=== PATIENT | female | born 1960 | race Caucasian/White ===

== ENCOUNTER → 2019-06-09 14:19 | Outpatient (BNVA) | payer MEDICAID, SELFPAY | PROVIDERS: Family Provider Nurse Practitioner Family; PCP Nurse Practitioner Family; Visit Provider Internal Medicine Cardiovascular Disease | DX: E87.6 Hypokalemia (principal) | CPT/HCPCS: 80048 ==

== ENCOUNTER 2019-06-13 07:15 | Outpatient (CLI) | payer MEDICAID, SELFPAY ==
[2019-06-13 07:20] VITALS: BMI 33.3
--- NOTE | 2019-06-13 07:20 | ECG_ITS ---
NAME OF STUDY: LEXISCAN SESTAMIBI STRESS TEST INDICATION: Chest Pain PROCEDURE: At the baseline, the EKG revealed normal sinus rhythm with diffuse nonspecific ST-T changes. Poor R wave progression. The baseline blood pressure was 134/79 mm Hg with a heart rate of70 beats/min. Lexiscan was infused over a period of 20 seconds. A total of 0.4 milligrams of Lexiscan was infused. The stress phase was continued for a total of 5 minutes. Heart rate at the end of the stress phase was 74 with a blood pressure 122/67. The EKG at the peak infusion revealed no significant changes; frequent PVCs were noted. Sestamibi was injected 20 seconds after the Lexiscan infusion. Blood pressure at the end of the recovery phase was 129/68 with a heart rate of 73 per minute. CONCLUSION: 1. No significant EKG changes with the LexiScan infusion 2. No LexiScan induced chest pain . Lexiscan induced ventricular arrhythmia was noted 3. Normal blood pressure and heart rate response 4. Sestamibi/sestamibi perfusion scan pending; see separate report. Electronically Signed On 06-17-2019 10:05:21 INSULATION BOARD CALENDER OPERATOR by Sofiya Duran M.D. [id number]
--- NOTE | 2019-06-13 07:21 | NMCV_ITS ---
Patrice Phillips Age: 59 Gender: F : 1960 Exam Date: 06/13/2019 08:04 Ordering Phys: Sofiya Duran MD ([email or web address]) Technologist: RERE Solis Exam Location: [facility] Indications: Chest pain STRESS TEST [facility] IMAGE PROTOCOL Rest/Stress 1 Lexiscan Day Radiopharmaceutical Dose (mCi) Administration Site Administered by Rest: Tc-99m 10.2 IV Pearl Fredy, [employer] Sestamibi Stress:Tc-99m 31.4 IV Pearl Carldeclan, AUTOMOTIVE GLASS MECH[employer]IC Sestamibi Rest: 13-Jun-2019 90 Discovery 630 Stress: 13-Jun-2019 60 Discovery 630 0.4mg Lexiscan. Images obtained in supine and prone position. SPECT RESULTS Technical Quality: Poor on rest study due to hot spot artifact Raw Data Analysis: Normal on stress images Image Corrections: No attenuation or motion correction applied Summed Stress Score: 4 Summed Rest Score: 35 Summed Difference Score: 0 PERFUSION FINDINGS Generalized attenuation of the tracer uptake in the resting images in view of the hotspot. Stress images showing some small areas of decreased tracer uptake in the anterior wall, inferior wall and apical segments. No significant reversibility was noted. FUNCTIONAL RESULTS (calculated via Gated SPECT) Stress Image LV EF (%): 47 Stress EDV (mL):163 TID: 1.26 Stress ESV (mL):87 FUNCTIONAL FINDINGS: Segmental wall motion analysis revealed diffuse hypokinesia of the left ventricle IMPRESSIONS 1. Technically difficult study because of the generalized attenuation artifact in the resting images. 2. Left ventricular ejection fraction 47% 3. LV wall motion analysis revealing mild diffuse hypokinesia of the left ventricle 4. Moderately dilated LV cavity 5. Elevated transient ischemic dilatation ratio may suggest endocardial ischemia The reliability of the of the findings are compromised. Consider repeating this test or other imaging modalities. Dr Sofiya Duran MD FACC (Electronically Signed) Final Date: 15 June 2019 18:35 S
--- NOTE | 2019-06-13 10:17 | PC.NURSE ---
STRESS TEST INFORMATION THIS NURSE WAS NOTIFIED BY NOELLE RESTREPO, [employer] [facility], THAT THE PATIENTS REST IMAGES WERE ABNORMAL ON THE ORIGINAL SCAN AND ON A REPEAT ONE 30 MINUTES LATER. NOELLE HAD NOTIFIED DR WILLINGHAM AND THE IMAGES WERE LOOKED AT. NEW ORDERS WERE RECEIVED FROM DR WILLINGHAM TO DO AN ECHO BEFORE PROCEEDING WITH THE STRESS TEST. GREGORIO FROM WAS NOTIFIED AND SHE NOTED THAT THE PATIENT HAD HAD A NORMAL ECHO LAST . DR WILLINGHAM WAS NOTIFIED OF THIS. ORDERS WERE GIVEN TO CANCEL THE ECHO AND RESUME THE STRESS TEST. GREGORIO FROM AND NOELLE FROM [employer] [facility] WERE NOTIFIED. THE PATIENT AND HER DAUGHTER IN LAW WERE UPDATED AND VERBALIZED THEIR UNDERSTANDING. THE STRESS TEST WAS THEN CARRIED OUT.
[2019-06-13] MEDS: regadenoson 0.4 Mg/5 ml Syringe IVP (10:56)
[2019-06-13 11:13] VITALS: BP 129/68; PULSE 78
== END 2019-06-13 07:16 | disposition home or self-care (01) ==
LOC: RAD 07:21 → CDL 08:23
PROVIDERS: Family Provider Nurse Practitioner Family; Visit Provider Internal Medicine Cardiovascular Disease
DX: R07.9 Chest pain, unspecified (principal)
CPT/HCPCS: 78452; 93017; A9500; J2785

== ENCOUNTER → 2019-06-16 14:48 | Outpatient (BNVA) | payer MEDICAID, SELFPAY | PROVIDERS: Family Provider Nurse Practitioner Family; Visit Provider Internal Medicine Cardiovascular Disease | DX: E87.6 Hypokalemia (principal) | CPT/HCPCS: 80048 ==

== ENCOUNTER → 2019-06-19 13:05 | Outpatient (BNVA) | payer MEDICAID, SELFPAY | PROVIDERS: Family Provider Nurse Practitioner Family; Visit Provider Internal Medicine Cardiovascular Disease | DX: E87.6 Hypokalemia (principal) | CPT/HCPCS: 36415; 80048 ==

== ENCOUNTER 2019-06-20 15:13 | Emergency (ER) | payer MEDICAID, SELFPAY | END 2019-06-20 22:04 | disposition admitted as inpatient to this hospital (09) | LOC: ER 07-16 10:16 | PROVIDERS: Emergency Provider Emergency Medicine; Family Provider Nurse Practitioner Family | DX: K72.00 Acute and subacute hepatic failure without coma (principal); F17.210 Nicotine dependence, cigarettes, uncomplicated | CPT/HCPCS: 36415; 36416; 70450; 80053; 80307; 81001; 82140; 82962; 84443; 85025; 85610; 85730; 93005; 96365; 99283; 99285; A9270 ==

== ENCOUNTER 2019-06-20 15:13 | Inpatient (IN) | payer MEDICAID, SELFPAY ==
[2019-06-20 15:20] VITALS: BP 166/103; PULSE 70; RESP 20; TEMP 36.6; O2SAT 95; BMI 31.3
--- NOTE | 2019-06-20 15:32 | CTR_ITS ---
PROCEDURE INFORMATION: Exam: CT Head Without Contrast Exam date and time: 06/20/2019 3:33 PM Age: 59 years old Clinical indication: Altered mental status/memory loss and dizziness; Patient HX: Found on floor at home. C/O dizziness and confusion. ; Additional info: Symptoms of acute stroke TECHNIQUE: Imaging protocol: Computed tomography of the head without contrast. Total DLP: 1037.15 mGy-cm Radiation optimization: All CT scans at this facility use at least one of these dose optimization techniques: automated exposure control; mA and/or kV adjustment per patient size (includes targeted exams where dose is matched to clinical indication); or iterative reconstruction. COMPARISON: CT head wo con* [id number] 11/06/2018 1:52 PM FINDINGS: Brain: Unchanged volume loss and small vessel disease changes. No hemorrhage. Unremarkable white matter. No mass effect. Ventricles: Normal. No ventriculomegaly. Bones/joints: Unremarkable. No acute fracture. Sinuses: Visualized sinuses are unremarkable. No fluid levels. Mastoid air cells: Visualized mastoid air cells are well aerated. Soft tissues: Unremarkable. CT/CT head wo con* [id number] IMPRESSION: No acute intracranial abnormality. Radiation Dose CTDIVOL = (mGy): DLP = 1037.15 (mGy-cm)
--- NOTE | 2019-06-20 15:32 | ECG_ITS ---
Measurements Intervals [place] Rate: 87 P: 46 [place]: 175 QRS: 66 QRSD: 101 T: 57 QT: 382 QTc: 460 SINUS RHYTHM POSSIBLE ANTERIOR MYOCARDIAL INFARCTION [30 ms Q WAVE IN V3/V4, OR R < 0.2 mV IN V4], OF INDETERMINATE AGE Compared to ECG 11/06/2018 18:26:09 Ventricular premature complex(es) no longer present Myocardial infarct finding still present Electronically Signed On 06-21-2019 18:01:39 HYDRAULIC OIL TOOL OPERATOR by Freddy Carrion M.D. [id number] f
[2019-06-20 16:23] LABS: Basophils % 0.3 %; Eosinophils # 0.2 10^3/uL (0.0-0.8); Eosinophils % 2.2 %; Hematocrit 48.6 % (37.0-47.0); Hemoglobin 16.8 g/dL (11.5-15.3); Lymphocytes # 2.4 10^3/uL (0.8-4.8); Lymphocytes % 33.2 %; Mean Corpuscular HGB Conc 34.6 g/dL (30.0-36.0); Mean Corpuscular Hemoglobin 33.9 pg (28.0-34.0); Mean Corpuscular Volume 98.2 fL (81-99); Mean Platelet Volume 10.7 fL (7.4-10.4); Monocytes # 0.8 10^3/uL (0.2-0.9); Neutrophils # 3.9 10^3/uL (1.8-7.7); Neutrophils % 53.2 %; Nucleated Red Blood Cells % 0 %; Platelet Count 112 10^3/cmm (130-400); Red Blood Count 4.95 10^6/uL (4.1-5.3); Red Cell Distribution Width 14.5 % (12.1-15.1); White Blood Count 7.4 10^3/uL (4.0-10.0)
[2019-06-20 16:33] LABS: INR 1.49 (0.8-1.2)
[2019-06-20 16:34] LABS: Partial Thromboplastin Time 35.8 SECONDS (23.9-36.7)
[2019-06-20 16:37] LABS: Alanine Aminotransferase 19 U/L (0-33); Albumin Level 3.1 g/dL (3.5-5.2); Alkaline Phosphatase 109 IU/L (35-105); Anion Gap 16.9 (5-19); Aspartate Amino Transferase 54 U/L (0-32); Blood Urea Nitrogen 10 mg/dL (8-23); Calcium 10.7 mg/dL (8.5-10.5); Carbon Dioxide 22 mmol/L (22-29); Chloride 98 mmol/L (98-107); Creatinine Clr Calc Pharmacy 98.7888; Globulin 4.7 g/dL (1.3-4.6); Glomerular Filtration Rate 101.6 mL/min (90-130); Glucose 77 mg/dL (74-106); Potassium 3.9 mmol/L (3.5-5.1); Sodium 133 mmol/L (136-145); Total Bilirubin 4.5 mg/dL (0.15-1.2); Total Protein 7.8 g/dL (6.6-8.7)
[2019-06-20 17:02] VITALS: BP 131/80; PULSE 88; RESP 20; TEMP 36.7; O2SAT 94
[2019-06-20 17:31] LABS: Glucose Point of Care 66 mg/dL (70-110)
[2019-06-20 18:51] LABS: Glucose Point of Care 91 mg/dL (70-110)
--- NOTE | 2019-06-20 18:53 | ED_ITS ---
Entered by Selena Hernandez, acting as scribe for Montez Liao MD Jun 20, 2019 15:13 HPI - Altered Mental Status General: Chief Complaint: Altered Mental Status Stated Complaint: Confused Time Seen by Provider: 06/20/19 18:54 Source: family and RN notes reviewed Mode of arrival: ambulatory Limitations: altered mental status History of Present Illness: HPI narrative: 59 yo female presents to ED with complaints of low potassium. The labs were drawn yesterday. The daughter states after she returned from taking her children to school this morning, she found t he patient was found on the floor this morning. The patient has a cataract on her R eye that she will be having surgery on soon with Dr Hernandez. The patient keeps saying she is fine. Her daughter gave the history. MD complaint: altered mental status Onset (ago): hour(s) Timing confirmed by: family member Severity: moderate Consistency of symptoms: Waxing and Waning Context: unknown Associated symptoms: Reports no associated symptoms; Deny depression Review of Systems Const: Denies: fever or chills ENMT: Denies: throat pain or mouth pain Card: Denies: chest pain Resp: Denies: shortness of breath GI: Denies: abdominal pain, nausea, vomiting or diarrhea : Denies: difficulty urinating Musc: Denies: back pain or joint pain Skin/Breast: Denies: rash Neuro: Reports: confusion; Denies: headache Psych: Denies: depression Endo: Denies: excessive urination Dudley/Lymph: Denies: easy bruising All/Imm: Denies: hives PFSH ED 2 PFSH: Statuses (acute, chronic, etc) shown below reflect problem list status as previously entered and may not be historically accurate Medical History (Updated 06/20/19 @ 21:16 by Montez Liao MD) Hypokalemia (Acute) Social History Smoking and tobacco status: current every day smoker Physical Exam Const: COMMON NORMALS: no apparent distress and healthy appearing HENMT: COMMON NORMALS: normocephalic and external nose normal HEAD & SCALP: normocephalic NOSE: external nose normal Eye: COMMON NORMALS: PERRL PUPIL: Yes PERRL Neck/C-Spine: COMMON NORMALS: full ROM and no lymphadenopathy Chest: COMMONS NORMALS: inspection of chest normal Resp: COMMON NORMALS: normal respiratory effort, no use of accessory muscles and clear to auscultation bilaterally AUSCULTATION: clear to auscultation bilaterally Cardio: COMMON NORMALS: regular rate and regular rhythm RATE: regular rate RHYTHM: regular rhythm GI: COMMON NORMALS: normal to inspection, nondistended, normoactive bowel s ounds, soft to palpation, non-tender and no masses PALPATION: Yes soft Back/Pelvis: THORACIC SPINE/UPPER BACK: Yes normal to inspection Extremity: COMMON NORMALS: normal to inspection, full ROM and normal capillary refill Neuro: OTHER: Patient is confused. She is orientated to self disorientated to time and place. Psych: COMMON NORMALS: mental status grossly normal and cooperative Skin: COMMON NORMALS: no rashes or lesions noted GENERAL SKIN EXAM: no rashes or lesions noted Course Vital Signs: Vital signs: Vital Signs Temperature 98.1 F 06/20/19 17:02 Pulse Rate 88 06/20/19 17:02 Respiratory Rate 20 H 06/20/19 17:02 Blood Pressure 131/80 06/20/19 17:02 Pulse Oximetry 94 06/20/19 17:02 MDM - Altered Mental Status MDM Narrative: Medical decision making narrative: Patient presents here with altered mental status and confusion likely from hepatic encephalopathy. Patient has not been taking her lactulose and her ammonia level is elevated. We will give her lactulose here and I spoke to hospitalist and will admit for further treatment. She has no signs of meningitis. Head CT here is normal. Patient also likely has slight dementia as well. Lab Data: Labs: Lab Results 06/20/19 06/20/19 06/20/19 Range/Units 16:15 16:15 16:15 WBC 7.4 (4.0-10.0) 10^3/ uL RBC 4.95 (4.1-5.3) 10^6/u L Hgb 16.8 H (11.5-15.3) g/dL Hct 48.6 H (37.0-47.0) % MCV 98.2 (81-99) fL MCH 33.9 (28.0-34.0) pg MCHC 34.6 (30.0-36.0) g/dL RDW 14.5 (12.1-15.1) % Plt Count 112 L (130-400) 10^3/c mm MPV 10.7 H (7.4-10.4) fL Neut % (Auto) 53.2 % Lymph % (Auto) 33.2 % Gates % (Auto) 11.0 % Eos % (Auto) 2.2 % Baso % (Auto) 0.3 % Neut # (Auto) 3.9 (1.8-7.7) 10^3/u L Lymph # (Auto) 2.4 (0.8-4.8) 10^3/u L Gates # (Auto) 0.8 (0.2-0.9) 10^3/u L Eos # (Auto) 0.2 (0.0-0.8) 10^3/u L Baso # (Auto) 0.0 (0.0-0.1) 10^3/u L Nucleated RBC % (a uto) 0 % Nucleated RBCs # 0.0 /100WBC PT 18.50 H (10.5-13.3) SECO NDS INR 1.49 H (0.8-1.2) APTT 35.8 (23.9-36.7) SECO NDS Sodium 133 L (136-145) mmol/L Potassium 3.9 (3.5-5.1) mmol/L Chloride 98 (98-107) mmol/L Carbon Dioxide 22 (22-29) mmol/L Anion Gap 16.9 (5-19) BUN 10 (8-23) mg/dL Creatinine 0.6 (0.5-0.9) mg/dL GFR Calculation 101.6 (90-130) mL/min Glucose 77 (74-106) mg/dL POC Glucose (70-110) mg/dL Calcium 10.7 H (8.5-10.5) mg/dL Total Bilirubin 4.5 H (0.15-1.2) mg/dL AST 54 H (0-32) U/L ALT 19 (0-33) U/L Alkaline Phosphata se 109 H (35-105) IU/L Ammonia (11-51) umol/L Total Protein 7.8 (6.6-8.7) g/dL Albumin 3.1 L (3.5-5.2) g/dL Globulin 4.7 H (1.3-4.6) g/dL Urine Color (Yellow) Urine Appearance (CLEAR) Urine pH (5-7) Ur Specific Gravit y (1.005-1.030) Urine Protein (Negative) Urine Glucose (UA) (Normal) Urine Ketones (Negative) Urine Occult Blood (Negative) Urine Nitrate (Negative) Urine Bilirubin (NEGATIVE) Urine Urobilinogen (Negative) mg/dL Ur Leukocyte Lori ase (Negative) Urine RBC (0-2) /hpf Urine WBC (0-5) /hpf Ur Squamous Epith Cells (0-5) Urine Bacteria (NONE) Urine Mucus Urine Opiates Scre en (Negative) ng/mL Ur Barbiturates Sc reen (Negative) ng/mL Ur Phencyclidine S crn (Negative) ng/mL Ur Amphetamines Sc reen (Negative) ng/mL U Benzodiazepines Scrn (Negative) ng/mL Urine Cocaine Scre en (Negative) ng/mL U Marijuana (THC) Screen (Negative) ng/mL 06/20/19 06/20/19 06/20/19 Range/Units 17:28 18:47 19:05 WBC (4.0-10.0) 10^3/ uL RBC (4.1-5.3) 10^6/u L Hgb (11.5-15.3) g/dL Hct (37.0-47.0) % MCV (81-99) fL MCH (28.0-34.0) pg MCHC (30.0-36.0) g/dL RDW (12.1-15.1) % Plt Count (130-400) 10^3/c mm MPV (7.4-10.4) fL Neut % (Auto) % Lymph % (Auto) % Gates % (Auto) % Eos % (Auto) % Baso % (Auto) % Neut # (Auto) (1.8-7.7) 10^3/u L Lymph # (Auto) (0.8-4.8) 10^3/u L Gates # (Auto) (0.2-0.9) 10^3/u L Eos # (Auto) (0.0-0.8) 10^3/u L Baso # (Auto) (0.0-0.1) 10^3/u L Nucleated RBC % (a uto) % Nucleated RBCs # /100WBC PT (10.5-13.3) SECO NDS INR (0.8-1.2) APTT (23.9-36.7) SECO NDS Sodium (136-145) mmol/L Potassium (3.5-5.1) mmol/L Chloride (98-107) mmol/L Carbon Dioxide (22-29) mmol/L Anion Gap (5-19) BUN (8-23) mg/dL Creatinine (0.5-0.9) mg/dL GFR Calculation (90-130) mL/min Glucose (74-106) mg/dL POC Glucose 66 91 (70-110) mg/dL Calcium (8.5-10.5) mg/dL Total Bilirubin (0.15-1.2) mg/dL AST (0-32) U/L ALT (0-33) U/L Alkaline Phosphata se (35-105) IU/L Ammonia (11-51) umol/L Total Protein (6.6-8.7) g/dL Albumin (3.5-5.2) g/dL Globulin (1.3-4.6) g/dL Urine Color Yellow (Yellow) Urine Appearance Cloudy (CLEAR) Urine pH 5 (5-7) Ur Specific Gravit y 1.020 (1.005-1.030) Urine Protein Trace (Negative) Urine Glucose (UA) Norm (Normal) Urine Ketones 1+ H (Negative) Urine Occult Blood 2+ H (Negative) Urine Nitrate Negative (Negative) Urine Bilirubin 1+ H (NEGATIVE) Urine Urobilinogen 12 H (Negative) mg/dL Ur Leukocyte Lori ase Negative (Negative) Urine RBC 5-10 H (0-2) /hpf Urine WBC 0-4 H (0-5) /hpf Ur Squamous Epith Cells 0-4 H (0-5) Urine Bacteria 1+ H (NONE) Urine Mucus 1+ Urine Opiates Scre en (Negative) ng/mL Ur Barbiturates Sc reen (Negative) ng/mL Ur Phencyclidine S crn (Negative) ng/mL Ur Amphetamines Sc reen (Negative) ng/mL U Benzodiazepines Scrn (Negative) ng/mL Urine Cocaine Scre en (Negative) ng/mL U Marijuana (THC) Screen (Negative) ng/mL 06/20/19 06/20/19 Range/Units 19:05 20:26 WBC (4.0-10.0) 10^3/ uL RBC (4.1-5.3) 10^6/u L Hgb (11.5-15.3) g/dL Hct (37.0-47.0) % MCV (81-99) fL MCH (28.0-34.0) pg MCHC (30.0-36.0) g/dL RDW (12.1-15.1) % Plt Count (130-400) 10^3/c mm MPV (7.4-10.4) fL Neut % (Auto) % Lymph % (Auto) % Gates % (Auto) % Eos % (Auto) % Baso % (Auto) % Neut # (Auto) (1.8-7.7) 10^3/u L Lymph # (Auto) (0.8-4.8) 10^3/u L Gates # (Auto) (0.2-0.9) 10^3/u L Eos # (Auto) (0.0-0.8) 10^3/u L Baso # (Auto) (0.0-0.1) 10^3/u L Nucleated RBC % (a uto) % Nucleated RBCs # /100WBC PT (10.5-13.3) SECO NDS INR (0.8-1.2) APTT (23.9-36.7) SECO NDS Sodium (136-145) mmol/L Potassium (3.5-5.1) mmol/L Chloride (98-107) mmol/L Carbon Dioxide (22-29) mmol/L Anion Gap (5-19) BUN (8-23) mg/dL Creatinine (0.5-0.9) mg/dL GFR Calculation (90-130) mL/min Glucose (74-106) mg/dL POC Glucose (70-110) mg/dL Calcium (8.5-10.5) mg/dL Total Bilirubin (0.15-1.2) mg/dL AST (0-32) U/L ALT (0-33) U/L Alkaline Phosphata se (35-105) IU/L Ammonia 91 H (11-51) umol/L Total Protein (6.6-8.7) g/dL Albumin (3.5-5.2) g/dL Globulin (1.3-4.6) g/dL Urine Color (Yellow) Urine Appearance (CLEAR) Urine pH (5-7) Ur Specific Gravit y (1.005-1.030) Urine Protein (Negative) Urine Glucose (UA) (Normal) Urine Ketones (Negative) Urine Occult Blood (Negative) Urine Nitrate (Negative) Urine Bilirubin (NEGATIVE) Urine Urobilinogen (Negative) mg/dL Ur Leukocyte Lori ase (Negative) Urine RBC (0-2) /hpf Urine WBC (0-5) /hpf Ur Squamous Epith Cells (0-5) Urine Bacteria (NONE) Urine Mucus Urine Opiates Scre en Negative (Negative) ng/mL Ur Barbiturates Sc reen Negative (Negative) ng/mL Ur Phencyclidine S crn Negative (Negative) ng/mL Ur Amphetamines Sc reen Negative (Negative) ng/mL U Benzodiazepines Scrn Negative (Negative) ng/mL Urine Cocaine Scre en Negative (Negative) ng/mL U Marijuana (THC) Screen Negative (Negative) ng/mL Imaging Data^: CT Head: Radiologist's impression: [place] [address] CT Scan Report Signed Patient: Patrice Phillips Unit #: [id number] : 1960 Acct#:O [id number] Age/Sex: 59 / F ADM Date: 06/20/19 Loc: ER Room/Bed: Attending Dr: Ordering Provider/Ordering MD: Alverto Powell DO Date of Service: 06/20/19 Procedure(s): CT head wo con* [id number] Accession Number(s): [id number] Report Number: [id number] PROCEDURE INFORMATION: Exam: CT Head Without Contrast Exam date and time: 06/20/2019 3:33 PM Age: 59 years old Clinical indication: Altered mental status/memory loss and dizziness; Patient HX: Found on floor at home. C/O dizziness and confusion. ; Additional info: Symptoms of acute stroke TECHNIQUE: Imaging protocol: Computed tomography of the head without contrast. Total DLP: 1037.15 mGy-cm Radiation optimization: All CT scans at this facility use at least one of these dose optimization techniques: automated exposure control; mA and/or kV adjustment per patient size (includes targeted exams where dose is matched to clinical indication); or iterative reconstruction. COMPARISON: CT head wo con* [id number] 11/06/2018 1:52 PM FINDINGS: Brain: Unchanged volume loss and small vessel disease changes. No hemorrhage. Unremarkable white matter. No mass effect. Ventricles: Normal. No ventriculomegaly. Bones/joints: Unremarkable. No acute fracture. Sinuses: Visualized sinuses are unremarkable. No fluid levels. Mastoid air cells: Visualized mastoid air cells are well aerated. Soft tissues: Unremarkable. CT/CT head wo con* [id number] IMPRESSION: No acute intracranial abnormality. Radiation Dose CTDIVOL = (mGy): DLP = 1037.15 (mGy-cm) Dictated By: Dawn Padron Signed By: Dawn Padron Signed Date/Time: 06/20/19 1615 DD/ Discharge Plan Discharge Patient Disposition: Admitted As Inpatient Admit Provider: Freddy Frost Clinical Impression: Acute hepatic encephalopathy Condition: Stable Referrals: Katherine Wolf FNP-C [Family Provider] - Coding Level of Care Code ED Registered Public Health Nurse for Chg Fwd Exam Problem Focused The documentation recorded by the Mary duff Valerie R, accurately reflects the service I personally performed and the decisions made by Yanni melvin Korby, MD Jun 20, 2019 15:13
[2019-06-20 19:50] LABS: Add Urine Microscopic? YES; Bacteria Urine 1+; Bilirubin Urine 1+ (NEGATIVE); Blood Urine 2+ (Negative); Glucose Urine UA Norm (Normal); Ketones Urine 1+ (Negative); Leukocyte Esterase Urine Negative (Negative); Mucus Urine 1+; Nitrate Urine Negative (Negative); Protein Urine Trace (Negative); Squamous Epithelial Cell Urine 0-4 (0-5); Urine Appearance Cloudy (CLEAR); Urine Color Yellow (Yellow); Urobilinogen Urine 12 mg/dL (Negative); WBC Urine 0-4 /hpf (0-5); pH Urine 5 (5-7)
[2019-06-20 19:51] LABS: Add Urine Culture? No
[2019-06-20 20:32] LABS: Amphetamines Screen Urine Negative (Negative); Barbiturates Screen Urine Negative (Negative); Benzodiazepines Screen Urine Negative (Negative); Cocaine Screen Urine Negative (Negative); Opiate Screen Urine Negative (Negative); PCP Screen Urine Negative (Negative); THC Screen Urine Negative (Negative)
[2019-06-20 20:47] LABS: Ammonia 91 umol/L (11-51)
--- NOTE | 2019-06-20 21:30 | PM.HP ---
Providers/Chief Complaint Admitting Physician: Freddy Frost MD Chief Complaint: Confused History of Present Illness Patrice Phillips is a 59 year old female who carries diagnosis of liver cirrhosis which seems secondary to portal vein thrombosis, gastroesophageal varices, splenomegaly, portal hypertension, multiple admissions secondary to hepatic encephalopathy was brought in by the family because of acute change in mental status. [id number] is in the room who is endorsing that at baseline she is able to converse and communicate well able to make her needs known, she smokes 1 pack/day, for last 2 to 3 days she has been more confused and this morning she was found in her bathtub playing with paper towels while she was awake and alert. She is a constipated she had 1 small bowel movement yesterday which was very hard as per the [id number]. Patient is not able to give me much details she is a poor historian. She is not taking lactulose or rifaximin, she was taking lactulose about [address] Duran has done a cardiac stress test which was negative, he also stopped Lasix because of hypokalemia. Diagnostics in ER showed normal hemodynamics, pleasantly confused, patient wanted to go outside and smoke, no asterixis, Systolic blood pressure 157, no signs of sepsis, electrolyte abnormality CT head negative for any acute changes Review of Systems Const: Reports: fatigue, malaise and daytime sleepiness Eyes: Reports: change in vision, photophobia, eye discomfort, eye discharge and eye redness; Denies: blurry vision ENMT: Denies: throat pain or uvular edema Card: Denies: chest pain Resp: Denies: shortness of breath GI: Denies: abdominal pain : Denies: flank pain Musc: Denies: neck pain Skin/Breast: Denies: rash Neuro: Reports: confusion; Denies: headache or lack of coordination Psych: Reports: anxiety Endo: Denies: excessive urination Dudley/Lymph: Denies: easy bruising All/Imm: Denies: hives Medications/Allergies Home Medications Medication Instructions Recorded Confirmed Last Taken Type Unable to Assess 06/20/19 06/20/19 Unknown History Allergies Allergy/AdvReac Type Severity Reaction Status Date / Time Sulfa (Sulfonamide Allergy Unknown unknown Verified 06/09/19 13:52 Antibiotics) PFSH Acute PFSH: Statuses (acute, chronic, etc) shown below reflect problem list status as previously entered and may not be historically accurate Medical History (Updated 06/20/19 @ 21:49 by Freddy Frost MD) Anxiety (Acute) Diastolic congestive heart failure (Acute) Esophageal varices (Acute) Glaucoma (Acute) Hepatic encephalopathy (Acute) Hypertension (Acute) Hypokalemia (Acute) Liver cirrhosis (Acute) Portal hypertension (Acute) PVT (portal vein thrombosis) (Acute) Splenomegaly (Acute) Surgical History (Updated 06/20/19 @ 21:49 by Freddy Frost MD) History of cataract surgery (Acute) History of removal of pigmented skin lesion (Acute) Family History (Updated 06/20/19 @ 21:32 by Freddy Frost MD) Other CAD (coronary artery disease) Hypertension Social History (Updated 06/20/19 @ 21:49 by Freddy Frost MD) Smoking and tobacco status: current every day smoker cigarettes Packs smoked per day: 1 Alcohol intake: never Substance/Drug Use: never Caregiver/support person: Yes Lives independently: No Household members: family Vitals/I&O/Wt Last Vital Signs Temp 98.1 F 06/20/19 17:02 Pulse 88 06/20/19 17:02 Resp 20 H 06/20/19 17:02 BP 131/80 06/20/19 17:02 Pulse Ox 94 06/20/19 17:02 Weight last 48 hrs Weight 80.286 kg Physical Exam Narrative: EXAM NARRATIVE: Patient was sitting in her chair without any active discomfort She was a bit agitated because she wanted to smoke and go outside No flapping tremors, she was awake alert oriented x3, GCS 15, positive bilateral pulmonary edema, Abdomen soft, distended, with obesity, bowel sounds present, splenomegaly, nontender, Lower extremity bilateral lower extremity 1+ pitting edema Her right eye is hyperemic with conjunctival injections and feels a bit hard she has blurry vision S1, S2, no JVD Lungs are clear to auscultation Digital clubbing positive Anxious mood No signs of ischemia gangrene or ulcer on extremities Data : 06/20/19 16:15 06/20/19 16:15 A&P Assessment and plan (1) Hepatic encephalopathy: Status: Acute Code(s): K72.90 - Hepatic failure, unspecified without coma Additional A&P Information Acute hepatic encephalopathy secondary to constipation Liver cirrhosis most likely secondary to portal vein thrombosis She is not using lactulose or rifaximin I would continue both with target bowel movements 2-3 and a day No electrolyte abnormality, no signs of infection, will get KUB to assess stool burden I would use ceftriaxone because she has history of gastroesophageal varices Ceftriaxone 1 g every day prophylactic to prevent gastroesophageal bleed Avoid use of anticoagulation and use SCDs for DVT prophylaxis Conjunctival injections with hyperemia: She has a history of glaucoma I would use eyedrops with ciprofloxacin She recently had cataract surgery as well History of hypothyroidism: We will check TSH level Diastolic congestive heart failure: She has bilateral lower extremity edema Recently Dr. Duran has discontinued Lasix I would hold off on Lasix for now Active smoker: Smokes 1 pack/day, will use high-dose nicotine patch Patient is full code No DVT prophylaxis because of risk of bleed from gastroesophageal varices Attestations Medical Necessity Statement*: Anticipating her stay to cross more than 2 midnights because of hepatic encephalopathy, constipation Time Spent in Patient Care: 45 Coding Level of Care Code Acute Retail Operations Specialist for Zaheer Foley Diagnoses Hepatic encephalopathy K72.90
[2019-06-20 21:32] VITALS: BP 159/97; PULSE 112; RESP 18; O2SAT 91
[2019-06-20 22:00] VITALS: BP 157/97; PULSE 110; RESP 16; O2SAT 92
[2019-06-20] MEDS: lactulose oral liq 20 gm/30 mL UDC 30 GM PO (22:05)
[2019-06-20 22:22] VITALS: BP 136/56; PULSE 102; RESP 19; TEMP 36.8; O2SAT 92
--- NOTE | 2019-06-20 22:24 | XRR_ITS ---
PROCEDURE INFORMATION: Exam: XR Abdomen, 1 View Exam date and time: 06/20/2019 10:25 PM Age: 59 years old Clinical indication: Constipation; Prior surgery; Surgery date: 6+ months; Surgery type: Hysterectomy TECHNIQUE: Imaging protocol: XR of the abdomen. Views: Frontal supine view of the abdomen. 1 View. COMPARISON: No relevant prior studies available. FINDINGS: Gastrointestinal tract: Normal. No bowel dilation. Cholecystectomy clips are noted. There is abundant colonic stool. No impaction. No nephrolithiasis. Probable phleboliths are noted in the pelvis. Bones/joints: Unremarkable. XR/XR KUB [id number] IMPRESSION: No acute findings.
[2019-06-20] MEDS: cefTRIAXone 1,000 MG in sodium chloride 0.9% (plus) 50 ML 100 MG IV (23:22)
[2019-06-20] MEDS: nicotine 21 mg Patch 1 PATCH TRANSDERMA (23:23)
[2019-06-20 23:56] LABS: Thyroid Stimulating Hormone 0.04 uIU/mL (0.27-4.20)
[2019-06-21] VITALS (7 sets, daily range): BP systolic 109–138; BP diastolic 66–78; PULSE 68–96; RESP 16–22; TEMP 36.3–37.1; O2SAT 91–99
[2019-06-21] MEDS: lactulose oral liq 20 gm/30 mL UDC 200 GM PR (02:12)
[2019-06-21 06:44] LABS: Basophils % 0.5 %; Eosinophils # 0.1 10^3/uL (0.0-0.8); Eosinophils % 2.6 %; Hematocrit 38.1 % (37.0-47.0); Hemoglobin 13.4 g/dL (11.5-15.3); Lymphocytes # 1.5 10^3/uL (0.8-4.8); Lymphocytes % 34.6 %; Mean Corpuscular HGB Conc 35.2 g/dL (30.0-36.0); Mean Corpuscular Hemoglobin 33.6 pg (28.0-34.0); Mean Corpuscular Volume 95.5 fL (81-99); Mean Platelet Volume 10.4 fL (7.4-10.4); Monocytes # 0.4 10^3/uL (0.2-0.9); Monocytes % 9.5 %; Neutrophils # 2.2 10^3/uL (1.8-7.7); Neutrophils % 52.6 %; Nucleated Red Blood Cells % 0 %; Platelet Count 82 10^3/cmm (130-400); Red Blood Count 3.99 10^6/uL (4.1-5.3); Red Cell Distribution Width 14.3 % (12.1-15.1); White Blood Count 4.2 10^3/uL (4.0-10.0)
[2019-06-21 06:46] LABS: Glucose Point of Care 108 mg/dL (70-110)
[2019-06-21 06:56] LABS: Alanine Aminotransferase 17 U/L (0-33); Albumin Level 2.8 g/dL (3.5-5.2); Alkaline Phosphatase 90 IU/L (35-105); Anion Gap 13.2 (5-19); Aspartate Amino Transferase 58 U/L (0-32); Blood Urea Nitrogen 10 mg/dL (8-23); Carbon Dioxide 26 mmol/L (22-29); Chloride 102 mmol/L (98-107); Globulin 3.3 g/dL (1.3-4.6); Glomerular Filtration Rate 85.1 mL/min (90-130); Glucose 118 mg/dL (74-106); Potassium 3.2 mmol/L (3.5-5.1); Sodium 138 mmol/L (136-145); Total Protein 6.1 g/dL (6.6-8.7)
[2019-06-21] MEDS: lisinopril 10 mg Tablet PO (08:10)
[2019-06-21] MEDS: levothyroxine 25 mcg Tablet PO (08:10)
[2019-06-21] MEDS: nicotine 21 mg Patch 1 PATCH TRANSDERMA (08:12)
[2019-06-21] MEDS: brimonidine 0.2% Op Soln 5 mL Btl 1 DROP EYE-BOTH ×3 (08:12→21:23)
[2019-06-21 11:15] LABS: Glucose Point of Care 93 mg/dL (70-110)
--- NOTE | 2019-06-21 13:41 | USR_ITS ---
PROCEDURE INFORMATION: Exam: US Abdomen Limited Exam date and time: 06/21/2019 3:57 PM Age: 59 years old Clinical indication: Other: Abdomen distended; Additional info: Check ascites TECHNIQUE: Imaging protocol: Real-time ultrasound of the abdomen with image documentation. Examination is focused on the region of clinical interest. COMPARISON: US Abdomen* [id number] 03/30/2018 11:11 AM FINDINGS: Spleen: Spleen is enlarged measuring 13.3 centimetres. Intraperitoneal space: No ultrasound evidence for ascites. US/US abdomen limited [id number] IMPRESSION: Mild splenomegaly. No visualized intraperitoneal ascites.
[2019-06-21] MEDS: lactulose oral liq 20 gm/30 mL UDC PO ×2 (14:36→21:23)
[2019-06-21 16:21] LABS: Glucose Point of Care 110 mg/dL (70-110)
--- NOTE | 2019-06-21 17:55 | PM.PN ---
Subjective Subjective: Interval history: This morning she wakes up easily. Reports feeling better. She is oriented to being in the hospital, does not remember the year, although her family by the bedside reports she usually does not. Vitals/I&O/Wt Last Vital Signs Temp 98.7 F 06/21/19 16:39 Pulse 68 06/21/19 16:39 Resp 16 06/21/19 17:47 BP 138/78 06/21/19 16:39 Pulse Ox 97 06/21/19 16:39 06/21/19 06/21/19 06/21/19 06:59 14:59 22:59 Intake Total 50 / 50 360 / 360 Output Total 400 / 400 Balance -350 / -350 360 / 360 Weight last 48 hrs Weight 80.286 kg Physical Exam Const: COMMON NORMALS: no apparent distress; negative for oriented x3 OTHER: Overall slightly sluggish responses. Oriented to person and place. Mental status reported much better by her family. HENMT: COMMON NORMALS: oropharynx normal Neck/C-Spine: COMMON NORMALS: no JVD Resp: COMMON NORMALS: normal respiratory effort and clear to auscultation bilaterally AUSCULTATION: clear to auscultation bilaterally Cardio: COMMON NORMALS: no JVD, regular rhythm, S1 normal heart sound, S2 normal heart sound and no murmurs RHYTHM: regular rhythm HEART SOUNDS: S1 normal and S2 normal GI: COMMON NORMALS: normal to inspection, nondistended, normoactive bowel sounds, soft to palpation and non-tender PALPATION: Yes soft Extremity: COMMON NORMALS: no joint enlargement and no pedal edema Neuro: COMMON NORMALS: moves all extremities; negative for oriented x3 Skin: COMMON NORMALS: no rashes or lesions noted GENERAL SKIN EXAM: no rashes or lesions noted Data : 06/21/19 05:58 06/21/19 05:58 A&P Assessment and plan (1) Hepatic encephalopathy: With elevated ammonia on presentation. Started on lactulose, rifaximin. This morning mental status appears to be better. Baseline is not entirely clear, although per discussion with family who I presume to be the daughter at bedside reports she is normally not oriented to year. Has had multiple bowel movements. Discussed both with her and family the need to maintain lactulose and goal of 2-3 bowel movements per day to avoid recurrent hepatic encephalopathy and more serious complications including coma and . They verbalized understanding. Ordered abdominal ultrasound to assess for ascites. She was reporting feeling better and was wanting to return home today, but was agreeable to stay for additional assessment to rule out need for paracentesis, and ensured that her mental status changes do not return. On evaluation abdominal ultrasound this evening, does not have ascites. Will discontinue Rocephin. Possible history of esophageal varices. Once stable may benefit from initiation of beta-catherine. Status: Acute Code(s): K72.90 - Hepatic failure, unspecified without coma (2) Hypothyroidism: TSH is low. Will decrease levothyroxine dose to 12.5 mcg. Follow-up level in 3 weeks. Status: Acute Code(s): E03.9 - Hypothyroidism, unspecified (3) Diastolic congestive heart failure: With trace pedal edema. Otherwise is not in decompensation. She denies any shortness of breath, does not have any orthopnea. Saturating well on room air. Monitor for any further fluid overload. Lasix for now on hold. Status: Acute Code(s): I50.30 - Unspecified diastolic (congestive) heart failure (4) Smoking addiction: Encourage cessation. Nicotine patch was ordered for cravings. Status: Acute Code(s): F17.200 - Nicotine dependence, unspecified, uncomplicated Additional A&P Information Conjunctival injections with hyperemia: Resolved. Was started on eyedrops with ciprofloxacin She recently had cataract surgery as well Attestations Medical Necessity Statement*: Continue admission for assessment and management of acute encephalopathy, hepatic encephalopathy. Coding Level of Care Code Acute Real Estate Paralegal for [facility] Diagnoses Hepatic encephalopathy K72.90 Hypothyroidism E03.9 Diastolic congestive heart failure I50.30 Smoking addiction F17.200
[2019-06-21 20:59] LABS: Glucose Point of Care 183 mg/dL (70-110)
[2019-06-21] MEDS: latanoprost 0.005% Op Soln 2.5 mL Btl 1 DROP EYE-BOTH (21:23)
[2019-06-22] VITALS (8 sets, daily range): BP systolic 94–132; BP diastolic 55–76; PULSE 78–86; RESP 17–18; TEMP 36.7–37.1; O2SAT 90–94
[2019-06-22 05:54] LABS: Basophils % 0.3 %; Eosinophils # 0.1 10^3/uL (0.0-0.8); Eosinophils % 2.6 %; Hematocrit 35.6 % (37.0-47.0); Hemoglobin 12.7 g/dL (11.5-15.3); Lymphocytes # 1.2 10^3/uL (0.8-4.8); Lymphocytes % 30.9 %; Mean Corpuscular HGB Conc 35.7 g/dL (30.0-36.0); Mean Corpuscular Hemoglobin 34.7 pg (28.0-34.0); Mean Corpuscular Volume 97.3 fL (81-99); Mean Platelet Volume 12.3 fL (7.4-10.4); Monocytes # 0.4 10^3/uL (0.2-0.9); Monocytes % 10.3 %; Neutrophils # 2.2 10^3/uL (1.8-7.7); Neutrophils % 55.6 %; Nucleated Red Blood Cells % 0 %; Platelet Count 73 10^3/cmm (130-400); Red Blood Count 3.66 10^6/uL (4.1-5.3); Red Cell Distribution Width 13.8 % (12.1-15.1); White Blood Count 3.9 10^3/uL (4.0-10.0)
[2019-06-22 06:11] LABS: Alanine Aminotransferase 17 U/L (0-33); Albumin Level 2.5 g/dL (3.5-5.2); Alkaline Phosphatase 77 IU/L (35-105); Anion Gap 12.6 (5-19); Aspartate Amino Transferase 52 U/L (0-32); Blood Urea Nitrogen 6 mg/dL (8-23); Calcium 8.7 mg/dL (8.5-10.5); Carbon Dioxide 24 mmol/L (22-29); Chloride 98 mmol/L (98-107); Globulin 2.6 g/dL (1.3-4.6); Glomerular Filtration Rate 125.4 mL/min (90-130); Glucose 102 mg/dL (74-106); Sodium 132 mmol/L (136-145); Total Bilirubin 3.2 mg/dL (0.15-1.2); Total Protein 5.1 g/dL (6.6-8.7)
[2019-06-22 06:25] LABS: Potassium 2.6 mmol/L (3.5-5.1)
[2019-06-22 06:29] LABS: Glucose Point of Care 102 mg/dL (70-110)
[2019-06-22 06:56] LABS: Ammonia 51 umol/L (11-51)
[2019-06-22 08:48] LABS: Magnesium 1.6 mg/dL (1.7-2.3)
[2019-06-22] MEDS: levothyroxine 25 mcg Tablet 12.5 MCG PO (09:15)
[2019-06-22] MEDS: lisinopril 10 mg Tablet PO (09:16)
[2019-06-22] MEDS: nicotine 21 mg Patch 1 PATCH TRANSDERMA (09:16)
[2019-06-22] MEDS: potassium chloride premix 40 MEQ/100 ML PREMIX 25 MEQ IV ×2 (09:17→12:01)
[2019-06-22] MEDS: brimonidine 0.2% Op Soln 5 mL Btl 1 DROP EYE-BOTH ×3 (09:26→21:55)
[2019-06-22 10:54] LABS: Glucose Point of Care 155 mg/dL (70-110)
--- NOTE | 2019-06-22 11:23 | XRR_ITS ---
PROCEDURE INFORMATION: Exam: XR Chest, 1 View Exam date and time: 06/22/2019 1:26 PM Age: 59 years old Clinical indication: Patient HX: Confusion, per HX in chart, no smoking HX, no surg on chest, no HX of CA. TECHNIQUE: Imaging protocol: XR of the chest Views: 1 view. COMPARISON: CR Chest 1 [place] [id number] 11/08/2018 1:46 PM FINDINGS: Lungs: Unremarkable. No consolidation. Pleural space: Unremarkable. No pleural effusion. No pneumothorax. Heart/Mediastinum: Heart size not optimally evaluated with a single AP view of the chest. Bones/joints: Unremarkable. XR/XR chest 1V portable [id number] IMPRESSION: No evidence for acute cardiopulmonary disease.
[2019-06-22] MEDS: lactulose oral liq 20 gm/30 mL UDC PO ×3 (11:59→21:34)
[2019-06-22] MEDS: magnesium sulfate premix 2 GM/50 ML PIGGYBACK IV (12:00)
--- NOTE | 2019-06-22 12:05 | PC.CHAP ---
Pastoral Care Encounter/Spiritual Assessment Type of Contact [] Declined auto finance sales rep visit [] Patient/Family/Request visit [] Outpatient visit [] Follow-up visit [] Physician referral [] Code/Alert [] Routine visit [] Staff referral [] Actively dying [] Patient sleeping [] Family support [] [] Out of room [] Palliative care [] [] Receiving care in room [] Pre-surgical visit [] Trauma [] Long length of stay [] ICU visit [] Other: Relational/Emotional Strength [x] Patient feels connected with others/family/visitors/staff [] Distress [] Loneliness/isolation [] Abandonment Spirituality of Patient [x] Person of Lizzie [] Attends Mosque of their Lizzie [x] Believes in Prayer [] Reads Bible or Orthodox materials [] There are Spiritual issues to be addressed General Internist Interventions [x] Prayer [x] Active listening [x] Non-anxious presence [x] Spiritual/emotional support [] Crisis/trauma care [] Spiritual counseling [] Bereavement support [] Provided bereavement packet [] Provided Bible/devotional materials [] Provided toy/stuffed animal, coloring book to patient or family member [x] Completed spiritual assessment [] Provided Communion [] Anointing/[place] [] Salvation [] Other: Impact on Illness or Injury [] Angry [] Fearful [] Anxious [] Often cries [] Exhaustion [] Unable to work [] Unable to attend anabaptism [] Unable to walk/stand [] Unable to read [] Unable to drive [] Unable to eat/drink [] Unable to sleep [] Unable to be with family [] Other: Summary General Internist prayed with Patient. Time spent with patient 5 minutes.
--- NOTE | 2019-06-22 12:16 | PM.PN ---
Subjective Subjective: Interval history: Today she is somewhat more engrossed in her own thoughts, is playing with the bed railing at the time of my visit. Does respond to questions, although appears somewhat more disoriented compared to yesterday. Responds she is in [facility], but does not remember the year, and is not sure what building she is in currently. Subsequently starts calling out names, possibly of friends or relatives, and trying to recall some details about them which were not asked. Vitals/I&O/Wt Last Vital Signs Temp 98.0 F 06/22/19 11:46 Pulse 78 06/22/19 11:46 Resp 18 06/22/19 11:46 BP 132/76 06/22/19 11:46 Pulse Ox 94 06/22/19 11:46 06/21/19 06/22/19 06/22/19 22:59 06:59 14:59 Intake Total 428.333 / 428.333 Output Total 350 / 350 750 / 1100 400 / 400 Balance -350 / 10 -750 / -740 28.333 / 28.333 Weight last 48 hrs Weight 80.286 kg Physical Exam Const: COMMON NORMALS: no apparent distress; negative for oriented x3 OTHER: Overall slightly sluggish responses. Oriented to person and place. Mental status reported much better by her family. HENMT: COMMON NORMALS: oropharynx normal Neck/C-Spine: COMMON NORMALS: no JVD Resp: COMMON NORMALS: normal respiratory effort and clear to auscultation bilaterally AUSCULTATION: clear to auscultation bilaterally Cardio: COMMON NORMALS: no JVD, regular rhythm, S1 normal heart sound, S2 normal heart sound and no murmurs RHYTHM: regular rhythm HEART SOUNDS: S1 normal and S2 normal GI: COMMON NORMALS: normal to inspection, nondistended, normoactive bowel sounds, soft to palpation and non-tender PALPATION: Yes soft Extremity: COMMON NORMALS: no joint enlargement and no pedal edema Neuro: COMMON NORMALS: moves all extremities; negative for oriented x3 Skin: COMMON NORMALS: no rashes or lesions noted GENERAL SKIN EXAM: no rashes or lesions noted Data : 06/22/19 05:39 06/22/19 05:39 A&P Assessment and plan (1) Hepatic encephalopathy: Overall has improved, but today is worse than yesterday. Continue lactulose. Target 2-3 soft bowel movements per day. Ammonia this appears to have improved to 51. UA not suggestive of infection. Will reassess chest x-ray as her saturation is somewhat lower today. Perhaps some contribution from some iatrogenic hyperthyroidism with low TSH. We will check free T4, free T3. Check vitamin B12, folic acid. Replace magnesium. Family were unaware that she needed to continue on lactulose. Xkinacpm-se-hja is thinking that patient may have some underlying dementia, but is not sure, and was never formally assessed. May benefit from follow-up with neurology for more formal assessment once she is at her baseline. Abdominal ultrasound to assess with no ascites. Discontinued Rocephin. Possible history of esophageal varices. Once stable may benefit from initiation of beta-catherine. Status: Acute Code(s): K72.90 - Hepatic failure, unspecified without coma (2) Hypothyroidism: TSH is low. Will decrease levothyroxine dose to 12.5 mcg. Check free T4, free T3. Follow-up TSH level in 3 weeks. Status: Acute Code(s): E03.9 - Hypothyroidism, unspecified (3) Diastolic congestive heart failure: With trace pedal edema. Otherwise is not in decompensation. She denies any shortness of breath, does not have any orthopnea. Saturating well on room air. Monitor for any further fluid overload. Lasix for now on hold. Status: Acute Code(s): I50.30 - Unspecified diastolic (congestive) heart failure (4) Smoking addiction: Encourage cessation. Nicotine patch was ordered for cravings. Status: Acute Code(s): F17.200 - Nicotine dependence, unspecified, uncomplicated Additional A&P Information Conjunctival injections with hyperemia: Resolved. Was started on eyedrops with ciprofloxacin She recently had cataract surgery as well. Attestations Medical Necessity Statement*: Continue admission for assessment management of acute encephalopathy, suspected hepatic encephalopathy, assess additional causes. Coding Level of Care Code Acute Water Plumber for [facility] Diagnoses Hepatic encephalopathy K72.90 Hypothyroidism E03.9 Diastolic congestive heart failure I50.30 Smoking addiction F17.200
[2019-06-22 12:38] LABS: Free T4 Free Thyroxine 1.32 ng/dL (0.82-1.77); T3 Free 2.4 PG/ML (2.0-4.4)
[2019-06-22 12:42] LABS: Folate Level 12.1 ng/mL (4.8-37.3)
[2019-06-22 13:40] LABS: Vitamin B12 1024 pg/mL (232-1245)
[2019-06-22 17:02] LABS: Glucose Point of Care 223 mg/dL (70-110)
[2019-06-22] MEDS: latanoprost 0.005% Op Soln 2.5 mL Btl 1 DROP EYE-BOTH (21:33)
[2019-06-22 21:37] LABS: Glucose Point of Care 121 mg/dL (70-110)
[2019-06-23] VITALS: BP 123/70; PULSE 81; RESP 18; TEMP 36.5; O2SAT 95
[2019-06-23 04:00] VITALS: BP 123/72; PULSE 80; RESP 16; TEMP 36.8; O2SAT 95
[2019-06-23 05:05] LABS: Basophils % 0.4 %; Eosinophils # 0.1 10^3/uL (0.0-0.8); Eosinophils % 2.7 %; Hemoglobin 13.3 g/dL (11.5-15.3); Lymphocytes # 1.1 10^3/uL (0.8-4.8); Lymphocytes % 21.6 %; Mean Corpuscular HGB Conc 35.9 g/dL (30.0-36.0); Mean Corpuscular Hemoglobin 34.1 pg (28.0-34.0); Mean Corpuscular Volume 94.9 fL (81-99); Mean Platelet Volume 10.9 fL (7.4-10.4); Monocytes # 0.5 10^3/uL (0.2-0.9); Monocytes % 9.2 %; Neutrophils # 3.5 10^3/uL (1.8-7.7); Neutrophils % 65.9 %; Nucleated Red Blood Cells % 0 %; Platelet Count 79 10^3/cmm (130-400); Red Cell Distribution Width 13.9 % (12.1-15.1); White Blood Count 5.2 10^3/uL (4.0-10.0)
[2019-06-23 05:39] LABS: Alanine Aminotransferase 20 U/L (0-33); Albumin Level 2.9 g/dL (3.5-5.2); Alkaline Phosphatase 88 IU/L (35-105); Anion Gap 13.8 (5-19); Aspartate Amino Transferase 52 U/L (0-32); Blood Urea Nitrogen 6 mg/dL (8-23); Calcium 8.9 mg/dL (8.5-10.5); Carbon Dioxide 22 mmol/L (22-29); Chloride 98 mmol/L (98-107); Globulin 3.4 g/dL (1.3-4.6); Glomerular Filtration Rate 125.4 mL/min (90-130); Glucose 111 mg/dL (74-106); Sodium 131 mmol/L (136-145); Total Bilirubin 3.3 mg/dL (0.15-1.2); Total Protein 6.3 g/dL (6.6-8.7)
[2019-06-23 05:40] LABS: Ammonia 50 umol/L (11-51)
[2019-06-23 05:46] LABS: Potassium 2.8 mmol/L (3.5-5.1)
[2019-06-23 06:00] VITALS: BP 110/64; PULSE 74; RESP 16; TEMP 36.7; O2SAT 93
[2019-06-23 06:58] LABS: Glucose Point of Care 103 mg/dL (70-110)
[2019-06-23] MEDS: brimonidine 0.2% Op Soln 5 mL Btl 1 DROP EYE-BOTH (09:27)
[2019-06-23] MEDS: levothyroxine 25 mcg Tablet 12.5 MCG PO (09:29)
[2019-06-23] MEDS: lisinopril 10 mg Tablet PO (09:29)
[2019-06-23] MEDS: nicotine 21 mg Patch 1 PATCH TRANSDERMA (09:31)
[2019-06-23] MEDS: lactulose oral liq 20 gm/30 mL UDC PO (09:36)
[2019-06-23 11:26] LABS: Glucose Point of Care 57 mg/dL (70-110)
[2019-06-23 11:27] VITALS: BP 103/65; PULSE 74; RESP 20; TEMP 36.7; O2SAT 93
[2019-06-23 11:48] LABS: Glucose Point of Care 111 mg/dL (70-110)
--- NOTE | 2019-06-23 12:50 | PM.DCS ---
Discharge Providers Date of Admission: 06/20/19 20:57 Date of Discharge: 06/23/19 Attending Provider at Admission: Freddy Frost MD Attending Provider at Discharge: Bishop Clark Diagnoses at Discharge Discharge Diagnosis (1) Hepatic encephalopathy: Status: Acute (2) Hypothyroidism: Status: Acute (3) Diastolic congestive heart failure: Status: Acute (4) Smoking addiction: Status: Acute Reason for Visit Reason for Visit: Reason For Visit: Confused Hospital Course Hospital Course: 59-year-old lady with history of liver cirrhosis, diastolic congestive heart failure, recurrent hepatic encephalopathy, anxiety, smoking addiction was admitted for assessment of management of acute encephalopathy after noted to be confused by her family. It appears to her not aware that she should continue taking lactulose. Found to be hyperammonemic on presentation. Started on lactulose, rifaximin. Abdominal ultrasound did not show any ascites. Discussed with her and her family that she needs to continue lactulose daily with target 2-3 soft bowel movements per day. Of note TSH is 0.04. Perhaps contributing to some more chronic underlying memory problems. [id number]-[id number]-bjv is concerned whether she may have some underlying dementia. At this time her levothyroxine dose is decreased. Please follow-up TSH. She was assessed for possible underlying infection, but no suspicious findings on UA, chest x-ray, or other symptoms noted. CT head was unremarkable on presentation. We will refer her for assessment by neurology for possible underlying dementia. Blood glucose also noted low at this morning, down to 55, without any insulin. Improving with snacks. Does not have known history of diabetes. Will request for A1c. Please follow-up resolved. Will also request for glucometer and test strips for home use. Discussed with [id number]-[id number] to assess blood glucose in case of changes in mental status as hypoglycemia may be contributing. Please continue to work towards smoking cessation. Physical Exam Const: COMMON NORMALS: no apparent distress; negative for oriented x3 OTHER: More alert. Oriented to person and place. Not year. HENMT: COMMON NORMALS: oropharynx normal Neck/C-Spine: COMMON NORMALS: no JVD Resp: COMMON NORMALS: normal respiratory effort and clear to auscultation bilaterally AUSCULTATION: clear to auscultation bilaterally Cardio: COMMON NORMALS: no JVD, regular rhythm, S1 normal heart sound, S2 normal heart sound and no murmurs RHYTHM: regular rhythm HEART SOUNDS: S1 normal and S2 normal GI: COMMON NORMALS: normal to inspection, nondistended, normoactive bowel sounds, soft to palpation and non-tender PALPATION: Yes soft Extremity: COMMON NORMALS: no joint enlargement and no pedal edema Neuro: COMMON NORMALS: moves all extremities; negative for oriented x3 Skin: COMMON NORMALS: no rashes or lesions noted GENERAL SKIN EXAM: no rashes or lesions noted Discharge Data Data Completed and Pending: Completed Studies During Hospitalization Category Date Time Status CT head wo con* 7 0450 Stat Cat Scan 06/20/19 15:32 Completed XR KUB [id number] Rout ine Exams 06/20/19 22:24 Completed XR chest 1V jeni ble [id number] Routine Exams 06/22/19 11:23 Completed US abdomen limite d [id number] Routine Ultrasound 06/21/19 13:41 Completed Labs from last 24 hours 06/23/19 06/23/19 06/23/19 11:34 10:57 06:55 WBC RBC Hgb Hct MCV MCH MCHC RDW Plt Count MPV Neut % (Auto) Lymph % (Auto) Harmon % (Auto) Eos % (Auto) Baso % (Auto) Neut # (Auto) Lymph # (Auto) Harmon # (Auto) Eos # (Auto) Baso # (Auto) Nucleated RBC % (a uto) Nucleated RBCs # Sodium Potassium Chloride Carbon Dioxide Anion Gap BUN Creatinine GFR Calculation Glucose POC Glucose 111 57 103 Calcium Total Bilirubin AST ALT Alkaline Phosphata se Ammonia Total Protein Albumin Globulin Vitamin B12 06/23/19 06/23/19 06/23/19 04:53 04:53 04:53 WBC 5.2 RBC 3.90 L Hgb 13.3 Hct 37.0 MCV 94.9 MCH 34.1 H MCHC 35.9 RDW 13.9 Plt Count 79 L MPV 10.9 H Neut % (Auto) 65.9 Lymph % (Auto) 21.6 Harmon % (Auto) 9.2 Eos % (Auto) 2.7 Baso % (Auto) 0.4 Neut # (Auto) 3.5 Lymph # (Auto) 1.1 Harmon # (Auto) 0.5 Eos # (Auto) 0.1 Baso # (Auto) 0.0 Nucleated RBC % (a uto) 0 Nucleated RBCs # 0.0 Sodium 131 L Potassium 2.8 L* Chloride 98 Carbon Dioxide 22 Anion Gap 13.8 BUN 6 L Creatinine 0.5 GFR Calculation 125.4 Glucose 111 H POC Glucose Calcium 8.9 Total Bilirubin 3.3 H AST 52 H ALT 20 Alkaline Phosphata se 88 Ammonia 50 Total Protein 6.3 L D Albumin 2.9 L Globulin 3.4 Vitamin B12 06/22/19 06/22/19 06/22/19 21:33 16:58 06:15 WBC RBC Hgb Hct MCV MCH MCHC RDW Plt Count MPV Neut % (Auto) Lymph % (Auto) Harmon % (Auto) Eos % (Auto) Baso % (Auto) Neut # (Auto) Lymph # (Auto) Harmon # (Auto) Eos # (Auto) Baso # (Auto) Nucleated RBC % (a uto) Nucleated RBCs # Sodium Potassium Chloride Carbon Dioxide Anion Gap BUN Creatinine GFR Calculation Glucose POC Glucose 121 223 Calcium Total Bilirubin AST ALT Alkaline Phosphata se Ammonia Total Protein Albumin Globulin Vitamin B12 1024 Vitals: Last Vital Signs Temp 98.0 F 06/23/19 11:27 Pulse 74 06/23/19 11:27 Resp 20 H 06/23/19 11:27 BP 103/65 06/23/19 11:27 Pulse Ox 93 06/23/19 11:27 Discharge Plan Discharge Patient Disposition: Home, Self-Care Condition: Stable Prescriptions: New lisinopril 10 mg Tablet 10 mg PO DAILY Qty: 30 RF: 0 nicotine 21 mg/24 hr Patch 24 Hour 1 patch transdermal DAILY Qty: 30 RF: 0 Slow-Mag 71.5 mg tablet,delayed release (DR/EC) 71.5 mg PO DAILY Qty: 30 RF: 0 Continued potassium chloride 20 mEq Tablet Extended Release 20 meq PO QID Qty: 0 RF: 0 Changed levothyroxine 25 mcg Tablet 12.5 mcg PO DAILY Qty: 0 RF: 0 chlorthalidone 25 mg Tablet 25 mg PO DAILY PRN (Reason: Edema) Qty: 0 RF: 0 Other Ambulatory Orders: Basic Metabolic Panel (Routine) Timeframe: 3 Days Facility: [facility] - Location: Lab - Main Lab Ordered By: Bishop Clark Thyroid Stimulating Hormone (Routine) Timeframe: 3 Weeks Facility: [facility] - Location: Lab - Main Lab Ordered By: Bishop Clark Referrals: Any, neurology [Other] - 1 month (Possible dementia) [facility] [Provider Group] - 1 week (Recent cataract surgery, glaucoma) Katherine Wolf FNP-C [Family Provider] - 4-7 days Discharge Diet: Cardiac Activity Restrictions/Additional Instructions: Please continue lactulose, adjust dosing to achieve at least 2-3 soft bowel movements per day to keep ammonia level low, prevent encephalopathy. Please stop smoking. Discharge Attestations Time Spent in Discharge Care*: greater than 30 min Quality Metrics Clinical Quality Measures During this hospital stay, did patient experience: None Coding Level of Care Code Acute Environmental Sustainability Manager for [facility] Exam Problem Focused Diagnoses Hepatic encephalopathy K72.90 Hypothyroidism E03.9 Diastolic congestive heart failure I50.30 Smoking addiction F17.200
[2019-06-23 14:37] VITALS: BP 103/65; PULSE 74; RESP 20; TEMP 36.7; O2SAT 93
--- NOTE | 2019-06-23 15:38 | PC.NURSE ---
Discharge Discharge information given per physician's orders. Patient's [id number]-[id number] verbalized understanding of the discharge information and did not have any further questions.
--- NOTE | 2019-06-23 15:47 | PC.NURSE ---
Peripheral IV in right AC removed before DC.
[2019-06-23 15:58] LABS: Estmated Average Glucose 77; Hemoglobin A1C 4.3 % (4.0-6.0)
== END 2019-06-23 15:40 | disposition home or self-care (01) | DRG 441 ==
LOC: ER 21:16 → MEDSURG 21:20
PROVIDERS: Family Medicine; Admitting Provider Internal Medicine; Emergency Provider Emergency Medicine; Family Provider Nurse Practitioner Family; Visit Provider Internal Medicine
DX: K72.00 Acute and subacute hepatic failure without coma (principal); I81 Portal vein thrombosis; I50.31 Acute diastolic (congestive) heart failure; E03.9 Hypothyroidism, unspecified; K59.00 Constipation, unspecified; K74.60 Unspecified cirrhosis of liver; F17.200 Nicotine dependence, unspecified, uncomplicated; I25.10 Atherosclerotic heart disease of native coronary artery without angina pectoris; Z88.2 Allergy status to sulfonamides; Z79.899 Other long term (current) drug therapy
CPT/HCPCS: 12345; 36415; 36416; 70450; 71045; 74018; 76705; 80053; 80307; 81001; 82140; 82607; 82746; 82962; 83036; 83735; 84439; 84443; 84481; 85025; 85610; 85730; 93005; 96365; 99283; A9270; J0696; J3475; J3480

== ENCOUNTER 2019-06-24 10:17 | Emergency (ER) | payer MEDICAID, SELFPAY ==
[2019-06-24] VITALS (9 sets, daily range): BP systolic 104–131; BP diastolic 53–101; PULSE 73–80; RESP 16–21; TEMP 37.4; O2SAT 85–98; BMI 34.7
--- NOTE | 2019-06-24 10:18 | CT_ITS ---
WS: [id number] CT HEAD NONCONTRAST HISTORY: Symptoms of Acute Stroke TECHNIQUE: Contiguous axial imaging performed through the brain in 2.5 mm imaging. Bone and soft tiss ue windows. Sagittal and coronal reformats reviewed. All CT scans at [facility] use at ast one of these dose optimization techniques: automated exposure control; mA and/or kV adjustment pe r patient size (includes targeted exams where dose is matched to clinical indication); or iterative r econstruction. DLP: 744.42 mGy-cm. COMPARISON: 06/20/2019 No acute intracranial hemorrhage, midline shift or mass effect. Mild bilateral symmetric atrophy is out of proportion to age but similar to prior studies. No prior infarcts. Mild microvascular ischemic disease. Ventricles: Normal size with no hydrocephalus. No inferior displacement of the cerebellar tonsils. Paranasal sinuses: Mild mucoperiosteal thickening in the ethmoid air cells. No air-fluid levels withi n the sinus cavities. Mastoid air cells: Well pneumatized. Cerumen in the external auditory canals bilaterally. Calvarium and scalp: Skull is intact with no soft tissue edema or swelling. Notified Alverto Powell DO at 06/24/2019 10:[address]/CT head wo con* [id number] IMPRESSION: 1. No acute intracranial hemorrhage or edema. 2. Cerebral atrophy, slightly out of proportion to age but similar to prior st fantaies.
--- NOTE | 2019-06-24 10:18 | ECG_ITS ---
Measurements Intervals [place] Rate: 78 P: 17 MN: 181 QRS: 57 QRSD: 112 T: 54 QT: 466 QTc: 531 SINUS RHYTHM POSSIBLE ANTERIOR MYOCARDIAL INFARCTION , OF INDETERMINATE AGE [30 ms Q WAVE IN V3/V4, OR R < 0.2 mV IN V4] Compared to ECG 06/20/2019 15:25:59 No significant changes Electronically Signed On 06-24-2019 16:19:17 EDITING INTERN by Munir Guerrero M.D. [email or web address]
--- NOTE | 2019-06-24 10:25 | W.ED.NEUROSD ---
HPI - Neuro Symptoms/Deficit General: Chief Complaint: Neuro Symptoms/Deficit Stated Complaint: Stroke/Seizure Time Seen by Provider: 06/24/19 10:25 History of Present Illness: HPI Narrative: 59-year-old female presents emergency room via EMS. Her granddaughter takes care of her she was last known well last night around 7 PM went to bed's morning she got up she had wet the bed overnight and she did not seem herself but she was able to ambulate and get around she went up the stairs went to the restroom came back down and was sitting and after about 15 minutes began having a tonic-clonic seizure. Afterwards she was nonresponsive she was seen by EMS they thought the had seen some seizure activity as well and gave her Ativan. She is nonresponsive here appeared to initially be postictal some of it may be the effect of the Ativan dose she received in route. Review of Systems Narrative: Unable to obtain due to postictal state and Ativan that was given prehospital. Patient family denies recent fever she was discharged from the hospital yesterday [facility] PFSH: Statuses (acute, chronic, etc) shown below reflect problem list status as previously entered and may not be historically accurate Medical History Anxiety (Acute) Diastolic congestive heart failure (Acute) Esophageal varices (Acute) Glaucoma (Acute) Hepatic encephalopathy (Acute) Hypertension (Acute) Hypokalemia (Acute) Liver cirrhosis (Acute) Portal hypertension (Acute) PVT (portal vein thrombosis) (Acute) Smoking addiction (Acute) Splenomegaly (Acute) Surgical History History of cataract surgery (Acute) History of removal of pigmented skin lesion (Acute) Family History Other CAD (coronary artery disease) Hypertension Social History Smoking and tobacco status: current every day smoker cigarettes Packs smoked per day: 1 Alcohol intake: never Caregiver/support person: Yes Lives independently: No Household members: family Physical Exam Const: GENERAL APPEARANCE: other (Nonresponsive) ORIENTATION/CONSCIOUSNESS: Yes obtunded HENMT: COMMON NORMALS: normocephalic, head/scalp atraumatic, hearing grossly normal bilaterally, external ears normal, EAC's normal, TM's normal bilaterally, nasal mucous membranes and turbinates normal, moist oral mucous membranes and oropharynx normal HEAD & SCALP: normocephalic and atraumatic NOSE: nasal mucous membranes and turbinates normal EXTERNAL EAR: Yes external ears normal EXTERNAL AUDITORY CANAL: EAC's normal TYMPANIC MEMBRANE: TM's normal bilaterally Eye: COMMON NORMALS: no scleral icterus OTHER: Pupils distorted with significant distortion of the right eye from a previous cataract surgery left eye slightly responsive Neck/C-Spine: COMMON NORMALS: full ROM, no lymphadenopathy, supple and no JVD Lymph: LYMPHATIC: no lymphadenopathy noted and no lymphedema noted Resp: COMMON NORMALS: normal respiratory effort, no retractions, no use of accessory muscles and clear to auscultation bilaterally AUSCULTATION: clear to auscultation bilaterally Cardio: COMMON NORMALS: no JVD, regular rate, regular rhythm and no murmurs RATE: regular rate RHYTHM: regular rhythm GI: COMMON NORMALS: soft to palpation and no hepatosplenomegaly AUSCULTATION: Yes normoactive bowel sounds PALPATION: Yes soft, No tender, No guarding and Yes no hepatosplenomegaly Extremity: COMMON NORMALS: normal to inspection, normal capillary refill, no clubbing, cyanosis or edema, no calf tenderness and no pedal edema Skin: COMMON NORMALS: no rashes or lesions noted GENERAL SKIN EXAM: no rashes or lesions noted Course ED course: Patient transferred to [facility] at patient family request. While waiting for transfer patient had another seizure. She was loaded on Keppra and given another dose of Ativan. Vital Signs: Vital signs: Vital Signs Temperature 99.4 F 06/24/19 10:24 Pulse Rate 73 06/24/19 14:50 Respiratory Rate 21 H 06/24/19 14:50 Blood Pressure 104/53 06/24/19 14:50 Pulse Oximetry 96 06/24/19 14:50 MDM - Neuro Symptoms/Deficit Lab Data: Labs: Lab Results 06/24/19 06/24/19 06/24/19 Range/Units 10:38 10:39 10:39 WBC 4.9 (4.0-10.0) 10^3/ uL RBC 4.27 (4.1-5.3) 10^6/u L Hgb 14.3 (11.5-15.3) g/dL Hct 41.5 (37.0-47.0) % MCV 97.2 (81-99) fL MCH 33.5 (28.0-34.0) pg MCHC 34.5 (30.0-36.0) g/dL RDW 14.2 (12.1-15.1) % Plt Count 85 L (130-400) 10^3/c mm MPV 10.4 (7.4-10.4) fL Neut % (Auto) 58.8 % Lymph % (Auto) 27.4 % Mckean % (Auto) 11.1 % Eos % (Auto) 2.1 % Baso % (Auto) 0.4 % Neut # (Auto) 2.9 (1.8-7.7) 10^3/u L Lymph # (Auto) 1.3 (0.8-4.8) 10^3/u L Mckean # (Auto) 0.5 (0.2-0.9) 10^3/u L Eos # (Auto) 0.1 (0.0-0.8) 10^3/u L Baso # (Auto) 0.0 (0.0-0.1) 10^3/u L Nucleated RBC % (a uto) 0 % Nucleated RBCs # 0.0 /100WBC PT 19.60 H (10.5-13.3) SECO NDS INR 1.60 H (0.8-1.2) APTT 38.0 H (23.9-36.7) SECO NDS Specimen Type Arterial Sample Site Radial, left ABG pH 7.48 H (7.35-7.45) ABG pCO2 31.8 L (35-45) mmHg ABG pO2 60.5 L (80.0-100.0) mmH g ABG HCO3 23.6 (22-26) mmol/L ABG O2 Saturation 93.3 ABG Base Excess 0.8 (-2.0-2.0) mmol/ L Stas Test Pos A-a O2 Gradient 48.2 H (5-10) mmHg Hematocrit 44.9 (37-47) % Hgb O2 Saturation 91.8 L (95-100) % Carboxyhemoglobin 1.7 (0.4-20.1) %THgb Methemoglobin 0.0 L (0.4-1.5) % Total Hemoglobin 14.6 (12-16) g/dL Sodium 133.0 (131-143) mmol/L Potassium 3.1 L (3.5-5.0) mmol/L Glucose 91.0 (70-115) mg/dL Ionized Calcium 1.3 (1.1-1.4) mmol/L O2 Delivery Device Room air FiO2 21.0 % Almond Blancher Operator ID [email or web address] Chloride (98-107) mmol/L Carbon Dioxide (22-29) mmol/L Anion Gap (5-19) BUN (8-23) mg/dL Creatinine (0.5-0.9) mg/dL GFR Calculation (90-130) mL/min Calcium (8.5-10.5) mg/dL Total Bilirubin (0.15-1.2) mg/dL AST (0-32) U/L ALT (0-33) U/L Alkaline Phosphata se (35-105) IU/L Ammonia (11-51) umol/L Troponin T Baselin e (0-10) ng/mL Troponin T 120 Min point [place] (0-10) ng/mL Delta Troponin T (0-10) ABS# Total Protein (6.6-8.7) g/dL Albumin (3.5-5.2) g/dL Globulin (1.3-4.6) g/dL Lipase (13-60) U/L Urine Color (Yellow) Urine Appearance (CLEAR) Urine pH (5-7) Ur Specific Gravit y (1.005-1.030) Urine Protein (Negative) Urine Glucose (UA) (Normal) Urine Ketones (Negative) Urine Occult Blood (Negative) Urine Nitrate (Negative) Urine Bilirubin (NEGATIVE) Urine Urobilinogen (Negative) mg/dL Ur Leukocyte Lori ase (Negative) Urine RBC (0-2) /hpf Urine WBC (0-5) /hpf Ur Squamous Epith Cells (0-5) Urine Bacteria (NONE) Urine Mucus Urine Opiates Scre en (Negative) ng/mL Ur Barbiturates Sc reen (Negative) ng/mL Ur Phencyclidine S crn (Negative) ng/mL Ur Amphetamines Sc reen (Negative) ng/mL U Benzodiazepines Scrn (Negative) ng/mL Urine Cocaine Scre en (Negative) ng/mL U Marijuana (THC) Screen (Negative) ng/mL Influenza Type A A g (Negative) POC Influenza B Ag (Negative) 06/24/19 06/24/19 06/24/19 Range/Units 10:39 10:39 10:39 WBC (4.0-10.0) 10^3/ uL RBC (4.1-5.3) 10^6/u L Hgb (11.5-15.3) g/dL Hct (37.0-47.0) % MCV (81-99) fL MCH (28.0-34.0) pg MCHC (30.0-36.0) g/dL RDW (12.1-15.1) % Plt Count (130-400) 10^3/c mm MPV (7.4-10.4) fL Neut % (Auto) % Lymph % (Auto) % Mckean % (Auto) % Eos % (Auto) % Baso % (Auto) % Neut # (Auto) (1.8-7.7) 10^3/u L Lymph # (Auto) (0.8-4.8) 10^3/u L Mckean # (Auto) (0.2-0.9) 10^3/u L Eos # (Auto) (0.0-0.8) 10^3/u L Baso # (Auto) (0.0-0.1) 10^3/u L Nucleated RBC % (a uto) % Nucleated RBCs # /100WBC PT (10.5-13.3) SECO NDS INR (0.8-1.2) APTT (23.9-36.7) SECO NDS Specimen Type Sample Site ABG pH (7.35-7.45) ABG pCO2 (35-45) mmHg ABG pO2 (80.0-100.0) mmH g ABG HCO3 (22-26) mmol/L ABG O2 Saturation ABG Base Excess (-2.0-2.0) mmol/ L Stas Test A-a O2 Gradient (5-10) mmHg Hematocrit (37-47) % Hgb O2 Saturation (95-100) % Carboxyhemoglobin (0.4-20.1) %THgb Methemoglobin (0.4-1.5) % Total Hemoglobin (12-16) g/dL Sodium 133 L (131-143) mmol/L Potassium 3.3 L (3.5-5.0) mmol/L Glucose 104 (70-115) mg/dL Ionized Calcium (1.1-1.4) mmol/L O2 Delivery Device FiO2 % Almond Blancher Operator ID Chloride 101 (98-107) mmol/L Carbon Dioxide 21 L (22-29) mmol/L Anion Gap 14.3 (5-19) BUN 8 (8-23) mg/dL Creatinine 0.6 (0.5-0.9) mg/dL GFR Calculation 101.6 (90-130) mL/min Calcium 9.2 (8.5-10.5) mg/dL Total Bilirubin 4.3 H (0.15-1.2) mg/dL AST 49 H (0-32) U/L ALT 18 (0-33) U/L Alkaline Phosphata se 88 (35-105) IU/L Ammonia 50 (11-51) umol/L Troponin T Baselin e 17 H (0-10) ng/mL Troponin T 120 Min point [place] (0-10) ng/mL Delta Troponin T (0-10) ABS# Total Protein 6.5 L (6.6-8.7) g/dL Albumin 2.7 L (3.5-5.2) g/dL Globulin 3.8 (1.3-4.6) g/dL Lipase 91 H (13-60) U/L Urine Color (Yellow) Urine Appearance (CLEAR) Urine pH (5-7) Ur Specific Gravit y (1.005-1.030) Urine Protein (Negative) Urine Glucose (UA) (Normal) Urine Ketones (Negative) Urine Occult Blood (Negative) Urine Nitrate (Negative) Urine Bilirubin (NEGATIVE) Urine Urobilinogen (Negative) mg/dL Ur Leukocyte Lori ase (Negative) Urine RBC (0-2) /hpf Urine WBC (0-5) /hpf Ur Squamous Epith Cells (0-5) Urine Bacteria (NONE) Urine Mucus Urine Opiates Scre en (Negative) ng/mL Ur Barbiturates Sc reen (Negative) ng/mL Ur Phencyclidine S crn (Negative) ng/mL Ur Amphetamines Sc reen (Negative) ng/mL U Benzodiazepines Scrn (Negative) ng/mL Urine Cocaine Scre en (Negative) ng/mL U Marijuana (THC) Screen (Negative) ng/mL Influenza Type A A g (Negative) POC Influenza B Ag (Negative) 06/24/19 06/24/19 06/24/19 Range/Units 11:00 11:02 11:02 WBC (4.0-10.0) 10^3/ uL RBC (4.1-5.3) 10^6/u L Hgb (11.5-15.3) g/dL Hct (37.0-47.0) % MCV (81-99) fL MCH (28.0-34.0) pg MCHC (30.0-36.0) g/dL RDW (12.1-15.1) % Plt Count (130-400) 10^3/c mm MPV (7.4-10.4) fL Neut % (Auto) % Lymph % (Auto) % Mckean % (Auto) % Eos % (Auto) % Baso % (Auto) % Neut # (Auto) (1.8-7.7) 10^3/u L Lymph # (Auto) (0.8-4.8) 10^3/u L Mckean # (Auto) (0.2-0.9) 10^3/u L Eos # (Auto) (0.0-0.8) 10^3/u L Baso # (Auto) (0.0-0.1) 10^3/u L Nucleated RBC % (a uto) % Nucleated RBCs # /100WBC PT (10.5-13.3) SECO NDS INR (0.8-1.2) APTT (23.9-36.7) SECO NDS Specimen Type Sample Site ABG pH (7.35-7.45) ABG pCO2 (35-45) mmHg ABG pO2 (80.0-100.0) mmH g ABG HCO3 (22-26) mmol/L ABG O2 Saturation ABG Base Excess (-2.0-2.0) mmol/ L Stas Test A-a O2 Gradient (5-10) mmHg Hematocrit (37-47) % Hgb O2 Saturation (95-100) % Carboxyhemoglobin (0.4-20.1) %THgb Methemoglobin (0.4-1.5) % Total Hemoglobin (12-16) g/dL Sodium (131-143) mmol/L Potassium (3.5-5.0) mmol/L Glucose (70-115) mg/dL Ionized Calcium (1.1-1.4) mmol/L O2 Delivery Device FiO2 % Almond Blancher Operator ID Chloride (98-107) mmol/L Carbon Dioxide (22-29) mmol/L Anion Gap (5-19) BUN (8-23) mg/dL Creatinine (0.5-0.9) mg/dL GFR Calculation (90-130) mL/min Calcium (8.5-10.5) mg/dL Total Bilirubin (0.15-1.2) mg/dL AST (0-32) U/L ALT (0-33) U/L Alkaline Phosphata se (35-105) IU/L Ammonia (11-51) umol/L Troponin T Baselin e (0-10) ng/mL Troponin T 120 Min point [place] (0-10) ng/mL Delta Troponin T (0-10) ABS# Total Protein (6.6-8.7) g/dL Albumin (3.5-5.2) g/dL Globulin (1.3-4.6) g/dL Lipase (13-60) U/L Urine Color Yellow (Yellow) Urine Appearance Clear (CLEAR) Urine pH 6.0 (5-7) Ur Specific Gravit y 1.020 (1.005-1.030) Urine Protein Trace (Negative) Urine Glucose (UA) Norm (Normal) Urine Ketones Negative (Negative) Urine Occult Blood 3+ H (Negative) Urine Nitrate Negative (Negative) Urine Bilirubin 1+ H (NEGATIVE) Urine Urobilinogen 8 H (Negative) mg/dL Ur Leukocyte Lori ase Negative (Negative) Urine RBC 25-40 H (0-2) /hpf Urine WBC None (0-5) /hpf Ur Squamous Epith Cells 0-4 H (0-5) Urine Bacteria 1+ H (NONE) Urine Mucus 3+ Urine Opiates Scre en Negative (Negative) ng/mL Ur Barbiturates Sc reen Negative (Negative) ng/mL Ur Phencyclidine S crn Negative (Negative) ng/mL Ur Amphetamines Sc reen Negative (Negative) ng/mL U Benzodiazepines Scrn Negative (Negative) ng/mL Urine Cocaine Scre en Negative (Negative) ng/mL U Marijuana (THC) Screen Negative (Negative) ng/mL Influenza Type A A g Negative (Negative) POC Influenza B Ag Negative (Negative) 06/24/19 Range/Units 12:30 WBC (4.0-10.0) 10^3/ uL RBC (4.1-5.3) 10^6/u L Hgb (11.5-15.3) g/dL Hct (37.0-47.0) % MCV (81-99) fL MCH (28.0-34.0) pg MCHC (30.0-36.0) g/dL RDW (12.1-15.1) % Plt Count (130-400) 10^3/c mm MPV (7.4-10.4) fL Neut % (Auto) % Lymph % (Auto) % Mckean % (Auto) % Eos % (Auto) % Baso % (Auto) % Neut # (Auto) (1.8-7.7) 10^3/u L Lymph # (Auto) (0.8-4.8) 10^3/u L Mckean # (Auto) (0.2-0.9) 10^3/u L Eos # (Auto) (0.0-0.8) 10^3/u L Baso # (Auto) (0.0-0.1) 10^3/u L Nucleated RBC % (a uto) % Nucleated RBCs # /100WBC PT (10.5-13.3) SECO NDS INR (0.8-1.2) APTT (23.9-36.7) SECO NDS Specimen Type Sample Site ABG pH (7.35-7.45) ABG pCO2 (35-45) mmHg ABG pO2 (80.0-100.0) mmH g ABG HCO3 (22-26) mmol/L ABG O2 Saturation ABG Base Excess (-2.0-2.0) mmol/ L Stas Test A-a O2 Gradient (5-10) mmHg Hematocrit (37-47) % Hgb O2 Saturation (95-100) % Carboxyhemoglobin (0.4-20.1) %THgb Methemoglobin (0.4-1.5) % Total Hemoglobin (12-16) g/dL Sodium (131-143) mmol/L Potassium (3.5-5.0) mmol/L Glucose (70-115) mg/dL Ionized Calcium (1.1-1.4) mmol/L O2 Delivery Device FiO2 % Almond Blancher Operator ID Chloride (98-107) mmol/L Carbon Dioxide (22-29) mmol/L Anion Gap (5-19) BUN (8-23) mg/dL Creatinine (0.5-0.9) mg/dL GFR Calculation (90-130) mL/min Calcium (8.5-10.5) mg/dL Total Bilirubin (0.15-1.2) mg/dL AST (0-32) U/L ALT (0-33) U/L Alkaline Phosphata se (35-105) IU/L Ammonia (11-51) umol/L Troponin T Baselin e (0-10) ng/mL Troponin T 120 Min point [place] 16.42 H (0-10) ng/mL Delta Troponin T -0.58 L (0-10) ABS# Total Protein (6.6-8.7) g/dL Albumin (3.5-5.2) g/dL Globulin (1.3-4.6) g/dL Lipase (13-60) U/L Urine Color (Yellow) Urine Appearance (CLEAR) Urine pH (5-7) Ur Specific Gravit y (1.005-1.030) Urine Protein (Negative) Urine Glucose (UA) (Normal) Urine Ketones (Negative) Urine Occult Blood (Negative) Urine Nitrate (Negative) Urine Bilirubin (NEGATIVE) Urine Urobilinogen (Negative) mg/dL Ur Leukocyte Lori ase (Negative) Urine RBC (0-2) /hpf Urine WBC (0-5) /hpf Ur Squamous Epith Cells (0-5) Urine Bacteria (NONE) Urine Mucus Urine Opiates Scre en (Negative) ng/mL Ur Barbiturates Sc reen (Negative) ng/mL Ur Phencyclidine S crn (Negative) ng/mL Ur Amphetamines Sc reen (Negative) ng/mL U Benzodiazepines Scrn (Negative) ng/mL Urine Cocaine Scre en (Negative) ng/mL U Marijuana (THC) Screen (Negative) ng/mL Influenza Type A A g (Negative) POC Influenza B Ag (Negative) Discharge Plan Discharge Patient Disposition: Xfer Short-Term Hosp Clinical Impression: Seizure, Diastolic congestive heart failure, Hypothyroidism, Post-ictal state Condition: Stable Referrals: Katherine Wolf FNP-C [Family Provider] - Discharge Date/Time: 06/24/19 15:32 Coding Level of Care Code ED Box Annealer for Zaheer Foley
--- NOTE | 2019-06-24 10:31 | ECG_ITS ---
Measurements Intervals [place] Rate: 80 P: OK: 0 QRS: 65 QRSD: 111 T: 60 QT: 437 QTc: 505 SUPRAVENTRICULAR RHYTHM POSSIBLE ANTERIOR MYOCARDIAL INFARCTION , OF INDETERMINATE AGE [30 ms Q WAVE IN V3/V4, OR R < 0.2 mV IN V4] INTERPRETATION BASED ON A DEFAULT AGE OF 40 YEARS Compared to ECG 06/20/2019 15:25:59 Supraventricular rhythm now present Sinus rhythm no longer present Myocardial infarct finding still present Electronically Signed On 06-24-2019 16:18:59 OTOLOGIST by Munir Guerrero M.D. [id number]
[2019-06-24 10:47] LABS: Basophils % 0.4 %; Eosinophils # 0.1 10^3/uL (0.0-0.8); Eosinophils % 2.1 %; Hematocrit 41.5 % (37.0-47.0); Hemoglobin 14.3 g/dL (11.5-15.3); Lymphocytes # 1.3 10^3/uL (0.8-4.8); Lymphocytes % 27.4 %; Mean Corpuscular HGB Conc 34.5 g/dL (30.0-36.0); Mean Corpuscular Hemoglobin 33.5 pg (28.0-34.0); Mean Corpuscular Volume 97.2 fL (81-99); Mean Platelet Volume 10.4 fL (7.4-10.4); Monocytes # 0.5 10^3/uL (0.2-0.9); Monocytes % 11.1 %; Neutrophils # 2.9 10^3/uL (1.8-7.7); Neutrophils % 58.8 %; Nucleated Red Blood Cells % 0 %; Platelet Count 85 10^3/cmm (130-400); Red Blood Count 4.27 10^6/uL (4.1-5.3); Red Cell Distribution Width 14.2 % (12.1-15.1); White Blood Count 4.9 10^3/uL (4.0-10.0)
[2019-06-24 10:48] LABS: ABG PCO2 31.8 mmHg (35-45); ABG PH Result 7.48 (7.35-7.45); Alveolar-Arterial Oxygen Gradi 48.2 mmHg (5-10); Arterial Blood Gas Hematocrit 44.9 % (37-47); Base Excess ABG 0.8 mmol/L (-2.0-2.0); Blood Gas Allen Test Pos; Blood Gas Operator Identificat amh; Blood Gas Sample Site Radial, left; Blood Gas Sample Type Arterial; Carboxyhemoglobin 1.7 %THgb (0.4-20.1); HCO3 ABG 23.6 mmol/L (22-26); HGB O2 Sat 91.8 % (95-100); Ionized Calcium Level - ABG 1.3 mmol/L (1.1-1.4); Oxygen Device ROOM AIR; Oxygen Saturation ABG 93.3; PO2 ABG 60.5 mmHg (80.0-100.0); Potassium Level - ABG 3.1 mmol/L (3.5-5.0); Total Hemoglobin 14.6 g/dL (12-16)
[2019-06-24 11:01] LABS: Alanine Aminotransferase 18 U/L (0-33); Albumin Level 2.7 g/dL (3.5-5.2); Alkaline Phosphatase 88 IU/L (35-105); Anion Gap 14.3 (5-19); Aspartate Amino Transferase 49 U/L (0-32); Blood Urea Nitrogen 8 mg/dL (8-23); Calcium 9.2 mg/dL (8.5-10.5); Carbon Dioxide 21 mmol/L (22-29); Chloride 101 mmol/L (98-107); Globulin 3.8 g/dL (1.3-4.6); Glomerular Filtration Rate 101.6 mL/min (90-130); Glucose 104 mg/dL (74-106); Lipase 91 U/L (13-60); Potassium 3.3 mmol/L (3.5-5.1); Sodium 133 mmol/L (136-145); Total Bilirubin 4.3 mg/dL (0.15-1.2); Total Protein 6.5 g/dL (6.6-8.7)
[2019-06-24 11:02] LABS: Ammonia 50 umol/L (11-51)
[2019-06-24 11:03] LABS: Troponin(5th) Baseline 17 ng/mL (0-10)
[2019-06-24 11:11] LABS: Glucose Urine UA Norm (Normal); Ketones Urine Negative (Negative); Protein Urine Trace (Negative); Urine Appearance Clear (CLEAR); Urine Color Yellow (Yellow)
[2019-06-24 11:12] LABS: Add Urine Microscopic? YES; Bilirubin Urine 1+ (NEGATIVE); Blood Urine 3+ (Negative); Leukocyte Esterase Urine Negative (Negative); Nitrate Urine Negative (Negative); Urobilinogen Urine 8 mg/dL (Negative)
[2019-06-24 11:19] LABS: Add Urine Culture? Yes; Bacteria Urine 1+; Mucus Urine 3+; RBC Urine 25-40 /hpf (0-2); Squamous Epithelial Cell Urine 0-4 (0-5)
[2019-06-24 11:21] LABS: Influenza A by IFA Negative (Negative); Influenza B by IFA Negative (Negative)
[2019-06-24 11:29] LABS: Amphetamines Screen Urine Negative (Negative); Barbiturates Screen Urine Negative (Negative); Benzodiazepines Screen Urine Negative (Negative); Cocaine Screen Urine Negative (Negative); Opiate Screen Urine Negative (Negative); PCP Screen Urine Negative (Negative); THC Screen Urine Negative (Negative)
--- NOTE | 2019-06-24 12:31 | ECG_ITS ---
Measurements Intervals [place] Rate: 71 P: 38 AL: 187 QRS: 57 QRSD: 109 T: 50 QT: 485 QTc: 530 SINUS RHYTHM POSSIBLE ANTERIOR MYOCARDIAL INFARCTION , OF INDETERMINATE AGE [30 ms Q WAVE IN V3/V4, OR R < 0.2 mV IN V4] INTERPRETATION BASED ON A DEFAULT AGE OF 40 YEARS Compared to ECG 06/20/2019 15:25:59 No significant changes Electronically Signed On 06-24-2019 16:22:46 CORRECTIONAL SUPPLY SUPERVISOR by Munir Guerrero M.D. [id number] f
[2019-06-24 12:56] LABS: Troponin 5 2HR 16.42 ng/mL (0-10)
[2019-06-24 13:06] LABS: Troponin 5 2HR Delta -0.58 ABS# (0-10)
[2019-06-24] MEDS: LORazepam 2 mg/mL INJ 1 mL 1 MG IVP (15:00)
--- NOTE | 2019-06-24 15:08 | PC.NURSE ---
Family witnessed pt having 30 second seizure in which they stated that she was moaning, and her face was twitching.
== END 2019-06-24 15:32 | disposition short-term general hospital (02) ==
PROVIDERS: Emergency Provider Family Medicine; Family Provider Nurse Practitioner Family
DX: R56.9 Unspecified convulsions (principal); E03.9 Hypothyroidism, unspecified; I11.0 Hypertensive heart disease with heart failure; I50.30 Unspecified diastolic (congestive) heart failure; F17.210 Nicotine dependence, cigarettes, uncomplicated
CPT/HCPCS: 36415; 36600; 70450; 80051; 80053; 80307; 81001; 82140; 82810; 83690; 83986; 84484; 85025; 85610; 85730; 87086; 87804; 93005; 96374; 99284; J1953; J2060

== ENCOUNTER 2019-07-24 10:32 | Day surgery (SDC) | payer MEDICAID, SELFPAY ==
[2019-07-23 12:47] VITALS: BMI 32.9
[2019-07-24] VITALS (8 sets, daily range): BP systolic 130–164; BP diastolic 62–88; PULSE 71–90; RESP 16–25; TEMP 36.2–36.5; O2SAT 93–98
--- NOTE | 2019-07-24 11:48 | ANES.PREANE2 ---
Pre-Anesthetic Assessment Pre-Anesthetic Assessment: Height/Weight: Height 1.57 m Weight 78.925 kg Temp Pulse Resp BP Pulse Ox 97.7 F 71 18 130/84 98 07/24/19 11:16 07/24/19 11:16 07/24/19 11:16 07/24/19 11:16 07/24/19 11:16 Preop Diagnosis: glaucoma Proposed Procedure: Operation Date: 07/24/19 12:00 Proposed Procedures p Ahmed Glaucoma Valve/With wash out of hyphemia synechiolysis with mitomycin c(Right) - Loco Hernandez MD Familial anesthetic complications: none Was Beta Ryan taken within 24 hours: N/A Last intake: Intake Last Liquid Date 07/16/19 Last Liquid Time 22:00 Last Solid Date 07/23/19 Last Solid Time 20:00 Social: Social History: Tobacco Packs per day: 0.5 ppd Exam: Pre-Anes Outpt Exam: alert, oriented x 3, clear to auscultation bilaterally and regular rate & rhythm Airway: Cervical ROM: WNL MP: 2 Additional comments: edentulous Pulmonary: Pulmonary: None reported CV/HEM: CV/HEM: CHF : : None reported Hepatic: Hepatic: Cirrohsis Comments: unknown etiology GI: GI: None reported Metabolic: Metabolic: Thyroid Musc/skel: Musc/skel: None reported Neuropsych: Neuropsych: Seizure (on keppra (last seizure 1 month ago) - due to liver disease) Comments: Hx hepatic encephalopathy Anesthetic Plan: ASA status: 4 Anesthesia: General Risk of > 500 ml blood loss (7ml/kg in children): No PFSH Anesthesia PFSH: Social History Smoking and tobacco status: current every day smoker cigarettes Packs smoked per day: 1 Alcohol intake: never Caregiver/support person: Yes Lives independently: No Household members: family Data Anesthesia Cardiac Studies: No Data to Display
[2019-07-24] MEDS: sodium chloride 0.9% 1,000 ML 30 ML IV (12:58)
[2019-07-24 13:08] LABS: Potassium 4.1 mmol/L (3.5-5.1)
[2019-07-24] MEDS: tobramycin 40 mg/mL SDV 2mL 20 MG INJECTION (13:25)
[2019-07-24] MEDS: mitoMYcin 20 mg SDV 5 MG XX (13:30)
[2019-07-24] MEDS: triamcinolone 40 mg/mL SDV 8 MG XX (14:00)
[2019-07-24] MEDS: tobramycin-dexametha Op Susp 5 mL Btl 2 DROP EYE-RIGHT (14:11)
--- NOTE | 2019-07-24 14:17 | W.PM.OPSUD ---
Surgery/Procedure H&P Update DATE OF PROCEDURE: July 24, 2019 DATE H&P PERFORMED: 07/24/19 H&P UPDATE INFORMATION: I have examined patient prior to procedure and No changes to prior documentation PREOP DIAGNOSIS: glaucoma PRIMARY INDICATION FOR PROCEDURE: rubeotic glaucoma right eye PLANNED PROCEDURE: Operation Date: 07/24/19 12:00 Proposed Procedures p Ahmed Glaucoma Valve/With wash out of hyphemia synechiolysis with mitomycin c(Right) - Loco Hernandez MD
--- NOTE | 2019-07-24 14:18 | PM.OP ---
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 Right eye Procedure: The patient was brought to the operating table where blood pressure and cardiac monitoring devices were applied. Timeout was called and the proper patient and procedure were identified. General anesthesia was induced, a peribulbar block was given, and vital signs were stable. Betadine wash was applied to the left side of the face and sterile drapes were placed. A lid speculum was inserted and local infiltration of 1% Lidocaine was given subconjunctivally in the superior quadrants. A fornix-based conjunctival flap was dissected from the limbus superior temporally and blunt dissection was continued along the surface of the sclera posteriorly. Mitomycin-C soaked pledgets were placed under the conjunctiva in the superior temporal quadrant for 2 minutes and then removed with irrigation of the surface the eye using balanced salt solution. The Ahmed valve was primed with balanced salt solution and inserted on the surface of the sclera 10 mm posterior to the limbus. The valve was sutured in place to the sclera with 6-0 Mersilene sutures 10 mm posterior to the limbus. during the suturing the needle passed deeper than planned. The cryoprobe was used to secure the retina underlying the area of the suture passage prophylactically. A 22-gauge needle was inserted from the limbus 1 mm posterior to the cornea into the anterior chamber parallel to the iris in the 2:00 position. The tube for the valve was cut to proper length and inserted through that canal into the anterior chamber. It was properly positioned and of proper length. The tube was stabilized to the scleral surface with a [id number] 9-0 Vicryl suture. A Tutoplast patch graft was then sutured over the surface of the tube from the origin of the Ahmed valve to the limbus. This completely covered the tube in its entry in the anterior chamber. A paracentesis was placed in the limbus at 02:00 position and the peripheral anterior synechiae were opened with balanced salt solution from the cannula. a A dusting of Kenalog was placed in the anterior chamber. This revealed good flow through the Ahmed valve. The conjunctival flap was closed with interrupted 9-0 Vicryl suture. Additional local 1% Lidocaine was given and 1 mL of Vigamox was infused in the anterior chamber. The bridle suture was removed and the Betadine was washed from the face. The eye was patched with a gauze pad and Velez shield after Maxitrol ointment had been placed on the eye. The patient was awakened from anesthesia and transferred to the Recovery Room in stable condition.
--- NOTE | 2019-07-24 14:32 | SUR.PHASEI ---
1419 PT TO PACU SLEEPY HOB AT 40 DEGREES , GOOD RESP NOTED PT ON 8L MASK, 1428 PT MORE ALERT EYES WASHED PT TAKING MASK OFF , ON RA TRIAL 1429 PTON 3LNC SATS 92% QUICKLY UP TO 93% NO DISTRESS NOTED
== END 2019-07-24 15:31 | disposition home or self-care (01) ==
PROVIDERS: Family Provider Nurse Practitioner Family; PCP Family Medicine; Visit Provider Ophthalmology
PROC: (CPT 66180; principal; 2019-07-24 12:00)
PROC: (CPT 66183; 2019-07-24 12:00)
DX: H40.9 Unspecified glaucoma (principal); F17.210 Nicotine dependence, cigarettes, uncomplicated; I50.9 Heart failure, unspecified
CPT/HCPCS: 66183; 12345; 84132; C1783; J2001; J2405; J2704; J3010; J3260; J3301; J3490; J7030; J9280

== ENCOUNTER → 2019-12-23 08:09 | Outpatient (BNVA) | payer MEDICAID, SELFPAY | PROVIDERS: Family Provider Nurse Practitioner Family; PCP Family Medicine; Visit Provider Family Medicine | DX: E03.9 Hypothyroidism, unspecified (principal); I10 Essential (primary) hypertension; K72.90 Hepatic failure, unspecified without coma; K76.6 Portal hypertension; K72.00 Acute and subacute hepatic failure without coma; E87.6 Hypokalemia; R56.9 Unspecified convulsions; F41.9 Anxiety disorder, unspecified | CPT/HCPCS: 80053; 80061; 84443 ==

== ENCOUNTER → 2020-03-08 10:59 | Outpatient (BNVA) | payer SELFPAY | PROVIDERS: Family Provider Nurse Practitioner Family; PCP Family Medicine; Visit Provider Nurse Practitioner Family | DX: E03.9 Hypothyroidism, unspecified (principal); I10 Essential (primary) hypertension | CPT/HCPCS: 80053; 80061; 84439; 84443; 85025 ==

== ENCOUNTER 2020-04-05 14:43 | Emergency (ER) | payer MEDICAID, SELFPAY ==
[2020-04-05 14:49] VITALS: BP 154/96; PULSE 90; RESP 18; TEMP 36.6; O2SAT 94; BMI 30.9
--- NOTE | 2020-04-05 17:38 | ED_ITS ---
Documented by User: JANETH Webster 04/06/20 01:14 HPI - Altered Mental Status General: Chief Complaint: Altered Mental Status Stated Complaint: Confusion/Stomach Pain Time Seen by Provider: 04/05/20 17:38 History of Present Illness: HPI narrative: Patient is a 59-year-old female who comes to the ED with AMS and confusion. Patient has a past medical history of hepatic encephalopathy, seizures, liver cirrhosis, hypertension, esophageal varices, HF, hypothyroidism. Daughter is present in the ED with patient and she is the power of power hair clipper. She says that her mother has been acting confused all day today. Patient pulled her pants down and sat on a chair in the living room and urinated thinking she was in the bathroom. She has had similar problem in the past and it was due to liver cirrhosis and having high ammonia levels. Review of Systems Const: Denies: fever(s), chills or fatigue Eyes: Denies: change in vision or eye discomfort ENMT: Denies: throat pain, odynophagia, nasal discharge or nasal congestion Card: Denies: chest pain, palpitations, edema, swelling of feet/ankles, dyspnea on exertion or orthopnea Resp: Denies: dyspnea, productive cough or non-productive cough GI: Denies: abdominal pain, nausea, vomiting, diarrhea, constipation or hematochezia : Denies: flank pain, dysuria or hematuria Musc: Denies: neck pain, back pain or extremity swelling Skin/Breast: Denies: rash or new lesions Neuro: Reports: confusion; Denies: headache(s), numbness in extremities or weakness in extremities PFS ED PFSH: Medical History Anxiety Diastolic congestive heart failure Esophageal varices Glaucoma Hepatic encephalopathy Hypertension Hypokalemia Liver cirrhosis Portal hypertension PVT (portal vein thrombosis) Smoking addiction Splenomegaly Surgical History History of cataract surgery History of removal of pigmented skin lesion Family History Other CAD (coronary artery disease) Hypertension Social History Smoking and tobacco status: current every day smoker cigarettes Packs smoked per day: 1 Years cigarettes smoked: 45 Second hand smoke exposure: No Alcohol intake: never Caregiver/support person: Yes Lives independently: No Household members: family Current occupational status: disabled History of recent travel: No Current gender identity: Female Physical Exam Const: EXAM LIMITATIONS: altered mental status GENERAL APPEARANCE: cooperative and comfortable HENMT: COMMON NORMALS: normocephalic HEAD & SCALP: normocephalic MOUTH: Normal oral and palatal mucosa present THROAT: posterior oropharynx normal and uvula midline Eye: COMMON NORMALS: Equal, round and reactive pupils present CONJUNCTIVA: Yes conjunctival abnormal positive bilateral conjunctival icterus PUPIL: Yes Equal, round and reactive pupils present Neck/C-Spine: COMMON NORMALS: supple GENERAL: Yes normal visual inspection Resp: COMMON NORMALS: normal respiratory effort, No retractions, No use of accessory muscles and clear to auscultation bilaterally AUSCULTATION: clear to auscultation bilaterally Cardio: COMMON NORMALS: regular rate, regular rhythm, S1 normal heart sound present, S2 normal heart sound present, No gallops present (Cardio), No clicks present (Cardio), No murmurs present (Cardio) and Peripheral pulses 2+ throughout RATE: regular rate RHYTHM: regular rhythm HEART SOUNDS: S1 normal heart sound present and S2 normal heart sound present PERIPHERAL PULSES: Peripheral pulses 2+ throughout GI: COMMON NORMALS: Normal to inspection, nondistended, normoactive bowel sounds present, Soft to palpation, non-tender and no masses PALPATION: Yes Soft to palpation OTHER: No tenderness upon deep and light palpation all throughout abdomen. : COMMON NORMALS: Yes no CVA tenderness BLADDER/KIDNEY EXAM: Yes no CVA tenderness Back/Pelvis: COMMON NORMALS: no CVA tenderness Extremity: COMMON NORMALS: no pedal edema GENERAL: Yes normal exam except as noted and Yes clubbing (Bilaterally upper extremities) Neuro: BIANCA COMA SCALE: document GCS findings [place] coma scale eye opening: Spontaneous [place] coma scale verbal response: Confused [place] coma scale motor response: Obey commands Bianca coma scale total score: 14 COMMON NORMALS: CN's II-XII intact bilaterally, moves all extremities, no focal motor deficits and no sensory deficits noted SENSORIUM/ORIENTATION: Yes Orientation impaired (Patient knew her name but was unable to give her birthday. She was not lui) COORDINATION/BALANCE: No kqjttl-qm-gqiz test normal (Patient could n ot follow instructions to do stemwg-th-iwvr test correctly.) GAIT: Yes Normal gait present MOTOR EXAM: 5/5 motor strength present throughout COORDINATION: bosxfn-nr-hsko test abnormal (Patient could not follow instructions to do owjqcc-xg-jhbj test correctly.) OTHER: Patient is able to follow simple one-step directions. Any directions more complicated than that she struggles to comprehend and follow. Patient is able to ambulate around the room without any issues and does not appear to have any problems with balance coordination. Skin: GENERAL SKIN EXAM: dry skin Course Consultations: Consultation #1: I talked with patient's group of GI specialist at [facility] in [facility], which are the specialist patient sees. I told him about CT findings of thrombosis with occlusion of 80%. He states that they are imaging in the past as shown that same occlusion he says it is a chronic finding. I also discussed patient's mental status and other labs. He recommended that we bring patient in on observation stay here at [facility] and give IV fluids and monitor mental status. He says a lot of times these patient states pull out of it after some fluids. He was not quite sure what is causing confusion based off of the labs, but monitoring would be the best route to go. Time: 22:26 Vital Signs: Vital signs: Vital Signs Temperature 98.4 F 04/06/20 02:10 Pulse Rate 82 04/06/20 02:10 Respiratory Rate 16 04/06/20 02:10 Blood Pressure 122/76 04/06/20 02:10 Pulse Oximetry 95 04/06/20 02:10 MDM - Altered Mental Status MDM Narrative: Medical decision making narrative: Patient is a 59-year-old female with a history of hepatic encephalopathy that comes to the ED with altered mental status. I contacted patient's GI specialist to discuss patient's case and CT findings. He recommended to have patient put on obs. patient was set up for admission by Dr. Roblero. Dr. Frost came down to see patient discussed plan. They decided patient can be discharged home with follow-up with PCP in 3 to 5 days. Contact GI specialist at [facility] tomorrow morning to discuss ED visit. Return to ED precautions given. Patient and patient's daughter understood and agreed with plan. Lab Data: Attestation: I reviewed the patient's lab results. Labs: Lab Results 04/05/20 04/05/20 04/05/20 Range/Units 18:00 18:00 18:00 WBC 5.0 (4.0-10.0) 10^3/ uL RBC 5.17 (4.1-5.3) 10^6/u L Hgb 17.8 H (11.5-15.3) g/dL Hct 51.5 H (37.0-47.0) % MCV 99.6 H (81-99) fL MCH 34.4 H (28.0-34.0) pg MCHC 34.6 (30.0-36.0) g/dL RDW 14.8 (12.1-15.1) % Plt Count 86 L (130-400) 10^3/c mm MPV 10.5 H (7.4-10.4) fL Neut % (Auto) 60.9 % Lymph % (Auto) 27.8 % [place] % (Auto) 7.7 % Eos % (Auto) 3.0 % Baso % (Auto) 0.4 % Neut # (Auto) 3.07 (1.8-7.7) 10^3/u L Lymph # (Auto) 1.4 (0.8-4.8) 10^3/u L [place] # (Auto) 0.4 (0.2-0.9) 10^3/u L Eos # (Auto) 0.2 (0.0-0.8) 10^3/u L Baso # (Auto) 0.0 (0.0-0.1) 10^3/u L Nucleated RBC % (a uto) 0 % Nucleated RBCs # 0.0 /100WBC PT 18.20 H (12.1-14.9) SECO NDS INR 1.45 H (0.8-1.2) APTT 40.5 H (23.9-36.7) SECO NDS Sodium (136-145) mmol/L Potassium (3.5-5.1) mmol/L Chloride (98-107) mmol/L Carbon Dioxide (22-29) mmol/L Anion Gap (5-19) BUN (8-23) mg/dL Creatinine (0.5-0.9) mg/dL GFR Calculation (90-130) mL/min Glucose (65-115) mg/dL Calculated Osmolal ity (285-295) mOsm/k g Lactic Acid 1.6 (0.5-2.2) mmol/L Calcium (8.5-10.5) mg/dL Total Bilirubin (0.15-1.2) mg/dL AST (0-32) U/L ALT (0-33) U/L Alkaline Phosphata se (35-105) IU/L Ammonia (11-51) umol/L Total Protein (6.6-8.7) g/dL Albumin (3.5-5.2) g/dL Globulin (1.3-4.6) g/dL Lipase (13-60) U/L Urine Color (Yellow) Urine Appearance (CLEAR) Urine pH (5-7) Ur Specific Gravit y (1.005-1.030) Urine Protein (Negative) Urine Glucose (UA) (Normal) Urine Ketones (Negative) Urine Blood (Negative) Urine Nitrate (Negative) Urine Bilirubin (Negative) Urine Urobilinogen (Negative) mg/dL Ur Leukocyte Lori ase (Negative) Urine RBC (0-2) /hpf Urine WBC (0-5) /hpf Ur Squamous Epith Cells (0-5) /hpf Ur Transition Epit h Cell /hpf Ur Renal Epithelia l Cell /hpf Amorphous Sediment Urine Bacteria (NONE) /hpf 04/05/20 04/05/20 04/05/20 Range/Units 18:00 18:00 18:10 WBC (4.0-10.0) 10^3/ uL RBC (4.1-5.3) 10^6/u L Hgb (11.5-15.3) g/dL Hct (37.0-47.0) % MCV (81-99) fL MCH (28.0-34.0) pg MCHC (30.0-36.0) g/dL RDW (12.1-15.1) % Plt Count (130-400) 10^3/c mm MPV (7.4-10.4) fL Neut % (Auto) % Lymph % (Auto) % [place] % (Auto) % Eos % (Auto) % Baso % (Auto) % Neut # (Auto) (1.8-7.7) 10^3/u L Lymph # (Auto) (0.8-4.8) 10^3/u L [place] # (Auto) (0.2-0.9) 10^3/u L Eos # (Auto) (0.0-0.8) 10^3/u L Baso # (Auto) (0.0-0.1) 10^3/u L Nucleated RBC % (a uto) % Nucleated RBCs # /100WBC PT (12.1-14.9) SECO NDS INR (0.8-1.2) APTT (23.9-36.7) SECO NDS Sodium 137 (136-145) mmol/L Potassium 3.5 (3.5-5.1) mmol/L Chloride 105 (98-107) mmol/L Carbon Dioxide 20 L (22-29) mmol/L Anion Gap 15.5 (5-19) BUN 9 (8-23) mg/dL Creatinine 0.6 (0.5-0.9) mg/dL GFR Calculation 101.6 (90-130) mL/min Glucose 86 (65-115) mg/dL Calculated Osmolal ity 282 L (285-295) mOsm/k g Lactic Acid (0.5-2.2) mmol/L Calcium 9.6 (8.5-10.5) mg/dL Total Bilirubin 4.5 H (0.15-1.2) mg/dL AST 30 (0-32) U/L ALT 14 (0-33) U/L Alkaline Phosphata se 138 H (35-105) IU/L Ammonia 46 (11-51) umol/L Total Protein 7.8 (6.6-8.7) g/dL Albumin 3.2 L (3.5-5.2) g/dL Globulin 4.6 (1.3-4.6) g/dL Lipase 58 (13-60) U/L Urine Color Dark yellow (Yellow) Urine Appearance Cloudy (CLEAR) Urine pH 5 (5-7) Ur Specific Gravit y 1.005 (1.005-1.030) Urine Protein Neg (Negative) Urine Glucose (UA) Norm (Normal) Urine Ketones 1+ H (Negative) Urine Blood 3+ H (Negative) Urine Nitrate Negative (Negative) Urine Bilirubin 2+ H (Negative) Urine Urobilinogen 8 H (Negative) mg/dL Ur Leukocyte Lori ase 1+ H (Negative) Urine RBC 5-10 H (0-2) /hpf Urine WBC 0-4 H (0-5) /hpf Ur Squamous Epith Cells 80-100 H (0-5) /hpf Ur Transition Epit h Cell 10-15 /hpf Ur Renal Epithelia l Cell 0 /hpf Amorphous Sediment Not Reportable Urine Bacteria 1+ H (NONE) /hpf Imaging Data^: CT Head: Attestation: I personally reviewed and interpreted this imaging study as follows: Radiologist's impression: [address] [address] [address] Scan Report Signed Patient: Patrice Phillips Unit #: [id number] : 1960 Age/Sex: 59 / F ADM Date: 04/05/20 Loc: ER Room/Bed: Attending Dr: Ordering Provider/Ordering MD: Jerome Kidd Date of Service: 04/05/20 Procedure(s): CT head wo con* [id number] Accession Number(s): [id number] Report Number: [id number] PROCEDURE INFORMATION: Exam: CT Head Without Contrast Exam date and time: 04/05/2020 6:10 PM Age: 59 years old Clinical indication: Altered mental status/memory loss; Additional info: Confusion/ams TECHNIQUE: Imaging protocol: Computed tomography of the head without contrast. Radiation optimization: All CT scans at this facility use at least one of these dose optimization techniques: automated exposure control; mA and/or kV adjustment per patient size (includes targeted exams where dose is matched to clinical indication); or iterative reconstruction. COMPARISON: CT head wo con* [id number] 06/24/2019 10:35 AM RADIATION DOSE METRICS: Total DLP (mGy-cm): 740.52 FINDINGS: Brain: No evidence of active or acute intracranial pathologic process, hemorrhage, or trauma. Cerebral and cerebellar atrophy greater than that anticipated for patient's chronological age but stable since last evaluation. No mass effect. No midline shift. No visible generalized cerebral edema or demyelination. Cerebral ventricles: No ventriculomegaly. Bones/joints: Unremarkable. No acute fracture. Paranasal sinuses: Visualized sinuses are unremarkable. No fluid levels. Mastoid air cells: Visualized mastoid air cells are well aerated. Orbital cavity: Evidence of interval surgical intervention right globe. Potential old right globe choroid detachment. Soft tissues: Unremarkable. CT/CT head wo con* [id number] IMPRESSION: No evidence of active or acute intracranial pathologic process, hemorrhage, or trauma. Radiation Dose CTDIVOL = (mGy): DLP = 740.52 (mGy-cm) Dictated By: Dustin Jiang Signed By: Dustin Jiang Signed Date/Time: 04/05/201833 DD/ 32 CT Abd/Pel: Attestation: I personally reviewed and interpreted this imaging study as follows: Radiologist's impression: [facility] [address] [place] [address] CT Scan Report Signed Patient: Patrice Phillips Unit #: [id number] : 1960 Age/Sex: 59 / F ADM Date: 04/05/20 Loc: ER Room/Bed: Attending Dr: Ordering Provider/Ordering MD: Jerome Kidd Date of Service: 04/05/20 Procedure(s): CT chest abd pel w con* Accession Number(s): [id number] Report Number: [id number] PROCEDURE INFORMATION: Exam: CT Chest With Contrast Exam date and time: 04/05/2020 7:57 PM Age: 59 years old Clinical indication: Abnormal findings; Abnormal lab test; Elevated liver enzymes; Other: SOB; Prior surgery; Surgery type: Gb; Additional info: Confusion, elevated total alicia TECHNIQUE: Imaging protocol: Computed tomography of the chest with intravenous contrast. Radiation optimization: All CT scans at this facility use at least one of these dose optimization techniques: automated exposure control; mA and/or kV adjustment per patient size (includes targeted exams where dose is matched to clinical indication); or iterative reconstruction. Contrast material: OMNI 300; Contrast volume: 95 ml; Contrast route: INTRAVENOUS (IV); COMPARISON: No relevant prior studies available. RADIATION DOSE METRICS: Total DLP (mGy-cm): 1568.11 FINDINGS: Thyroid: Enlargement of one or both thyroid glands: Non-emergent correlation with ultrasound and/or serum lab values is recommended to rule out goiter. Lungs: Unremarkable. No consolidation. No masses. Pleural space: Unremarkable. No pneumothorax. No pleural effusion. Heart: Mild calcified coronary artery disease. Aorta: Unremarkable. No aortic aneurysm. Great vessels off aortic arch: Calcification of the thoracic aorta and/or great vessels consistent with atherosclerotic vessel disease. Lymph nodes: Calcified left hilar nodes and/or mediastinal nodes and/or lung granulomas consistent with old granulomatous disease. Bones/joints: Unremarkable. No acute fracture. Soft tissues: Unremarkable. IMPRESSION: 1. Enlargement of one or both thyroid glands: Non-emergent correlation with ultrasound and/or serum lab values is recommended to rule out goiter. 2. Mild calcified coronary artery disease. PROCEDURE INFORMATION: Exam: CT Abdomen And Pelvis With Contrast Exam date and time: 04/05/2020 7:57 PM Age: 59 years old Clinical indication: Abnormal findings; Abnormal lab test; Elevated liver enzymes; Other: SOB; Prior surgery; Surgery type: Gb; Additional info: Confusion, elevated total alicia TECHNIQUE: Imaging protocol: Computed tomography of the abdomen and pelvis with intravenous contrast. Radiation optimization: All CT scans at this facility use at least one of these dose optimization techniques: automated exposure control; mA and/or kV adjustment per patient size (includes targeted exams where dose is matched to clinical indication); or iterative reconstruction. Contrast material: OMNI 300; Contrast volume: 95 ml; Contrast route: INTRAVENOUS (IV); COMPARISON: No relevant prior studies available. RADIATION DOSE METRICS: Total DLP (mGy-cm): 1568.11 FINDINGS: Liver: Hepatic cirrhosis morphology with nodular contour and/or caudate lobe enlargement and/or left lobe enlargement. Gallbladder and bile ducts: Stable cholecystectomy. Dilatation of the intra-and extrahepatic biliary tree which can be normal following cholecystectomy. Pancreas: Normal. No ductal dilation. Spleen: 13.8 x 13.5 cm mild splenomegaly. Adrenal glands: Normal. No mass. Kidneys and ureters: Normal. No hydronephrosis. Stomach and bowel: Unremarkable. No obstruction. No mucosal thickening. Appendix: Normal appendix. Intraperitoneal space: Unremarkable. No free air. No significant fluid collection. Vasculature: Large varices in the posteromedial cardia with splenorenal shunts. 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 18 mm splenic vein consistent with severe portal hypertension. Lymph nodes: Unremarkable. No enlarged lymph nodes. Urinary bladder: Unremarkable as visualized. Reproductive: Status post hysterectomy. Bones/joints: Moderate to severe multilevel spine degenerative changes including degenerative disc disease, spondylosis and facet degenerative changes. Soft tissues: Unremarkable. Other findings: Possible 2.[address]/CT chest abd pel w con* IMPRESSION: 1. 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 2. Prominent cirrhosis with severe portal hypertension, splenomegaly and large varices. Radiation Dose CTDIVOL = (mGy): DLP = 1568.11 1568.11 (mGy-cm) Dictated By: Darwin Mcclelland MD Signed By: Darwin Mcclelland MD Signed Date/Time: 2052 DD/ 51 Discharge Plan Discharge Patient Disposition: Home Clinical Impression: Hepatic encephalopathy Condition: Stable Prescriptions: No Action lactulose 10 gram/15 mL solution See Rx Instructions .ROUTE .COMPLEX Qty: 1350 RF: 0 spironolactone 25 mg tablet See Rx Instructions .ROUTE .COMPLEX Qty: 30 RF: 2 potassium chloride 20 mEq tablet,ER particles/crystals 20 meq PO DAILY Qty: 90 RF: 2 furosemide 40 mg tablet See Rx Instructions .ROUTE .COMPLEX Qty: 30 RF: 2 levetiracetam [Keppra] 500 mg tablet 500 mg PO BID Qty: 60 RF: 2 brimonidine 0.2 % drops 1 drop ophthalmic (eye) TID Qty: 10 RF: 3 prednisolone acetate 1 % drops,suspension 1 drop ophthalmic (eye) BID Qty: 10 RF: 3 levothyroxine 50 mcg tablet 25 mcg PO DAILY Qty: 30 RF: 0 nicotine 21 mg/24 hr Patch 24 Hour 1 patch transdermal DAILY Qty: 30 RF: 0 magnesium 250 mg Tablet 250 mg PO DAILY RF: 0 multivitamin Tablet 1 tab PO DAILY RF: 0 TobraDex 0.3-0.1 % ointment 1 applic ophthalmic (eye) Q6H Qty: 3.5 RF: 3 Discharge Orders: Discharge Order (Routine); Ordered 04/06/20 Ordered By: Jerome Kidd Referrals: Natalie Lugo MD [Primary Care Provider] - Discharge Diet: Regular Discharge Activity: Increase activity as tolerated Patient Instructions: Hepatic Encephalopathy (ED) Activity Restrictions/Additional Instructions: Follow-up with medical provider as directed in 3-5 days. Continue taking all home medications as prescribed. Return to the ER or your medical provider if condition worsens. Please read and understand discharge instructions. If any questions, please ask. Coding Level of Care Code ED President [employer] Fwd Exam Comprehensive Documented by User: Davi Roblero MD, [facility] 04/06/20 12:33 HPI - Altered Mental Status General: Chief Complaint: Altered Mental Status Stated Complaint: Confusion/Stomach Pain Time Seen by Provider: 04/05/20 17:38 [facility] ED PFSH: Medical History Anxiety Diastolic congestive heart failure Esophageal varices Glaucoma Hepatic encephalopathy Hypertension Hypokalemia Liver cirrhosis Portal hypertension PVT (portal vein thrombosis) Smoking addiction Splenomegaly Surgical History History of cataract surgery History of removal of pigmented skin lesion Family History Other CAD (coronary artery disease) Hypertension Social History Smoking and tobacco status: current every day smoker cigarettes Packs smoked per day: 1 Years cigarettes smoked: 45 Second hand smoke exposure: No Alcohol intake: never Caregiver/support person: Yes Lives independently: No Household members: family Current occupational status: disabled History of recent travel: No Current gender identity: Female Course Vital Signs: Vital signs: Vital Signs Temperature 98.4 F 04/06/20 02:10 Pulse Rate 82 04/06/20 02:10 Respiratory Rate 16 04/06/20 02:10 Blood Pressure 122/76 04/06/20 02:10 Pulse Oximetry 95 04/06/20 02:10 MDM - Altered Mental Status MDM Narrative: Medical decision making narrative: 59-year-old female patient with liver cirrhosis and portal vein thrombosis. She presents to the emergency department with altered mental status. When the patient's dental laboratory assistant wa s contacted he said the portal vein thrombosis is not new and was not concerned about it. After discussion with the family they decided the patient will be discharged home and not admitted to the hospital. Lab Data: Labs: Lab Results 04/05/20 04/05/20 04/05/20 Range/Units 18:00 18:00 18:00 WBC 5.0 (4.0-10.0) 10^3/ uL RBC 5.17 (4.1-5.3) 10^6/u L Hgb 17.8 H (11.5-15.3) g/dL Hct 51.5 H (37.0-47.0) % MCV 99.6 H (81-99) fL MCH 34.4 H (28.0-34.0) pg MCHC 34.6 (30.0-36.0) g/dL RDW 14.8 (12.1-15.1) % Plt Count 86 L (130-400) 10^3/c mm MPV 10.5 H (7.4-10.4) fL Neut % (Auto) 60.9 % Lymph % (Auto) 27.8 % [place] % (Auto) 7.7 % Eos % (Auto) 3.0 % Baso % (Auto) 0.4 % Neut # (Auto) 3.07 (1.8-7.7) 10^3/u L Lymph # (Auto) 1.4 (0.8-4.8) 10^3/u L [place] # (Auto) 0.4 (0.2-0.9) 10^3/u L Eos # (Auto) 0.2 (0.0-0.8) 10^3/u L Baso # (Auto) 0.0 (0.0-0.1) 10^3/u L Nucleated RBC % (a uto) 0 % Nucleated RBCs # 0.0 /100WBC PT 18.20 H (12.1-14.9) SECO NDS INR 1.45 H (0.8-1.2) APTT 40.5 H (23.9-36.7) SECO NDS Sodium (136-145) mmol/L Potassium (3.5-5.1) mmol/L Chloride (98-107) mmol/L Carbon Dioxide (22-29) mmol/L Anion Gap (5-19) BUN (8-23) mg/dL Creatinine (0.5-0.9) mg/dL GFR Calculation (90-130) mL/min Glucose (65-115) mg/dL Calculated Osmolal ity (285-295) mOsm/k g Lactic Acid 1.6 (0.5-2.2) mmol/L Calcium (8.5-10.5) mg/dL Total Bilirubin (0.15-1.2) mg/dL AST (0-32) U/L ALT (0-33) U/L Alkaline Phosphata se (35-105) IU/L Ammonia (11-51) umol/L Total Protein (6.6-8.7) g/dL Albumin (3.5-5.2) g/dL Globulin (1.3-4.6) g/dL Lipase (13-60) U/L Urine Color (Yellow) Urine Appearance (CLEAR) Urine pH (5-7) Ur Specific Gravit y (1.005-1.030) Urine Protein (Negative) Urine Glucose (UA) (Normal) Urine Ketones (Negative) Urine Blood (Negative) Urine Nitrate (Negative) Urine Bilirubin (Negative) Urine Urobilinogen (Negative) mg/dL Ur Leukocyte Lori ase (Negative) Urine RBC (0-2) /hpf Urine WBC (0-5) /hpf Ur Squamous Epith Cells (0-5) /hpf Ur Transition Epit h Cell /hpf Ur Renal Epithelia l Cell /hpf Amorphous Sediment Urine Bacteria (NONE) /hpf 04/05/20 04/05/20 04/05/20 Range/Units 18:00 18:00 18:10 WBC (4.0-10.0) 10^3/ uL RBC (4.1-5.3) 10^6/u L Hgb (11.5-15.3) g/dL Hct (37.0-47.0) % MCV (81-99) fL MCH (28.0-34.0) pg MCHC (30.0-36.0) g/dL RDW (12.1-15.1) % Plt Count (130-400) 10^3/c mm MPV (7.4-10.4) fL Neut % (Auto) % Lymph % (Auto) % [place] % (Auto) % Eos % (Auto) % Baso % (Auto) % Neut # (Auto) (1.8-7.7) 10^3/u L Lymph # (Auto) (0.8-4.8) 10^3/u L [place] # (Auto) (0.2-0.9) 10^3/u L Eos # (Auto) (0.0-0.8) 10^3/u L Baso # (Auto) (0.0-0.1) 10^3/u L Nucleated RBC % (a uto) % Nucleated RBCs # /100WBC PT (12.1-14.9) SECO NDS INR (0.8-1.2) APTT (23.9-36.7) SECO NDS Sodium 137 (136-145) mmol/L Potassium 3.5 (3.5-5.1) mmol/L Chloride 105 (98-107) mmol/L Carbon Dioxide 20 L (22-29) mmol/L Anion Gap 15.5 (5-19) BUN 9 (8-23) mg/dL Creatinine 0.6 (0.5-0.9) mg/dL GFR Calculation 101.6 (90-130) mL/min Glucose 86 (65-115) mg/dL Calculated Osmolal ity 282 L (285-295) mOsm/k g Lactic Acid (0.5-2.2) mmol/L Calcium 9.6 (8.5-10.5) mg/dL Total Bilirubin 4.5 H (0.15-1.2) mg/dL AST 30 (0-32) U/L ALT 14 (0-33) U/L Alkaline Phosphata se 138 H (35-105) IU/L Ammonia 46 (11-51) umol/L Total Protein 7.8 (6.6-8.7) g/dL Albumin 3.2 L (3.5-5.2) g/dL Globulin 4.6 (1.3-4.6) g/dL Lipase 58 (13-60) U/L Urine Color Dark yellow (Yellow) Urine Appearance Cloudy (CLEAR) Urine pH 5 (5-7) Ur Specific Gravit y 1.005 (1.005-1.030) Urine Protein Neg (Negative) Urine Glucose (UA) Norm (Normal) Urine Ketones 1+ H (Negative) Urine Blood 3+ H (Negative) Urine Nitrate Negative (Negative) Urine Bilirubin 2+ H (Negative) Urine Urobilinogen 8 H (Negative) mg/dL Ur Leukocyte Lori ase 1+ H (Negative) Urine RBC 5-10 H (0-2) /hpf Urine WBC 0-4 H (0-5) /hpf Ur Squamous Epith Cells 80-100 H (0-5) /hpf Ur Transition Epit h Cell 10-15 /hpf Ur Renal Epithelia l Cell 0 /hpf Amorphous Sediment Not Reportable Urine Bacteria 1+ H (NONE) /hpf Discharge Plan Discharge Patient Disposition: Home Clinical Impression: Hepatic encephalopathy Condition: Stable Prescriptions: No Action lactulose 10 gram/15 mL solution See Rx Instructions .ROUTE .COMPLEX Qty: 1350 RF: 0 spironolactone 25 mg tablet See Rx Instructions .ROUTE .COMPLEX Qty: 30 RF: 2 potassium chloride 20 mEq tablet,ER particles/crystals 20 meq PO DAILY Qty: 90 RF: 2 furosemide 40 mg tablet See Rx Instructions .ROUTE .COMPLEX Qty: 30 RF: 2 levetiracetam [Keppra] 500 mg tablet 500 mg PO BID Qty: 60 RF: 2 brimonidine 0.2 % drops 1 drop ophthalmic (eye) TID Qty: 10 RF: 3 prednisolone acetate 1 % drops,suspension 1 drop ophthalmic (eye) BID Qty: 10 RF: 3 levothyroxine 50 mcg tablet 25 mcg PO DAILY Qty: 30 RF: 0 nicotine 21 mg/24 hr Patch 24 Hour 1 patch transdermal DAILY Qty: 30 RF: 0 magnesium 250 mg Tablet 250 mg PO DAILY RF: 0 multivitamin Tablet 1 tab PO DAILY RF: 0 TobraDex 0.3-0.1 % ointment 1 applic ophthalmic (eye) Q6H Qty: 3.5 RF: 3 Discharge Orders: Discharge Order (Routine); Ordered 04/06/20 Ordered By: Jerome Kidd Referrals: Natalie Lugo MD [Primary Care Provider] - Discharge Diet: Regular Discharge Activity: Increase activity as tolerated Patient Instructions: Hepatic Encephalopathy (ED) Activity Restrictions/Additional Instructions: Follow-up with medical provider as directed in 3-5 days. Continue taking all home medications as prescribed. Return to the ER or your medical provider if condition worsens. Please read and understand discharge instructions. If any questions, please ask. Coding Level of Care Code ED [employer] [facility] Exam Comprehensive
[2020-04-05 18:25] VITALS: BP 135/74; PULSE 77; RESP 13; O2SAT 95
[2020-04-05 18:31] LABS: Basophils % 0.4 %; Eosinophils # 0.2 10^3/uL (0.0-0.8); Hematocrit 51.5 % (37.0-47.0); Hemoglobin 17.8 g/dL (11.5-15.3); Lymphocytes # 1.4 10^3/uL (0.8-4.8); Lymphocytes % 27.8 %; Mean Corpuscular HGB Conc 34.6 g/dL (30.0-36.0); Mean Corpuscular Hemoglobin 34.4 pg (28.0-34.0); Mean Corpuscular Volume 99.6 fL (81-99); Mean Platelet Volume 10.5 fL (7.4-10.4); Monocytes # 0.4 10^3/uL (0.2-0.9); Monocytes % 7.7 %; Neutrophils # 3.07 10^3/uL (1.8-7.7); Neutrophils % 60.9 %; Nucleated Red Blood Cells % 0 %; Platelet Count 86 10^3/cmm (130-400); Red Blood Count 5.17 10^6/uL (4.1-5.3); Red Cell Distribution Width 14.8 % (12.1-15.1)
[2020-04-05 18:47] LABS: INR 1.45 (0.8-1.2)
[2020-04-05 18:48] LABS: Partial Thromboplastin Time 40.5 SECONDS (23.9-36.7)
[2020-04-05 18:49] LABS: Glucose Urine UA Norm (Normal); Protein Urine Neg (Negative); Specific Gravity, Urine 1.005 (1.005-1.030); Urine Appearance Cloudy (CLEAR); Urine Color Dark Yellow (Yellow); pH Urine 5 (5-7)
[2020-04-05 18:50] LABS: Bilirubin Urine 2+ (Negative); Blood Urine 3+ (Negative); Ketones Urine 1+ (Negative); Leukocyte Esterase Urine 1+ (Negative); Nitrate Urine Negative (Negative); Urobilinogen Urine 8 mg/dL (Negative)
[2020-04-05 18:52] LABS: Add Urine Culture? No; Bacteria Urine 1+ /hpf; Renal Epithelial Cells Urine 0 /hpf; Squamous Epithelial Cell Urine 80-100 /hpf (0-5); WBC Urine 0-4 /hpf (0-5)
[2020-04-05 18:59] LABS: Lactic Sepsis W/Reflex 1.6 mmol/L (0.5-2.2)
[2020-04-05 19:00] LABS: Ammonia 46 umol/L (11-51)
[2020-04-05 19:03] LABS: Alanine Aminotransferase 14 U/L (0-33); Albumin Level 3.2 g/dL (3.5-5.2); Alkaline Phosphatase 138 IU/L (35-105); Anion Gap 15.5 (5-19); Aspartate Amino Transferase 30 U/L (0-32); Blood Urea Nitrogen 9 mg/dL (8-23); Calcium 9.6 mg/dL (8.5-10.5); Carbon Dioxide 20 mmol/L (22-29); Chloride 105 mmol/L (98-107); Globulin 4.6 g/dL (1.3-4.6); Glomerular Filtration Rate 101.6 mL/min (90-130); Glucose 86 mg/dL (65-115); Lipase 58 U/L (13-60); Osmolality Calculated 282 mOsm/kg (285-295); Potassium 3.5 mmol/L (3.5-5.1); Sodium 137 mmol/L (136-145); Total Bilirubin 4.5 mg/dL (0.15-1.2); Total Protein 7.8 g/dL (6.6-8.7)
--- NOTE | 2020-04-05 19:47 | CTR_ITS ---
PROCEDURE INFORMATION: Exam: CT Chest With Contrast Exam date and time: 04/05/2020 7:57 PM Age: 59 years old Clinical indication: Abnormal findings; Abnormal lab test; Elevated liver enzymes; Other: SOB; Prior surgery; Surgery type: Gb; Additional info: Confusion, elevated total alicia TECHNIQUE: Imaging protocol: Computed tomography of the chest with intravenous contrast. Radiation optimization: All CT scans at this facility use at least one of these dose optimization techniques: automated exposure control; mA and/or kV adjustment per patient size (includes targeted exams where dose is matched to clinical indication); or iterative reconstruction. Contrast material: OMNI 300; Contrast volume: 95 ml; Contrast route: INTRAVENOUS (IV); COMPARISON: No relevant prior studies available. RADIATION DOSE METRICS: Total DLP (mGy-cm): 1568.11 FINDINGS: Thyroid: Enlargement of one or both thyroid glands: Non-emergent correlation with ultrasound and/or serum lab values is recommended to rule out goiter. Lungs: Unremarkable. No consolidation. No masses. Pleural space: Unremarkable. No pneumothorax. No pleural effusion. Heart: Mild calcified coronary artery disease. Aorta: Unremarkable. No aortic aneurysm. Great vessels off aortic arch: Calcification of the thoracic aorta and/or great vessels consistent with atherosclerotic vessel disease. Lymph nodes: Calcified left hilar nodes and/or mediastinal nodes and/or lung granulomas consistent with old granulomatous disease. Bones/joints: Unremarkable. No acute fracture. Soft tissues: Unremarkable. IMPRESSION: 1. Enlargement of one or both thyroid glands: Non-emergent correlation with ultrasound and/or serum lab values is recommended to rule out goiter. 2. Mild calcified coronary artery disease. PROCEDURE INFORMATION: Exam: CT Abdomen And Pelvis With Contrast Exam date and time: 04/05/2020 7:57 PM Age: 59 years old Clinical indication: Abnormal findings; Abnormal lab test; Elevated liver enzymes; Other: SOB; Prior surgery; Surgery type: Gb; Additional info: Confusion, elevated total alicia TECHNIQUE: Imaging protocol: Computed tomography of the abdomen and pelvis with intravenous contrast. Radiation optimization: All CT scans at this facility use at least one of these dose optimization techniques: automated exposure control; mA and/or kV adjustment per patient size (includes targeted exams where dose is matched to clinical indication); or iterative reconstruction. Contrast material: OMNI 300; Contrast volume: 95 ml; Contrast route: INTRAVENOUS (IV); COMPARISON: No relevant prior studies available. RADIATION DOSE METRICS: Total DLP (mGy-cm): 1568.11 FINDINGS: Liver: Hepatic cirrhosis morphology with nodular contour and/or caudate lobe enlargement and/or left lobe enlargement. Gallbladder and bile ducts: Stable cholecystectomy. Dilatation of the intra-and extrahepatic biliary tree which can be normal following cholecystectomy. Pancreas: Normal. No ductal dilation. Spleen: 13.8 x 13.5 cm mild splenomegaly. Adrenal glands: Normal. No mass. Kidneys and ureters: Normal. No hydronephrosis. Stomach and bowel: Unremarkable. No obstruction. No mucosal thickening. Appendix: Normal appendix. Intraperitoneal space: Unremarkable. No free air. No significant fluid collection. Vasculature: Large varices in the posteromedial cardia with splenorenal shunts. 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 18 mm splenic vein consistent with severe portal hypertension. Lymph nodes: Unremarkable. No enlarged lymph nodes. Urinary bladder: Unremarkable as visualized. Reproductive: Status post hysterectomy. Bones/joints: Moderate to severe multilevel spine degenerative changes including degenerative disc disease, spondylosis and facet degenerative changes. Soft tissues: Unremarkable. Other findings: Possible 2.[address]/CT chest abd pel w con* IMPRESSION: 1. 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 2. Prominent cirrhosis with severe portal hypertension, splenomegaly and large varices. Radiation Dose CTDIVOL = (mGy): DLP = 1568.11~1568.11 (mGy-cm)
[2020-04-05 20:00] VITALS: BP 121/84; PULSE 84; RESP 16; O2SAT 93
[2020-04-05] MEDS: iohexol 300 mg/mL 100 mL Btl IV (20:06)
[2020-04-05 21:00] VITALS: BP 130/95; PULSE 94; RESP 16; O2SAT 92
[2020-04-05] MEDS: enoxaparin 120 mg/0.8 mL Syringe SUBCUT (21:41)
[2020-04-05 22:00] VITALS: BP 132/67; PULSE 96; RESP 16; O2SAT 92
[2020-04-05 23:00] VITALS: BP 126/92; PULSE 88; RESP 16; O2SAT 92
--- NOTE | 2020-04-06 00:24 | PM.HP ---
Providers/Chief Complaint Primary Care Provider: Natalie Lugo MD Chief Complaint: Confusion/Stomach Pain History of Present Illness Patrice Phillips is a 59 year old female Medications/Allergies Home Medications Medication Instructions Recorded Confirmed Last Taken Type nicotine 1 patch TRANSDERMAL DAILY #30 ea 06/23/19 04/05/20 07/23/19 10:00 Rx magnesium 250 mg PO DAILY 07/23/19 04/05/20 07/23/19 10:00 History multivitamin 1 tab PO DAILY 07/23/19 04/05/20 07/23/19 10:00 History tobramycin-dexamethasone [TobraDex] 1 applic OPHTHALMIC (EYE) Q6H #3.5 07/24/19 04/05/20 Unknown Rx gm brimonidine 0.2 % eye drops 1 drop OPHTHALMIC (EYE) TID #10 ml 12/23/19 04/05/20 Unknown Rx levothyroxine 50 mcg tablet 25 mcg PO DAILY #30 tab 12/23/19 04/05/20 Unknown Rx prednisolone acetate 1 % eye 1 drop OPHTHALMIC (EYE) BID #10 ml 12/23/19 04/05/20 04/05/20 Rx drops,suspension furosemide 40 mg tablet See Rx Instructions .ROUTE 03/08/20 04/05/20 04/04/20 Rx .COMPLEX #30 tab lactulose 10 gram/15 mL oral See Rx Instructions .ROUTE 03/08/20 04/05/20 04/05/20 Rx solution .COMPLEX #1350 ml levetiracetam 500 mg tablet 500 mg PO BID #60 tab 03/08/20 04/05/20 04/05/20 Rx potassium chloride 20 mEq 20 meq PO DAILY #90 each 03/08/20 04/05/20 Unknown Rx tablet,extended release(part/cryst) spironolactone 25 mg tablet See Rx Instructions .ROUTE 03/08/20 04/05/20 Unknown Rx .COMPLEX #30 tab Allergies Allergy/AdvReac Type Severity Reaction Status Date / Time Sulfa (Sulfonamide Allergy Unknown unknown Verified 04/05/20 14:54 Antibiotics) PFSH Acute PFSH: Medical History Anxiety Diastolic congestive heart failure Esophageal varices Glaucoma Hepatic encephalopathy Hypertension Hypokalemia Liver cirrhosis Portal hypertension PVT (portal vein thrombosis) Smoking addiction Splenomegaly Surgical History History of cataract surgery History of removal of pigmented skin lesion Family History Other CAD (coronary artery disease) Hypertension Social History Smoking and tobacco status: current every day smoker cigarettes Packs smoked per day: 1 Years cigarettes smoked: 45 Second hand smoke exposure: No Alcohol intake: never Caregiver/support person: Yes Lives independently: No Household members: family Current occupational status: disabled History of recent travel: No Current gender identity: Female Vitals/I&O/Wt Last Vital Signs Temp 97.9 F 04/05/20 14:49 Pulse 88 04/05/20 23:00 Resp 16 04/05/20 23:00 BP 126/92 04/05/20 23:00 Pulse Ox 92 04/05/20 23:00 Weight last 48 hrs Weight 79.379 kg Data : 04/05/20 18:00 04/05/20 18:00 Coding Level of Care Code Acute [employer] for Zaheer Foley
[2020-04-06] MEDS: sodium chloride 0.9% 500 ML IV (01:15)
[2020-04-06 01:25] VITALS: BP 133/81; PULSE 88; RESP 16; O2SAT 96
[2020-04-06 02:10] VITALS: BP 122/76; PULSE 82; RESP 16; TEMP 36.9; O2SAT 95
== END 2020-04-06 02:12 | disposition home or self-care (01) ==
PROVIDERS: Family Medicine; Emergency Provider Physician Assistant; PCP Family Medicine
DX: K72.90 Hepatic failure, unspecified without coma (principal); Z79.52 Long term (current) use of systemic steroids; K74.60 Unspecified cirrhosis of liver; I81 Portal vein thrombosis; K76.6 Portal hypertension; I11.0 Hypertensive heart disease with heart failure; I50.30 Unspecified diastolic (congestive) heart failure; F17.210 Nicotine dependence, cigarettes, uncomplicated
CPT/HCPCS: 12345; 70450; 71260; 74177; 80053; 81001; 82140; 83605; 83690; 85025; 85610; 85730; 96372; 99283; J1650; J7040; Q9967

== ENCOUNTER 2021-01-17 11:16 | Inpatient (IN) | payer MEDICAID, SELFPAY ==
[2021-01-17] VITALS (8 sets, daily range): BP systolic 115–157; BP diastolic 75–88; PULSE 77–90; RESP 16–18; TEMP 36.7; O2SAT 91–98; BMI 35.4
--- NOTE | 2021-01-17 11:33 | XR_ITS ---
WS: [id number] Exam: XR chest 1V portable [id number] Date/Time of Exam: 01/17/2021 11:44 AM Reason For Exam: cough Comparison 06/22/2019 and 03/30/2018 The lungs are fully expanded and clear. Chronic interstitial changes noted. Normal cardiomediastinal silhouette. No pleural effusions. Regional bony elements are unremarkable. XR/XR chest 1V portable [id number] IMPRESSION: 1. Chronic coarsening and nodularity of interstitial markings stable in appeara nce. 2. No acute cardiopulmonary finding.
--- NOTE | 2021-01-17 11:33 | ECG_ITS ---
[facility] ED Test Date: 2021-01-17 Pat Name: Patrice Phillips Department: Room: Gender: Female Associate Field Service Engineer: : 1960 Requested By: Helen Montoya Order Number: [id number] Reading MD: Thelma Tiwari M.D. Measurements Intervals [place] Rate: 77 P: NV: QRS: 13 QRSD: 110 T: 35 QT: 424 QTc: 481 Interpretive Statements SUPRAVENTRICULAR RHYTHM, POSSIBLY SINUS LOW QRS VOLTAGE IN PRECORDIAL LEADS [QRS DEFLECTION < 1.0 mV IN CHEST LEADS] SEPTAL MYOCARDIAL INFARCTION [40+ ms Q WAVE IN V1/V2], OF INDETERMINATE AGE Compared to ECG 06/24/2019 13:02:19 Supraventricular rhythm now present Low QRS voltage now present Sinus rhythm no longer present Myocardial infarct finding still present Electronically Signed On 01-17-2021 20:11:39 CDT by Thelma Tiwari M.D. [id number]
--- NOTE | 2021-01-17 11:33 | CT_ITS ---
WS: [id number] CT HEAD TECHNIQUE: Noncontrast CT of the head obtained from the skullbase to the vertex. CLINICAL INFORMATION: ams COMPARISON: April 05, 2020 DLP: 785.[address] scans at [facility] use at least one of these dose optimization techniques: automat ed exposure control; mA and/or kV adjustment per patient size (includes targeted exams where dose is matched to clinical indication); or iterative reconstruction. FINDINGS: No evidence of intracranial hemorrhage or mass effect. Ventricular system and basal cisterns are herr nt. Mild small vessel changes with moderate parenchymal volume loss worse in the frontal lobes bilate rally. No extra-axial fluid collections. No evidence of mass or mass effect. Normal bagley-white differ entiation. Paranasal sinuses and mastoid air cells are well aerated. .Normal visualized soft tissues. Postoperat oren changes right orbit. CT/CT head wo con* [id number] IMPRESSION: 1. No evidence of intracranial hemorrhage or mass effect. 2. Mild small vessel changes with moderate parenchymal volume loss worse in t he frontal lobes bilaterally. 3. No acute intracranial findings.
--- NOTE | 2021-01-17 12:02 | ED_ITS ---
HPI - General Adult General: Chief complaint: Altered Mental Status Stated complaint: AMS, L FLANK PAIN Time Seen by Provider: 01/17/21 11:25 History of Present Illness: HPI narrative: CC: AMS HPI: [60]yo patient w/ hx of cirrhosis c/b hepatic encephalopathy on lactulose 15mg TID, renal colic BIBA for altered mental status. Patient lives at home with granddaugther who notice patient has been altered in the last few days at home and called EMS. En route, POC glucose wnl. In the ED, is AAOX1 (self only) and reports L sided flank pain and dysuria. Patient denies n/v/f/c/cp/sob/abdpain/hematuria/diarrhea/hematochezia. Onset: unknown Duration: ongoing, unclear duration Location: home Severity: severe Review of Systems Narrative: Constitutional: No fever, no chills. HEENT: No vision changes CV: No chest pain, no palpitations PULM: +cough, No dyspnea. GI: No abdominal pain, no N/V/D. + L flank pain : +dysuria MSKEL: No muscle pain SKIN: No new rashes, no lesions. NEURO: No headache, no focal weakness. HEME: No visible bruises PSYCH: Normal mood PFSH ED PFSH: Medical History (Updated 01/17/21 @ 15:21 by Jozef Pabon MD) Anxiety Diastolic congestive heart failure Esophageal varices Glaucoma Hepatic encephalopathy Hypertension Hypokalemia Liver cirrhosis Portal hypertension PVT (portal vein thrombosis) Smoking addiction Splenomegaly Surgical History History of cataract surgery History of removal of pigmented skin lesion Family History Other CAD (coronary artery disease) Hypertension Social History Smoking and tobacco status: current every day smoker cigarettes Packs smoked per day: 1 Years cigarettes smoked: 45 Second hand smoke exposure: No Alcohol intake: never Caregiver/support person: Yes Lives independently: No Household members: family Current occupational status: disabled History of recent travel: No Current gender identity: Female Physical Exam Narrative: EXAM NARRATIVE: Head: Atraumatic Eyes: PERRL, conjunctiva without injection ENT: Mucous membrane moist NECK: Supple without lymphadenopathy LUNGS: LCTAB CV: RRR ABDOMEN: Soft, nontender in all quads, no guarding no rebound tenderness, plus left CVA tenderness/L flank tenderness EXTREMITY: Normal ROM SKIN: No rash or erythema, no signs of track ley, no visible patches, no noticeable cellulitis NEURO: Following commands, moving all extremities, GCS of 14 (confused), AAOX1 PSYCH: Normal mood and affect Course Vital Signs: Vital signs: Vital Signs Temperature 98.0 F 01/17/21 11:24 Pulse Rate 79 01/17/21 20:56 Respiratory Rate 16 01/17/21 20:56 Blood Pressure 148/81 01/17/21 20:56 Pulse Oximetry 95 01/17/21 20:56 MDM - General Adult MDM Narrative: Medical decision making narrative: [60]yo patient w/ hx of hepatic encelopathy and renal colic BIBA for AMS (Confusion) + L sided flank pa in and dysuria. HDS noted to be satting at 93-94% on RA. No signs of crackles on lung exam. +Cough, XR chest wnl. Toxidrome Findings: Negative. No rigidity or clonus of LE ankle/knee reflexes, no diaphoresis, pupils mid-ranged equal and reactive to light, no signs of track ley/body patches, normal bowel sounds, and bladder non-palpable/ non- distended. POC Glucose: 160 EKG: EKG: Normal Sinus Rhythm. No overt ischemic findings and no prolongation of QTc or QRS intervals. No signs of hyperkalemia (peaked T waves, QRS widening, and DC prolongation) Workup: CBC, CMP, acetaminophen level, salicylate level, VBG, CK, UA, ECG, UA/UDS, CT brain, XR Chest Intervention: Ceftriaxone, lactulose Lab Findings: UA consistent with gram negative bacteria Imaging studies: CT brain negative for any acute injuries. XR non focal. [1:45] On reassessment, is noted to be mildly elevated ammonia to the 70s above baseline of 50. Patient has UA consistent with UTI. Patient will be made to the hospital for altered mental status work-up. Case was discussed patient's family who is concerned that patient cannot take care of herself at home. Disposition: Admission for evaluation for AMS, need for guardianship, UTI w/ possible pyelonephritis Lab Data: Labs: Lab Results 01/17/21 01/17/21 01/17/21 Range/Units 12:15 12:15 12:15 WBC 3.1 L (4.0-10.0) 10^3/ uL RBC 4.40 (4.1-5.3) 10^6/u L Hgb 15.0 (11.5-15.3) g/dL Hct 44.0 (37.0-47.0) % MCV 100.0 H (81-99) fl MCH 34.1 H (28.0-34.0) pg MCHC 34.1 (30.0-36.0) g/dL RDW 13.7 (12.1-15.1) % Plt Count 81 L (130-400) 10^3/c mm MPV 10.8 H (7.4-10.4) fL Neut % (Auto) 59.4 % Lymph % (Auto) 25.6 % Converse % (Auto) 10.9 % Eos % (Auto) 3.2 % Baso % (Auto) 0.6 % Neut # (Auto) 1.86 (1.8-7.7) 10^3/u L Lymph # (Auto) 0.8 (0.8-4.8) 10^3/u L Converse # (Auto) 0.3 (0.2-0.9) 10^3/u L Eos # (Auto) 0.1 (0.0-0.8) 10^3/u L Baso # (Auto) 0.0 (0.0-0.1) 10^3/u L Nucleated RBC % (a uto) 0 % Nucleated RBCs # 0.0 /100WBC PT (12.1-14.9) SECO NDS INR (0.8-1.2) Sodium 137 (136-145) mmol/L Potassium 3.7 (3.5-5.1) mmol/L Chloride 108 H (98-107) mmol/L Carbon Dioxide 21 L (22-29) mmol/L Anion Gap 11.7 (5-19) BUN 5 L (8-23) mg/dL Creatinine 0.4 L (0.5-0.9) mg/dL GFR Calculation 161.7 H (90-130) mL/min Glucose 88 (65-115) mg/dL Calculated Osmolal ity 281 L (285-295) mOsm/k g Lactate 1.5 (0.5-2.2) mmol/L Calcium 8.6 (8.5-10.5) mg/dL Total Bilirubin 3.4 H (0.15-1.2) mg/dL AST 34 H (0-32) U/L ALT 12 (0-33) U/L Alkaline Phosphata se 138 H (35-105) IU/L Ammonia (11-51) umol/L Creatine Kinase (26-192) U/L Troponin T Gen 5 n g/L (0-10) ng/L C-Reactive Protein (0.0-4.9) mg/L NT-Pro-B Natriuret Pep 52 (0-125) pg/mL Total Protein 6.2 L (6.6-8.7) g/dL Albumin 2.7 L (3.5-5.2) g/dL Globulin 3.5 (1.3-4.6) g/dL Lipase 70 H (13-60) U/L Procalcitonin (0-0.5) ng/mL Free T4 (0.82-1.77) ng/d L Free T3 (2.0-4.4) PG/ML Urine Color (Yellow) Urine Appearance (CLEAR) Urine pH (5-7) Ur Specific Gravit y (1.005-1.030) Urine Protein (Negative) Urine Glucose (UA) (Normal) Urine Ketones (Negative) Urine Blood (Negative) Urine Nitrate (Negative) Urine Bilirubin (Negative) Urine Urobilinogen (Negative) mg/dL Ur Leukocyte Lori ase (Negative) Urine RBC (0-2) /hpf Urine WBC (0-5) /hpf Ur Squamous Epith Cells (0-5) /hpf Amorphous Sediment Urine Bacteria (NONE) /hpf Ethyl Alcohol (0-10) mg/dL SARS-CoV-2 Ag (Rap id) (Negative) 01/17/21 01/17/21 01/17/21 Range/Units 12:15 12:15 12:15 WBC (4.0-10.0) 10^3/ uL RBC (4.1-5.3) 10^6/u L Hgb (11.5-15.3) g/dL Hct (37.0-47.0) % MCV (81-99) fl MCH (28.0-34.0) pg MCHC (30.0-36.0) g/dL RDW (12.1-15.1) % Plt Count (130-400) 10^3/c mm MPV (7.4-10.4) fL Neut % (Auto) % Lymph % (Auto) % Converse % (Auto) % Eos % (Auto) % Baso % (Auto) % Neut # (Auto) (1.8-7.7) 10^3/u L Lymph # (Auto) (0.8-4.8) 10^3/u L Converse # (Auto) (0.2-0.9) 10^3/u L Eos # (Auto) (0.0-0.8) 10^3/u L Baso # (Auto) (0.0-0.1) 10^3/u L Nucleated RBC % (a uto) % Nucleated RBCs # /100WBC PT 18.40 H (12.1-14.9) SECO NDS INR 1.49 H (0.8-1.2) Sodium (136-145) mmol/L Potassium (3.5-5.1) mmol/L Chloride (98-107) mmol/L Carbon Dioxide (22-29) mmol/L Anion Gap (5-19) BUN (8-23) mg/dL Creatinine (0.5-0.9) mg/dL GFR Calculation (90-130) mL/min Glucose (65-115) mg/dL Calculated Osmolal ity (285-295) mOsm/k g Lactate (0.5-2.2) mmol/L Calcium (8.5-10.5) mg/dL Total Bilirubin (0.15-1.2) mg/dL AST (0-32) U/L ALT (0-33) U/L Alkaline Phosphata se (35-105) IU/L Ammonia (11-51) umol/L Creatine Kinase (26-192) U/L Troponin T Gen 5 n g/L 7 (0-10) ng/L C-Reactive Protein (0.0-4.9) mg/L NT-Pro-B Natriuret Pep (0-125) pg/mL Total Protein (6.6-8.7) g/dL Albumin (3.5-5.2) g/dL Globulin (1.3-4.6) g/dL Lipase (13-60) U/L Procalcitonin (0-0.5) ng/mL Free T4 (0.82-1.77) ng/d L Free T3 (2.0-4.4) PG/ML Urine Color (Yellow) Urine Appearance (CLEAR) Urine pH (5-7) Ur Specific Gravit y (1.005-1.030) Urine Protein (Negative) Urine Glucose (UA) (Normal) Urine Ketones (Negative) Urine Blood (Negative) Urine Nitrate (Negative) Urine Bilirubin (Negative) Urine Urobilinogen (Negative) mg/dL Ur Leukocyte Lori ase (Negative) Urine RBC (0-2) /hpf Urine WBC (0-5) /hpf Ur Squamous Epith Cells (0-5) /hpf Amorphous Sediment Urine Bacteria (NONE) /hpf Ethyl Alcohol (0-10) mg/dL SARS-CoV-2 Ag (Rap id) Negative (Negative) 01/17/21 01/17/21 01/17/21 Range/Units 12:15 12:43 12:53 WBC (4.0-10.0) 10^3/ uL RBC (4.1-5.3) 10^6/u L Hgb (11.5-15.3) g/dL Hct (37.0-47.0) % MCV (81-99) fl MCH (28.0-34.0) pg MCHC (30.0-36.0) g/dL RDW (12.1-15.1) % Plt Count (130-400) 10^3/c mm MPV (7.4-10.4) fL Neut % (Auto) % Lymph % (Auto) % [place]verse % (Auto) % Eos % (Auto) % Baso % (Auto) % Neut # (Auto) (1.8-7.7) 10^3/u L Lymph # (Auto) (0.8-4.8) 10^3/u L [place] # (Auto) (0.2-0.9) 10^3/u L Eos # (Auto) (0.0-0.8) 10^3/u L Baso # (Auto) (0.0-0.1) 10^3/u L Nucleated RBC % (a uto) % Nucleated RBCs # /100WBC PT (12.1-14.9) SECO NDS INR (0.8-1.2) Sodium (136-145) mmol/L Potassium (3.5-5.1) mmol/L Chloride (98-107) mmol/L Carbon Dioxide (22-29) mmol/L Anion Gap (5-19) BUN (8-23) mg/dL Creatinine (0.5-0.9) mg/dL GFR Calculation (90-130) mL/min Glucose (65-115) mg/dL Calculated Osmolal ity (285-295) mOsm/k g Lactate (0.5-2.2) mmol/L Calcium (8.5-10.5) mg/dL Total Bilirubin (0.15-1.2) mg/dL AST (0-32) U/L ALT (0-33) U/L Alkaline Phosphata se (35-105) IU/L Ammonia 74 H (11-51) umol/L Creatine Kinase 141 (26-192) U/L Troponin T Gen 5 n g/L (0-10) ng/L C-Reactive Protein 2.9 (0.0-4.9) mg/L NT-Pro-B Natriuret Pep (0-125) pg/mL Total Protein (6.6-8.7) g/dL Albumin (3.5-5.2) g/dL Globulin (1.3-4.6) g/dL Lipase (13-60) U/L Procalcitonin 0.09 (0-0.5) ng/mL Free T4 0.82 (0.82-1.77) ng/d L Free T3 3.0 (2.0-4.4) PG/ML Urine Color Yellow (Yellow) Urine Appearance Hazy A (CLEAR) Urine pH 7 (5-7) Ur Specific Gravit y 1.010 (1.005-1.030) Urine Protein Neg (Negative) Urine Glucose (UA) Norm (Normal) Urine Ketones Negative (Negative) Urine Blood Neg (Negative) Urine Nitrate Positive H (Negative) Urine Bilirubin Neg (Negative) Urine Urobilinogen 8 H (Negative) mg/dL Ur Leukocyte Lori ase 2+ H (Negative) Urine RBC None (0-2) /hpf Urine WBC 25-40 H (0-5) /hpf Ur Squamous Epith Cells 0-4 H (0-5) /hpf Amorphous Sediment Not Reportable Urine Bacteria 4+ H (NONE) /hpf Ethyl Alcohol < 10 (0-10) mg/dL SARS-CoV-2 Ag (Rap id) (Negative) Imaging Data^: Other Imaging: Radiologist's impression: [id number] [place], [place] [address]PJkt ReportSigned Patient: Patrice Phillips #: [id number]: [id number]#:[id number]/Sex: 60 / FADM Date: 01/17/21Loc: ERRoom/Bed:Attending Dr: Ordering Provider/Ordering MD: Helen Montoya MD Date of Service: 01/17/21 Procedure(s): XR chest 1V portable [id number] Accession Number(s): [id number] Report Number: [id number] WS: [id number] Exam: XR chest 1V portable [id number] Date/Time of Exam: 01/17/2021 11:44 AM Reason For Exam: cough Comparison 06/22/2019 and 03/30/2018 The lungs are fully expanded and clear. Chronic interstitial changes noted. Normal cardiomediastinal silhouette. No pleural effusions. Regional bony elements are unremarkable. XR/XR chest 1V portable [id number] IMPRESSION: 1. Chronic coarsening and nodularity of interstitial markings stable in appearance. 2. No acute cardiopulmonary finding. Dictated By:Elias Ro By:Elias Ro Date/Time:01/17/21 1154DD/ 1152 Discharge Plan Discharge Patient Disposition: Admitted As Inpatient Admit Provider: Jozef Pabon Clinical Impression: Altered mental state, Acute flank pain, Acute hepatic encephalopathy, UTI (urinary tract infection) Condition: Stable Coding Level of Care Code ED Rn Informatics for Zaheer Foley
[2021-01-17 12:26] LABS: Basophils % 0.6 %; Eosinophils # 0.1 10^3/uL (0.0-0.8); Eosinophils % 3.2 %; Lymphocytes # 0.8 10^3/uL (0.8-4.8); Lymphocytes % 25.6 %; Mean Corpuscular HGB Conc 34.1 g/dL (30.0-36.0); Mean Corpuscular Hemoglobin 34.1 pg (28.0-34.0); Mean Platelet Volume 10.8 fL (7.4-10.4); Monocytes # 0.3 10^3/uL (0.2-0.9); Monocytes % 10.9 %; Neutrophils # 1.86 10^3/uL (1.8-7.7); Neutrophils % 59.4 %; Nucleated Red Blood Cells % 0 %; Platelet Count 81 10^3/cmm (130-400); Red Cell Distribution Width 13.7 % (12.1-15.1); White Blood Count 3.1 10^3/uL (4.0-10.0)
[2021-01-17 12:47] LABS: SARS Covid-2 Antigen Negative (Negative)
[2021-01-17 13:01] LABS: Lactate (Lactic Acid level) 1.5 mmol/L (0.5-2.2)
[2021-01-17 13:03] LABS: Troponin T (5th) Once 7 ng/L (0-10)
[2021-01-17 13:12] LABS: Alanine Aminotransferase 12 U/L (0-33); Albumin Level 2.7 g/dL (3.5-5.2); Alkaline Phosphatase 138 IU/L (35-105); Aspartate Amino Transferase 34 U/L (0-32); Blood Urea Nitrogen 5 mg/dL (8-23); Calcium 8.6 mg/dL (8.5-10.5); Carbon Dioxide 21 mmol/L (22-29); Chloride 108 mmol/L (98-107); Globulin 3.5 g/dL (1.3-4.6); Glomerular Filtration Rate 161.7 mL/min (90-130); Glucose 88 mg/dL (65-115); Lipase 70 U/L (13-60); NT Pro B Type Natriuretic Pept 52 pg/mL (0-125); Osmolality Calculated 281 mOsm/kg (285-295); Sodium 137 mmol/L (136-145); Total Bilirubin 3.4 mg/dL (0.15-1.2); Total Protein 6.2 g/dL (6.6-8.7)
[2021-01-17 13:15] LABS: Anion Gap 11.7 (5-19); Potassium 3.7 mmol/L (3.5-5.1)
[2021-01-17 13:20] LABS: Add Urine Microscopic? YES; Bilirubin Urine Neg (Negative); Blood Urine Neg (Negative); Glucose Urine UA Norm (Normal); Ketones Urine Negative (Negative); Leukocyte Esterase Urine 2+ (Negative); Nitrate Urine Positive (Negative); Protein Urine Neg (Negative); Urine Appearance Hazy (CLEAR); Urine Color Yellow (Yellow); Urobilinogen Urine 8 mg/dL (Negative); pH Urine 7 (5-7)
[2021-01-17 13:25] LABS: Ammonia 74 umol/L (11-51)
[2021-01-17 13:28] LABS: Add Urine Culture? Yes; Bacteria Urine 4+ /hpf; Squamous Epithelial Cell Urine 0-4 /hpf (0-5); WBC Urine 25-40 /hpf (0-5)
[2021-01-17] MEDS: cefTRIAXone 1,000 MG in sodium chloride 0.9% (plus) 50 ML 100 MG IV (14:00)
--- NOTE | 2021-01-17 14:13 | CT_ITS ---
WS: [id number] CT ABDOMEN PELVIS TECHNIQUE: Contrast-enhanced CT of the abdomen and pelvis with coronal and sagittal reformatted image s. CLINICAL INFORMATION: rule out kidney infection per Dr Hagan COMPARISON: April 05, 2020 DLP: 1727.[address] scans at [facility] use at least one of these dose optimization techniques: automat ed exposure control; mA and/or kV adjustment per patient size (includes targeted exams where dose is matched to clinical indication); or iterative reconstruction. FINDINGS: History of portal vein thrombosis. Cholecystectomy. Cirrhotic liver. Splenomegaly. Marked upper abdom inal varices. Evidence of portal venous hypertension with splenorenal shunt. Gastrosplenic varices. M arked SMV varices in the right abdomen. Intra and extrahepatic biliary ductal dilatation is stable fr om previous. New heterogeneous peripheral enhancing low-attenuation lesions within the right hepatic lobe the larg est confluent lesion measuring 3.7 x 2.3 cm suspicious for neoplasm or metastatic disease. This is ne w since April 05, 2020. This can be further evaluated with ultrasound. Bibasilar atelectasis. Cardiomegaly. Adrenal gland is normal. Left adrenal adenoma stable from previo us measuring 14 mm. Normal caliber abdominal aorta. Mild aortic calcification. Sigmoid diverticulosis. No evidence of high-grade small or large obstruction. Hypertrophic changes avril mbar spine. Disc space narrowing worse L4-L5 and L5-S1. CT/CT abdomen pelvis w con* [id number] IMPRESSION: 1. Numerous new peripherally enhancing low-attenuation lesions in the right he patic lobe the largest measures 2.3 x 3.7 cm suspicious for hepatic neoplasm or metastatic disease. This can be further evaluated with ultrasound. 2. Liver cirrhosis with splenomegaly. 3. Marked portal venous hypertension with large varices. 4. Cardiomegaly. 5. Stable intra and extrahepatic biliary ductal dilatation postcholecystectomy . 6. Small left adrenal adenoma appears stable. Message left for Helen Montoya MD at 01/17/2021 3:21 PM.
[2021-01-17] MEDS: iohexol 300 mg/mL 100 mL Btl IV (14:37)
[2021-01-17] MEDS: lactulose oral liq 20 gm/30 mL UDC 30 GM PO (14:59)
--- NOTE | 2021-01-17 15:10 | P.HP_ITS ---
Providers/Chief Complaint Primary Care Provider: Natalie Lugo MD Chief Complaint: AMS, L FLANK PAIN History of Present Illness Patrice Phillips is a 60 year old female with a past medical history of right eye glucoma, hypothyroidism not on any medications, diastolic CHF, liver cirrhosis, with hepatic encephalopathy, portal vein thrombosis, gastroesophageal varices, portal hypertension, splenomegaly, who presents to [facility] for complaints of altered mental status. Currently patient is alert to person, not to place, not to time, she does not know her birthdate, she does answer questions but some of her answers do not make any sense, she is quite confused, but she is able to tell me she has no complaints except right sided flank pain, she thinks she has a bladder infection, patient lives at home with her grandmot her, who noticed that patient has been confused for the last few days, she is not been her normal self, she has been taking her lactulose. In the emergency room, patient was found to have elevated ammonia level 74, and evidence of urinary tract infection, hospitalist team was called for admission. Review of Systems Const: Denies: fever(s) Card: Denies: chest pain Resp: Denies: dyspnea GI: Denies: abdominal pain : Reports: flank pain and dysuria Musc: Denies: back pain Skin/Breast: Denies: rash Medications/Allergies Home Medications Medication Instructions Recorded Confirmed Last Taken Type nicotine 1 patch TRANSDERMAL DAILY #30 ea 06/23/19 09/30/20 07/23/19 10:00 Rx magnesium 250 mg PO DAILY 07/23/19 09/30/20 07/23/19 10:00 History multivitamin 1 tab PO DAILY 07/23/19 09/30/20 07/23/19 10:00 History brimonidine 0.15 % eye drops 1 drp OPHTHALMIC (EYE) TID #10 ml 11/08/20 Unknown Rx furosemide 40 mg tablet See Rx Instructions .ROUTE 11/08/20 Unknown Rx .COMPLEX #30 tab lactulose 10 gram/15 mL oral See Rx Instructions .ROUTE 11/08/20 Unknown Rx solution .COMPLEX #1350 ml levetiracetam 500 mg tablet 500 mg PO BID #60 tab 11/08/20 Unknown Rx potassium chloride 20 mEq 20 meq PO DAILY #90 each 11/08/20 Unknown Rx tablet,extended release(part/cryst) prednisolone acetate 1 % eye 1 drp OPHTHALMIC (EYE) BID #10 ml 11/08/20 Unknown Rx drops,suspension spironolactone 25 mg tablet See Rx Instructions .ROUTE 11/08/20 Unknown Rx .COMPLEX #30 tab tobramycin-dexamethasone 0.3 %-0.1 1 applic OPHTHALMIC (EYE) Q6H #3.5 11/08/20 Unknown Rx % eye ointment gm Allergies Allergy/AdvReac Type Severity Reaction Status Date / Time Sulfa (Sulfonamide Allergy Unknown unknown Verified 09/30/20 08:20 Antibiotics) PFSH Acute PFSH: Medical History (Updated 01/17/21 @ 15:21 by Jozef Pabon MD) Anxiety Diastolic congestive heart failure Esophageal varices Glaucoma Hepatic encephalopathy Hypertension Hypokalemia Liver cirrhosis Portal hypertension PVT (portal vein thrombosis) Smoking addiction Splenomegaly Surgical History History of cataract surgery History of removal of pigmented skin lesion Family History Other CAD (coronary artery disease) Hypertension Social History Smoking and tobacco status: current every day smoker cigarettes Packs smoked per day: 1 Years cigarettes smoked: 45 Second hand smoke exposure: No Alcohol intake: never Caregiver/support person: Yes Lives independently: No Household members: family Current occupational status: disabled History of recent travel: No Current gender identity: Female Vitals/I&O/Wt Last Vital Signs Temp 98.0 F 01/17/21 11:24 Pulse 78 01/17/21 12:00 Resp 18 01/17/21 11:24 BP 136/75 01/17/21 12:00 Pulse Ox 93 01/17/21 12:00 01/17/21 01/17/21 01/17/21 06:59 14:59 22:59 Intake Total 50 / 50 Balance 50 / 50 Weight last 48 hrs Weight 90.718 kg Physical Exam Const: COMMON NORMALS: no acute distress and alert ORIENTATION /CONSCIOUSNESS: Yes awake, Yes oriented to person and Yes confused; not oriented to place and not oriented to time Eye: COMMON NORMALS: Equal, round and reactive pupils present GENERAL EYE: appearance normal, both eyes and all related structures PUPIL: Yes Equal, round and reactive pupils present Neck/C-Spine: COMMON NORMALS: full ROM and no JVD THYROID: Thyroid normal Lymph: LYMPHATIC: no lymphadenopathy noted Resp: COMMON NORMALS: normal respiratory effort, No retractions, No use of accessory muscles and clear to auscultation bilaterally AUSCULTATION: clear to auscultation bilaterally Cardio: COMMON NORMALS: regular rate, regular rhythm, S1 normal heart sound present, S2 normal heart sound present, No gallops present (Cardio), No clicks present (Cardio) and No murmurs present (Cardio) RATE: regular rate RHYTHM : regular rhythm HEART SOUNDS: S1 normal heart sound present and S2 normal heart sound present GI: COMMON NORMALS: Normal to inspection, nondistended, normoactive bowel sounds present and Soft to palpation Back/Pelvis: GENERAL BACK: Yes CVA tenderness CVA tenderness: right Extremity: COMMON NORMALS: no pedal edema Neuro: COMMON NORMALS: moves all extremities SENSORIUM/ORIENTATION: Yes alert, Yes oriented to person and Yes oriented to place Psych: COMMON NORMALS: mental status grossly normal, Normal thought process present and cooperative THOUGHT PROCESS: Normal thought process present Data : 01/17/21 12:15 01/17/21 12:15 A&P Assessment and plan (1) Acute encephalopathy: -Likely combination of UTI, pyelonephritis, hepatic encephalopathy Plan: -Admit to general medical floors -Awaiting CT scan of the head, CT scan of the abdomen pelvis to evaluate for obstructive uropathy -Start Zosyn -Follow urine cultures, blood cultures -Start lactulose, rifaximin -Neurochecks, aspiration precautions, seizure precautions -Full code -SCDs for DVT prophylaxis, Lovenox contraindicated given history of gastroesophageal varices Status: Acute (2) UTI (urinary tract infection): Status: Acute (3) Liver cirrhosis: Etiology unclear, possibly secondary to portal vein thrombosis, is not on anticoagulation, history of gastroesophageal varices, portal hypertension, hepatic encephalopathy, splenomegaly Status: Acute (4) Seizures: Continue Keppra Status: Acute (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 Status: Acute (6) Hypertension: Status: Acute Qualifiers: Hypertension type: unspecified Qualified Code(s): I10 - Essential (primary) hypertension (7) Esophageal varices: Status: Acute (8) Anxiety: Status: Acute (9) Hypothyroidism: Is not taking levothyroxine, check on TSH Status: Acute Qualifiers: Hypothyroidism type: acquired Qualified Code(s): E03.9 - Hypothyroidism, unspecified Additional A&P Information Hyperbilirubinemia, likely secondary liver failure Attestations Medical Necessity Statement*: Patient requires hospitalization, inpatient, greater than 2 minutes, for acute encephalopathy secondary UTI, hyperammonemia, liver failure Coding Level of Care Code Acute Inventory Assistant for [facility] Fwd Diagnoses Acute encephalopathy G93.40 UTI (urinary tract infection) N39.0 Liver cirrhosis K74.60 Seizures R56.9 Rubeosis iridis H21.1X9 Hypertension I10 Hypertension type: unspecified Esophageal varices I85.00 Anxiety F41.9 Hypothyroidism E03.9 Hypothyroidism type: acquired
[2021-01-17 15:41] LABS: INR 1.49 (0.8-1.2)
[2021-01-17 15:43] LABS: C Reactive Protein 2.9 mg/L (0.0-4.9); Creatine Phosphokinase 141 U/L (26-192)
[2021-01-17 15:50] LABS: Procalcitonin 0.09 ng/mL (0-0.5)
[2021-01-17 16:03] LABS: Alcohol Level < 10 mg/dL (0-10)
--- NOTE | 2021-01-17 16:50 | PC.PHAR ---
PT UNABLE TO VERIFY MEDICATIONS-CALLED [facility] [phone] STATES SHE HAD A EMERGENCY COME UP AND SHE CANT VERIFY PTS MEDICATIONS STATES IF HER BOYFRIEND CAN FIND THE PTS MEDS THEN SHE WILL CALL US BACK-MAGNESIUM AND MULTIVITAMIN WAS FROM A PREVIOUS ENTERED MED LIST-PT BROUGHT IN MED BOTTLE FOR XIFAXAN,LACTULOSE,KEPPRA,AND [facility] STATES THEY FILLED SPIRONOLACTONE 25MG ON 12/17/20,AND ALPHAGAN P FILLED ON 12/17/20-LASIX WAS WRITTEN ON 11/08/20 EXT MED HISTORY SHOWS LAST FILLED ON 09/14/20-PHARMACY STATES PREDNISOLONE ACETATE IS ON HOLD-NOTES ARE MADE IN THE PHARMACY COMMENTS
[2021-01-17 16:58] LABS: Free T4 Free Thyroxine 0.82 ng/dL (0.82-1.77)
[2021-01-17 17:26] LABS: Lactic Sepsis W/Reflex 1.2 mmol/L (0.5-2.2)
--- NOTE | 2021-01-17 19:22 | PC.NURSE ---
NS not given d/t being discontinued on MAR
--- NOTE | 2021-01-17 21:40 | PC.NURSE ---
this nurse was advised that pt wants to leave AMA
--- NOTE | 2021-01-17 21:48 | PC.NURSE ---
speaking with Dr. Jerry about pt requesting to KIT
--- NOTE | 2021-01-17 21:51 | PC.NURSE ---
Dr. Jerry says its ok for pt to leave AMA if she is oriented.
--- NOTE | 2021-01-17 21:58 | PC.NURSE ---
went to reassess pt and pt is confused and alert only to self. dr. de la torre advised and states that we cannot let her go if she is confused. advised pt that she has to stay here so we can help her to feel better. pt is not accepting of this explanation. dr. de la torre states she will be placing orders for anxiety medications for this patient.
[2021-01-17] MEDS: haloperidol inj 5 mg/mL INJ 1 mL 1 MG IVP (22:29)
[2021-01-17] MEDS: LORazepam 2 mg/mL INJ 1 mL 1 MG IVP (22:29)
--- NOTE | 2021-01-17 23:30 | PC.NURSE ---
report called to Kyara
[2021-01-18 00:10] VITALS: BP 129/81; PULSE 80; RESP 18; TEMP 36.8; O2SAT 90
[2021-01-18 01:51] VITALS: BMI 35.4
[2021-01-18 04:00] VITALS: BP 109/70; PULSE 77; RESP 16; TEMP 36.4; O2SAT 90
[2021-01-18 04:21] LABS: Hepatitis A Antibody IgM Non-Reactive (Nonreactive); Hepatitis B Core IgM Non-Reactive (Nonreactive); Hepatitis B Surface Antigen Non-Reactive (Nonreactive); Hepatitis C Virus Antibody Non-Reactive (Nonreactive); Thyroid Stimulating Hormone 0.21 uIU/mL (0.27-4.20)
[2021-01-18 06:54] LABS: Basophils % 0.8 %; Eosinophils # 0.1 10^3/uL (0.0-0.8); Eosinophils % 4.5 %; Hematocrit 40.8 % (37.0-47.0); Hemoglobin 13.7 g/dL (11.5-15.3); Lymphocytes # 0.8 10^3/uL (0.8-4.8); Lymphocytes % 28.2 %; Mean Corpuscular HGB Conc 33.6 g/dL (30.0-36.0); Mean Corpuscular Volume 101.2 fl (81-99); Mean Platelet Volume 10.8 fL (7.4-10.4); Monocytes # 0.2 10^3/uL (0.2-0.9); Neutrophils # 1.52 10^3/uL (1.8-7.7); Neutrophils % 57.1 %; Nucleated Red Blood Cells % 0 %; Platelet Count 72 10^3/cmm (130-400); Red Blood Count 4.03 10^6/uL (4.1-5.3); Red Cell Distribution Width 13.7 % (12.1-15.1); White Blood Count 2.7 10^3/uL (4.0-10.0)
[2021-01-18 07:00] LABS: INR 1.55 (0.8-1.2)
[2021-01-18 07:08] LABS: Ammonia 41 umol/L (11-51); Lactate (Lactic Acid level) 1.2 mmol/L (0.5-2.2)
[2021-01-18 07:11] LABS: Alanine Aminotransferase 11 U/L (0-33); Albumin Level 2.5 g/dL (3.5-5.2); Alkaline Phosphatase 119 IU/L (35-105); Anion Gap 9.7 (5-19); Aspartate Amino Transferase 34 U/L (0-32); Blood Urea Nitrogen 9 mg/dL (8-23); C Reactive Protein 3.3 mg/L (0.0-4.9); Calcium 8.4 mg/dL (8.5-10.5); Carbon Dioxide 23 mmol/L (22-29); Chloride 109 mmol/L (98-107); Globulin 3.1 g/dL (1.3-4.6); Glucose 81 mg/dL (65-115); Magnesium 1.7 mg/dL (1.7-2.3); Osmolality Calculated 284 mOsm/kg (285-295); Phosphorus 3.5 mg/dL (2.5-4.5); Potassium 3.7 mmol/L (3.5-5.1); Sodium 138 mmol/L (136-145); Total Bilirubin 4.1 mg/dL (0.15-1.2); Total Protein 5.6 g/dL (6.6-8.7)
[2021-01-18 07:25] LABS: NT Pro B Type Natriuretic Pept 62 pg/mL (0-125); Procalcitonin 0.09 ng/mL (0-0.5)
[2021-01-18 07:36] LABS: Creatine Phosphokinase 66 U/L (26-192)
[2021-01-18 07:55] VITALS: BP 111/64; PULSE 84; RESP 18; TEMP 36.7; O2SAT 91
--- NOTE | 2021-01-18 08:59 | PC.CHAP ---
Pastoral Care Encounter/Spiritual Assessment Type of Contact [] Declined mine development engineer visit [] Patient/Family/Request visit [] Outpatient visit [] Follow-up visit [] Physician referral [] Code/Alert [x] Routine visit [] Staff referral [] Actively dying [x] Patient sleeping [] Family support [] [] Out of room [] Palliative care [] [] Receiving care in room [] Pre-surgical visit [] Trauma [] Long length of stay [] ICU visit [] Other: Relational/Emotional Strength [] Patient feels connected with others/family/visitors/staff [] Distress [] Loneliness/isolation [] Abandonment Spirituality of Patient [] Person of Lizzie [] Attends Protestant of their Lizzie [] Believes in Prayer [] Reads Bible or Yazidism materials [] There are Spiritual issues to be addressed Ramp Boss Interventions [] Prayer [] Active listening [] Non-anxious presence [] Spiritual/emotional support [] Crisis/trauma care [] Spiritual counseling [] Bereavement support [] Provided bereavement packet [] Provided Bible/devotional materials [] Provided toy/stuffed animal, coloring book to patient or family member [] Provided Communion [] Anointing/[place] [] Salvation [] Completed spiritual assessment [] Other: Impact on Illness or Injury [] Angry [] Fearful [] Anxious [] Often cries [] Exhaustion [] Unable to work [] Unable to attend denominational [] Unable to walk/stand [] Unable to read [] Unable to drive [] Unable to eat/drink [] Unable to sleep [] Unable to be with family [] Patient intubated [] Other: Summary Time spent with patient
[2021-01-18] MEDS: multivitamin therapeutic Tablet 1 TAB PO (09:20)
[2021-01-18] MEDS: pantoprazole DR 40 mg Tablet PO (09:20)
[2021-01-18] MEDS: cyanocobalamin 1,000 mcg Tablet 500 MCG PO (09:20)
[2021-01-18] MEDS: levETIRAcetam 500 mg Tablet PO ×2 (09:20→18:22)
[2021-01-18] MEDS: folic acid 1 mg Tablet PO (09:20)
[2021-01-18] MEDS: piperacillin-tazobactam 3.375 GM in sodium chloride 0.9% (plus) 50 ML IV ×2 (09:49→16:06)
[2021-01-18] MEDS: levothyroxine 25 mcg Tablet 12.5 MCG PO (10:04)
[2021-01-18 11:49] VITALS: BP 104/69; PULSE 72; RESP 17; TEMP 36.7; O2SAT 93
--- NOTE | 2021-01-18 12:23 | PM.PN ---
Subjective Subjective: Interval history: Patient was seen this morning, she is alert to person, to place, not to time, she is quite drowsy, she tells me that she wants to be left alone, she is sleeping, her flank pain has improved, no fevers overnight, Vitals/I&O/Wt Last Vital Signs Temp 98.1 F 01/18/21 11:49 Pulse 72 01/18/21 11:49 Resp 17 01/18/21 11:49 BP 104/69 01/18/21 11:49 Pulse Ox 93 01/18/21 11:49 Weight last 48 hrs Weight 90.718 kg Weight 90.718 kg Physical Exam Const: ORIENTATION/CONSCIOUSNESS: Yes awake, Yes oriented to person and Yes oriented to place; not oriented to time Resp: COMMON NORMALS: normal respiratory effort, No retractions, No use of accessory muscles and clear to auscultation bilaterally AUSCULTATION: clear to auscultation bilaterally Cardio: COMMON NORMALS: regular rate, regular rhythm, S1 normal heart sound present and S2 normal heart sound present RATE: regular rate RHYTHM: regular rhythm HEART SOUNDS: S1 normal heart sound present and S2 normal heart sound present GI: COMMON NORMALS: Normal to inspection, nondistended, normoactive bowel sounds present, Soft to palpation and non-tender PALPATION: Yes Soft to palpation Extremity: COMMON NORMALS: no pedal edema Neuro: SENSORIUM/ORIENTATION: Yes oriented to person, Yes oriented to place and No oriented to time Data : 01/18/21 06:32 01/18/21 06:32 Micro: Microbiology 01/17/21 12:53 Urine Culture - Preliminary Urine,Clean Catch 01/17/21 16:24 Blood Culture - Preliminary Blood SPECIMEN COLLECTED 01/17/21 16:20 Blood Culture - Preliminary Blood SPECIMEN COLLECTED A&P Assessment and plan (1) Acute encephalopathy: -Likely combination of UTI, pyelonephritis, hepatic encephalopathy -CT of the head no acute findings -CT scan of the abdomen pelvis no acute pyelonephritis radiographically, no obstructive uropathy -Does have CVA tenderness on exam -WBC 2.7 Plan: -Admit to general medical floors -Continue Zosyn -Follow urine cultures, blood cultures -Start lactulose, rifaximin -Neurochecks, aspiration precautions, seizure precautions -Full code -SCDs for DVT prophylaxis, Lovenox contraindicated given history of gastroesophageal varices Plan for today, continue Zosyn, continue lactulose, continue to monitor cognitive status Status: Acute (2) UTI (urinary tract infection): Status: Acute (3) Liver cirrhosis: Etiology unclear, possibly secondary to portal vein thrombosis, is not on anticoagulation, history of gastroesophageal varices, portal hypertension, hepatic encephalopathy, splenomegaly -With anemia, thrombocytopenia, elevated INR, hyperbilirubinemia, hypoalbuminemia Status: Acute (4) Seizures: Continue Keppra Status: Acute (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 Status: Acute (6) Hypertension: Status: Acute Qualifiers: Hypertension type: unspecified Qualified Code(s): I10 - Essential (primary) hypertension (7) Esophageal varices: Status: Acute (8) Anxiety: Status: Acute (9) Hypothyroidism: Start levothyroxine 12.5 mcg daily Status: Acute Qualifiers: Hypothyroidism type: acquired Qualified Code(s): E03.9 - Hypothyroidism, unspecified Additional A&P Information Hyperbilirubinemia, likely secondary liver failure CT scan of the liver: Numerous new peripherally enhancing low-attenuation lesions in the right hepatic lobe the largest measures 2.3 x 3.7 cm suspicious for hepatic neoplasm or metastatic disease. This can be further evaluated with ultrasound. -We will order ultrasound -Needs to follow-up with GI Attestations Medical Necessity Statement*: Patient requires hospitalization for acute encephalopathy secondary UTI, pyelonephritis, hepatic encephalopathy Coding Level of Care Code Acute Cross Tie Maker for [facility] Fwd Diagnoses Acute encephalopathy G93.40 UTI (urinary tract infection) N39.0 Liver cirrhosis K74.60 Seizures R56.9 Rubeosis iridis H21.1X9 Hypertension I10 Hypertension type: unspecified Esophageal varices I85.00 Anxiety F41.9 Hypothyroidism E03.9 Hypothyroidism type: acquired
[2021-01-18] MEDS: lactulose oral liq 20 gm/30 mL UDC PO ×2 (13:07→18:22)
[2021-01-18 16:00] VITALS: BP 122/77; PULSE 79; RESP 17; TEMP 37; O2SAT 93
[2021-01-18 19:55] VITALS: BP 106/67; PULSE 72; RESP 16; TEMP 36.7; O2SAT 93
[2021-01-19] VITALS: BP 105/67; PULSE 88; RESP 16; TEMP 36.7; O2SAT 92
--- NOTE | 2021-01-19 00:10 | PC.NURSE ---
PATIENT HEARD YELLING FROM ROOM, FABRIC COATING SUPERVISOR ENTERED ROOM, PATIENT WAS STANDING WITH IV LINE PULLED TAUT. YELLING THAT SHE IS LEAVING AND GOING HOME. THIS PLACE ISN'T HELPING ME. I WILL GO TO THE PHARMACY AND GET MY OWN MEDS AND TAKE THEM. THIS NURSE ASKED PATIENT ORIENTATION QUESTIONS WHICH SHE DID ANSWER CORRECTLY. THIS NURSE ASKED PATIENT WHY SHE WAS WANTING TO LEAVE AND PATIENT STATED BECAUSE I WANT TO GO . THIS NURSE ASKED IF IT WOULD BE OK TO ADMINISTER MEDICATIONS THAT ARE CURRENTLY DUE AND PATIENT STATED NO, NOT REALLY. THIS NURSE NON ADMINISTERED THEM IN THE MAR AND CHARTED PATIENT REFUSED. CHARGE NURSE ENTERED ROOM AND ATTEMPTED TO TALK TO PATIENT. PATIENT RESPONDS BY YELLING AND BEING UNCOOPERATIVE. CHARGE NURSE CALLED [facility] OUT OF STATE AND THE 2ND ONE THAT WAS CALLED DID NOT ANSWER THE PHONE. PATIENT IS STILL ADAMANT ABOUT LEAVING. CONTINUES TO MUMBLE PHRASES ABOUT NOT STAYING HERE NO MATTER WHAT ANYONE SAYS, THAT THERE WILL BE HELL TO PAY EVEN IF ITS ALL BLAMED ON HER HER FAULT, BUT SHE DON'T CARE .
[2021-01-19] MEDS: haloperidol inj 5 mg/mL INJ 1 mL 1 MG IVP (00:25)
[2021-01-19 03:52] VITALS: BP 128/78; PULSE 86; RESP 16; TEMP 36.5; O2SAT 92
[2021-01-19 05:49] LABS: Basophils % 0.3 %; Eosinophils # 0.1 10^3/uL (0.0-0.8); Eosinophils % 3.1 %; Hematocrit 38.9 % (37.0-47.0); Hemoglobin 13.1 g/dL (11.5-15.3); Lymphocytes # 0.7 10^3/uL (0.8-4.8); Lymphocytes % 22.6 %; Mean Corpuscular HGB Conc 33.7 g/dL (30.0-36.0); Mean Corpuscular Hemoglobin 34.4 pg (28.0-34.0); Mean Corpuscular Volume 102.1 fl (81-99); Mean Platelet Volume 11.3 fL (7.4-10.4); Monocytes # 0.2 10^3/uL (0.2-0.9); Monocytes % 7.6 %; Neutrophils % 66.1 %; Nucleated Red Blood Cells % 0 %; Platelet Count 71 10^3/cmm (130-400); Red Blood Count 3.81 10^6/uL (4.1-5.3); Red Cell Distribution Width 13.9 % (12.1-15.1); White Blood Count 2.9 10^3/uL (4.0-10.0)
[2021-01-19 06:02] LABS: Lactate (Lactic Acid level) 0.8 mmol/L (0.5-2.2)
[2021-01-19 06:09] LABS: NT Pro B Type Natriuretic Pept 48 pg/mL (0-125); Procalcitonin 0.09 ng/mL (0-0.5)
[2021-01-19 06:20] LABS: Alanine Aminotransferase 11 U/L (0-33); Albumin Level 2.3 g/dL (3.5-5.2); Alkaline Phosphatase 115 IU/L (35-105); Anion Gap 10.6 (5-19); Aspartate Amino Transferase 32 U/L (0-32); Blood Urea Nitrogen 12 mg/dL (8-23); C Reactive Protein 3.8 mg/L (0.0-4.9); Calcium 8.3 mg/dL (8.5-10.5); Carbon Dioxide 24 mmol/L (22-29); Chloride 110 mmol/L (98-107); Creatine Phosphokinase 44 U/L (26-192); Globulin 3.4 g/dL (1.3-4.6); Glucose 87 mg/dL (65-115); Magnesium 1.7 mg/dL (1.7-2.3); Osmolality Calculated 291 mOsm/kg (285-295); Potassium 3.6 mmol/L (3.5-5.1); Sodium 141 mmol/L (136-145); Total Bilirubin 3.1 mg/dL (0.15-1.2); Total Protein 5.7 g/dL (6.6-8.7)
[2021-01-19 06:26] LABS: Ammonia 54 umol/L (11-51)
[2021-01-19 08:00] VITALS: BP 110/72; PULSE 90; RESP 18; TEMP 36.7; O2SAT 89
[2021-01-19] MEDS: cyanocobalamin 1,000 mcg Tablet 500 MCG PO (09:12)
[2021-01-19] MEDS: folic acid 1 mg Tablet PO (09:13)
[2021-01-19] MEDS: pantoprazole DR 40 mg Tablet PO (09:13)
[2021-01-19] MEDS: multivitamin therapeutic Tablet 1 TAB PO (09:13)
[2021-01-19] MEDS: levothyroxine 25 mcg Tablet 12.5 MCG PO (09:13)
[2021-01-19] MEDS: piperacillin-tazobactam 3.375 GM in sodium chloride 0.9% (plus) 50 ML IV (09:14)
[2021-01-19] MEDS: levETIRAcetam 500 mg Tablet PO ×2 (09:14→18:52)
[2021-01-19] MEDS: lactulose oral liq 20 gm/30 mL UDC PO ×2 (11:42→18:52)
[2021-01-19 12:00] VITALS: BP 113/69; PULSE 82; RESP 18; TEMP 36.6; O2SAT 88
--- NOTE | 2021-01-19 13:25 | P.PN_ITS ---
Subjective Subjective: Interval history: Patient was seen this morning, she is alert to person, to place, not to time, she follows all commands, she has no complaints, I advised her that currently her son and daughter cannot take care of her, and they want her to go to a [place], patient says that she wants to talk to her family, she has no complaints this morning, no chest pain, no shortness of breath, no lightheaded, dizziness last night patient's DPOA, who is her daughter from out of state, who is DPOA paperwork, has been talking to case workers that they want patient to go to a [facility] Vitals/I&O/Wt Last Vital Signs Temp 97.8 F 01/19/21 12:00 Pulse 82 01/19/21 12:00 Resp 18 01/19/21 12:00 BP 113/69 01/19/21 12:00 Pulse Ox 88 L 01/19/21 12:00 01/18/21 01/19/21 01/19/21 22:59 06:59 14:59 Intake Total 590 / 640 290 / 290 Balance 590 / 640 290 / 290 Weight last 48 hrs Weight 90.718 kg Physical Exam Const: COMMON NORMALS: no acute distress and alert ORIENTATION/CONSCIOUSNESS: Yes awake, Yes oriented to person and Yes oriented to place; not oriented to time Eye: OTHER: Corneal clouding right eye Neck/C-Spine: COMMON NORMALS: no JVD and Thyroid normal THYROID: Thyroid normal Lymph: LYMPHATIC: no lymphadenopathy noted Resp: COMMON NORMALS: normal respiratory effort, No retractions, No use of accessory muscles and clear to auscultation bilaterally AUSCULTATION: clear to auscultation bilaterally Cardio: COMMON NORMALS: no JVD, regular rate, regular rhythm, S1 normal heart sound present, S2 normal heart sound present, No gallops present (Cardio), No clicks present (Cardio) and No murmurs present (Cardio) RATE: regular rate RHYTHM: regular rhythm HEART SOUNDS: S1 normal heart sound present and S2 normal heart sound present GI: COMMON NORMALS: Normal to inspection, nondistended, normoactive bowel sounds present, Soft to palpation and non-tender PALPATION: Yes Soft to palpation Extremity: COMMON NORMALS: no pedal edema Neuro: COMMON NORMALS: moves all extremities SENSORIUM/ORIENTATION: Yes alert, Yes oriented to person, Yes oriented to place and No oriented to time Data : 01/19/21 05:04 01/19/21 05:04 Micro: Microbiology 01/17/21 12:53 Urine Culture - Final Urine,Clean Catch Escherichia coli 01/17/21 16:24 Blood Culture - Preliminary Blood NEGATIVE TO DATE 01/17/21 16:20 Blood Culture - Preliminary Blood NEGATIVE TO DATE A&P Assessment and plan (1) Acute encephalopathy: -Likely combination of UTI, pyelonephritis, hepatic encephalopathy -CT of the head no acute findings -CT scan of the abdomen pelvis no acute pyelonephritis radiographically, no obstructive uropathy -Does have CVA tenderness on exam -Leukopenia, 2.9, likely secondary to infection Plan: -Admit to general medical floors -Continue Zosyn -Follow urine cultures, blood cultures -Continue lactulose, rifaximin -Neurochecks, aspiration precautions, seizure precautions -Full code -SCDs for DVT prophylaxis, Lovenox contraindicated given history of gastroesophageal varices Plan for today, continue Zosyn, continue lactulose, continue to monitor cognitive status, work with patient's DPOA for placement, PT OT Status: Acute (2) UTI (urinary tract infection): Status: Acute (3) Liver cirrhosis: Etiology unclear, possibly secondary to portal vein thrombosis, is not on anticoagulation, history of gastroesophageal varices, portal hypertension, hepatic encephalopathy, splenomegaly -With anemia, thrombocytopenia, elevated INR, hyperbilirubinemia, hypoalbuminemia Status: Acute (4) Seizures: Continue Keppra Status: Acute (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 Status: Acute (6) Hypertension: Status: Acute Qualifiers: Hypertension type: unspecified Qualified Code(s): I10 - Essential (primary) hypertension (7) Esophageal varices: Status: Acute (8) Anxiety: Status: Acute (9) Hypothyroidism: Start levothyroxine 12.5 mcg daily Status: Acute Qualifiers: Hypothyroidism type: acquired Qualified Code(s): E03.9 - Hypothyroidism, unspecified Additional A&P Information Hyperbilirubinemia, likely secondary liver failure WBC, 2.9, leukopenia, continue to monitor CT scan of the liver: Numerous new peripherally enhancing low-attenuation lesions in the right hepatic lobe the largest measures 2.3 x 3.7 cm suspicious for hepatic neoplasm or metastatic disease. This can be further evaluated with ultrasound. -We will order ultrasound -Needs to follow-up with GI [place], patient [place]A wants [place] be [place] a [place] Attestations Medical Necessity Statement*: Patient requires hospitalization for acute encephalopathy secondary UTI, hyperammonemia Coding Level of Care Code Acute Rose Grading Supervisor for [facility] Fwd Diagnoses Acute encephalopathy G93.40 UTI (urinary tract infection) N39.0 Liver cirrhosis K74.60 Seizures R56.9 Rubeosis iridis H21.1X9 Hypertension I10 Hypertension type: unspecified Esophageal varices I85.00 Anxiety F41.9 Hypothyroidism E03.9 Hypothyroidism type: acquired
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
--- NOTE | 2021-01-19 16:59 | PC.RESP ---
SMOKING CESSATION INFORMATION SENT TO PATIENT.
--- NOTE | 2021-01-19 17:10 | P.DS_ITS ---
Discharge Providers Date of Admission: 01/17/21 14:14 Date of Discharge: January 19, 2021 Attending Provider at Admission: Jozef Pabon MD Attending Provider at Discharge: Jozef Pabon MD Primary Care Provider: Natalie Lugo MD Diagnoses at Discharge Discharge Diagnosis (1) Acute encephalopathy: Status: Acute (2) UTI (urinary tract infection): Status: Acute (3) Liver cirrhosis: Status: Acute (4) Seizures: Status: Acute (5) Rubeosis iridis: Status: Acute (6) Hypertension: Status: Acute Qualifiers: Hypertension type: unspecified Qualified Code(s): I10 - Essential (primary) hypertension (7) Esophageal varices: Status: Acute (8) Anxiety: Status: Acute (9) Hypothyroidism: Status: Acute Qualifiers: Hypothyroidism type: acquired Qualified Code(s): E03.9 - Hypothyroidism, unspecified Reason for Visit Reason for Visit: AMS, L FLANK PAIN Hospital Course Hospital Course PATIENT LEFT [facility] Patrice Phillips is a 60 year old female with a past medical history of right eye glucoma, hypothyroidism not on any medications, diastolic CHF, liver cirrhosis, with hepatic encephalopathy, portal vein thrombosis, gastroesophageal varices, portal hypertension, splenomegaly, who presents to [facility] for complaints of altered mental status. Patient was made to [facility] for acute encephalopathy secondary to UTI, pyelonephritis, hepatic encephalopathy -Patient received IV antibiotics, cultures grew E. coli pansensitive, was kept on Zosyn, patient left [facility], ciprofloxacin was sent to her pharmacy -For her hepatic encephalopathy, she was managed with lactulose and rifaximin, mentation significantly improved, refill of rifaximin and lactulose was sent to the pharmacy -For her liver cirrhosis, she has anemia, thrombocytopenia, elevated INR, hyperbilirubinemia, hypoalbuminemia secondary to her chronic liver failure -Patient CT scan of the liver showed Numerous new peripherally enhancing low- attenuation lesions in the right hepatic lobe the largest measures 2.3 x 3.7 cm suspicious for hepatic neoplasm or metastatic disease. -Liver ultrasound showed Multiple hypoechoic lesions within the liver suspicious for metastatic disease. Hepatic cirrhosis. -Patient left AGAINST MEDICAL ADVICE before any further work-up could be done -Patient was seen by psychiatry, as there was a question if she had the capacity to make decisions, she was deemed that she had the capacity to make for herself -I had strongly advised patient to go to a [place] [facility] [place] for short-term rehab, however she could decline, left AGAINST MEDICAL ADVICE -I discussed with her the risks of leaving AGAINST MEDICAL ADVICE, the risk including but not limited to significant morbidity and mortality, risk of , reverse of sepsis, she understood these risks, and chose to leave AGAINST MEDICAL ADVICE -Patient has left with her family to [place] -I wanted to go over patient's discharge instructions with her DPOA to the appropriate follow-up could be done, specifically with these metastatic lesions in the liver, she needs to see an oncologist, however patient left AGAINST MEDICAL ADVICE, I have reached out to patient's DPOA and left a message on her answering machine for her to call me back Discharge Data Data Completed and Pending: Completed Studies During Hospitalization Category Date Time Status CT abdomen pelvis w con* [id number] Urge nt Cat Scan 01/17/21 14:[address] head wo con* [id number] Urgent Cat Scan 01/17/21 11:33 Completed XR chest 1V jeni ble [id number] Stat Exams 01/17/21 11:33 Completed Pending at discharge Category Date Time Status Ammonia AM LABS Lab 01/20/21 04:00 Ordered Blood Culture Sta t Lab 01/17/21 16:24 Results C Reactive Protei n AM LABS Lab 01/20/21 04:00 Ordered Complete Blood Co unt w/Auto AM LABS Lab 01/20/21 04:00 Ordered Complete Blood Co unt w/Auto AM LABS Lab 01/21/21 04:00 Ordered Comprehensive Met abolic Panel AM LA BS Lab 01/20/21 04:00 Ordered Comprehensive Met abolic Panel AM LA BS Lab 01/21/21 04:00 Ordered Creatine Phosphok inase AM LABS Lab 01/20/21 04:00 Ordered Lactate (Lactic A danae level) AM LABS Lab 01/20/21 04:00 Ordered Magnesium AM LABS Lab 01/20/21 04:00 Ordered NT Pro B Type Brionna riuretic Pept QAM Lab 01/20/21 06:00 Ordered Phosphorus AM LAB S Lab 01/20/21 04:00 Ordered Procalcitonin AM LABS Lab 01/20/21 04:00 Ordered Prothrombin Time INR AM LABS Lab 01/20/21 04:00 Ordered Prothrombin Time INR AM LABS Lab 01/20/21 04:00 [place]dered [place] liver [id number] Ro utine Ultrasound 01/19/21 13:28 Ordered Labs from last 24 hours 01/19/21 01/19/21 01/19/21 05:04 05:04 05:04 WBC RBC Hgb Hct MCV MCH MCHC RDW Plt Count MPV Neut % (Auto) Lymph % (Auto) Trigg % (Auto) Eos % (Auto) Baso % (Auto) Neut # (Auto) Lymph # (Auto) Trigg # (Auto) Eos # (Auto) Baso # (Auto) Nucleated RBC % (a uto) Nucleated RBCs # PT 19.40 H INR 1.60 H Sodium Potassium Chloride Carbon Dioxide Anion Gap BUN Creatinine GFR Calculation Glucose Calculated Osmolal ity Lactate 0.8 Calcium Phosphorus Magnesium Total Bilirubin AST ALT Alkaline Phosphata se Ammonia 54 H Creatine Kinase C-Reactive Protein NT-Pro-B Natriuret Pep Total Protein Albumin Globulin Procalcitonin 01/19/21 01/19/21 05:04 05:04 WBC 2.9 L RBC 3.81 L Hgb 13.1 Hct 38.9 MCV 102.1 H MCH 34.4 H MCHC 33.7 RDW 13.9 Plt Count 71 L MPV 11.3 H Neut % (Auto) 66.1 Lymph % (Auto) 22.6 Trigg % (Auto) 7.6 Eos % (Auto) 3.1 Baso % (Auto) 0.3 Neut # (Auto) 1.90 Lymph # (Auto) 0.7 L Trigg # (Auto) 0.2 Eos # (Auto) 0.1 Baso # (Auto) 0.0 Nucleated RBC % (a uto) 0 Nucleated RBCs # 0.0 PT INR Sodium 141 Potassium 3.6 Chloride 110 H Carbon Dioxide 24 Anion Gap 10.6 BUN 12 Creatinine 0.5 GFR Calculation 125.0 Glucose 87 Calculated Osmolal ity 291 Lactate Calcium 8.3 L Phosphorus 3.0 Magnesium 1.7 Total Bilirubin 3.1 H AST 32 ALT 11 Alkaline Phosphata se 115 H Ammonia Creatine Kinase 44 C-Reactive Protein 3.8 NT-Pro-B Natriuret Pep 48 Total Protein 5.7 L Albumin 2.3 L Globulin 3.4 Procalcitonin 0.09 Vitals: Last Vital Signs Temp 97.8 F 01/19/21 12:00 Pulse 82 01/19/21 12:00 Resp 18 01/19/21 12:00 BP 113/69 08/25/21 12:00 Pulse Ox 88 L 01/19/21 12:00 Discharge Plan Discharge Patient Disposition: Home Condition: Stable Prescriptions: New Vitamin B-12 1,000 mcg Tablet 1,000 mcg PO DAILY 30 Days Qty: 30 RF: 0 folic acid 1 mg Tablet 1 mg PO DAILY 30 Days Qty: 30 RF: 0 lactulose 20 gram/30 mL Solution 20 g PO Q6H 30 Days Qty: 3600 RF: 0 levothyroxine 25 mcg Tablet 12.5 mcg PO DAILY 30 Days Qty: 30 RF: 0 Thera 400 mcg Tablet 1 tab PO DAILY 30 Days Qty: 30 RF: 0 pantoprazole 40 mg Tablet,Delayed Release (Dr/Ec) 40 mg PO DAILY 30 Days Qty: 30 RF: 0 Xifaxan 550 mg Tablet 550 mg PO BID 30 Days Qty: 60 RF: 0 Cipro 500 mg tablet 500 mg PO BID 5 Days Qty: 10 RF: 0 magnesium 250 mg tablet 250 mg PO DAILY 30 Days Qty: 30 RF: 0 Continued levetiracetam [Keppra] 500 mg tablet 500 mg PO BID Qty: 60 RF: 2 furosemide 40 mg tablet 40 mg PO DAILY RF: 0 TobraDex 0.3-0.1 % ointment 1 applic ophthalmic (eye) Q6H RF: 0 spironolactone 25 mg tablet 25 mg PO DAILY RF: 0 prednisolone acetate 1 % drops,suspension 1 drp ophthalmic (eye) BID RF: 0 Alphagan P 0.15 % drops 1 drp ophthalmic (eye) TID RF: 0 Discontinued potassium chloride 20 mEq tablet,ER particles/crystals 20 meq PO DAILY Qty: 90 RF: 0 Xifaxan 550 mg Tablet 550 mg PO BID RF: 0 lactulose 10 gram/15 mL solution 15 ml PO TID PRN (Reason: Constipation) RF: 0 magnesium 250 mg Tablet 250 mg PO DAILY RF: 0 multivitamin Tablet 1 tab PO DAILY RF: 0 Discharge Orders: Discharge Order (Routine); Ordered 01/19/21 Ordered By: Jozef Pabon Referrals: Viktor Bermudez MD [Hospitalist] - 2 weeks (liver lesions PLEASE CALL FOR AP POINTMENT ) Natalie Lugo MD [Primary Care Provider] - (PLEASE CALL FOR APPOINTMENT ) Discharge Diet: Cardiac Discharge Activity: Resume usual activity Patient Instructions: Opioid Safety Activity Restrictions/Additional Instructions: -for liver lesions please follow up with hand fretted instrument maker and dr. bermudez -take antibiotics for UTI -take lactulose and rifaxamin -stop alcohol use -i strongly advise for you to go to [place] [facility] [place] Discharge Attestations Time Spent in Discharge Care*: less than 30 min Quality Metrics Clinical Quality Measures During this hospital stay, did patient experience: None Coding Level of Care Code Acute Chg FW DC note Diagnoses Acute encephalopathy G93.40 UTI (urinary tract infection) N39.0 Liver cirrhosis K74.60 Seizures R56.9 Rubeosis iridis H21.1X9 Hypertension I10 Hypertension type: unspecified Esophageal varices I85.00 Anxiety F41.9 Hypothyroidism E03.9 Hypothyroidism type: acquired
[2021-01-19 19:41] VITALS: BP 129/83; PULSE 86; RESP 16; TEMP 36.7; O2SAT 92
--- NOTE | 2021-01-20 00:52 | PC.NURSE ---
Wanting to leave: Shortly after shift change this evening the pt was wandering in the [place] and when asked where she was going she stated I want to leave . Per Pina SINGER, patient is homeless and has been staying at various family members homes over the last few years. Attempted to contact family listed in the chart to come and get the patient but no one answered. Asked the patient where she wanted to go and she was unable to give an answer or address. Contacted 2 local homeless shelters and there was no bed available tonight. Advised the patient that she had no where to go and that if she would agree to stay tonight we would continue to reach out to family for a ride, patient agreed and went back into her room.
[2021-01-20 03:24] VITALS: BP 141/85; PULSE 84; RESP 16; TEMP 36.7; O2SAT 93
[2021-01-20 05:50] LABS: Basophils % 0.8 %; Eosinophils # 0.1 10^3/uL (0.0-0.8); Eosinophils % 3.6 %; Hematocrit 44.3 % (37.0-47.0); Hemoglobin 15.1 g/dL (11.5-15.3); Lymphocytes % 26.6 %; Mean Corpuscular HGB Conc 34.1 g/dL (30.0-36.0); Mean Corpuscular Hemoglobin 34.2 pg (28.0-34.0); Mean Corpuscular Volume 100.5 fl (81-99); Mean Platelet Volume 11.3 fL (7.4-10.4); Monocytes # 0.3 10^3/uL (0.2-0.9); Monocytes % 8.6 %; Neutrophils # 2.17 10^3/uL (1.8-7.7); Neutrophils % 60.1 %; Nucleated Red Blood Cells % 0 %; Platelet Count 91 10^3/cmm (130-400); Red Blood Count 4.41 10^6/uL (4.1-5.3); Red Cell Distribution Width 13.8 % (12.1-15.1); White Blood Count 3.6 10^3/uL (4.0-10.0)
--- NOTE | 2021-01-20 06:00 | US_ITS ---
WS: [id number] RIGHT UPPER QUADRANT ULTRASOUND HISTORY: liver lesions COMPARISON: CT 01/17/2021, Liver: 14.6 cm in length. Liver is normal size with diffuse coarse echotexture. Multiple areas of dec reased echogenicity within the liver corresponding the findings on the recent CT. No increased vascul arity. Surface of the liver is irregular and nodular. Gallbladder: Status post cholecystectomy. CBD: 1.7 cm Pancreas: Visualized patient pancreas is limited. No abnormality identified. Right kidney: 10.7 cm in length. Normal size and echogenicity. No hydronephrosis or mass. Aorta and IVC: Unremarkable abdominal aorta and IVC. No ascites. US/US liver [id number] IMPRESSION: 1. Multiple hypoechoic lesions within the liver suspicious for metastatic dise ase. 2. Hepatic cirrhosis. 3. Dilated common bile duct may be on the basis of cholecystectomy. Progressiv e dilatation over multiple years.
[2021-01-20 06:10] LABS: INR 1.44 (0.8-1.2)
[2021-01-20 06:15] LABS: Ammonia 65 umol/L (11-51)
[2021-01-20 06:31] LABS: NT Pro B Type Natriuretic Pept 66 pg/mL (0-125); Procalcitonin 0.08 ng/mL (0-0.5)
[2021-01-20 06:43] LABS: Alanine Aminotransferase 12 U/L (0-33); Anion Gap 10.8 (5-19); C Reactive Protein 3.6 mg/L (0.0-4.9); Calcium 8.9 mg/dL (8.5-10.5); Carbon Dioxide 23 mmol/L (22-29); Creatine Phosphokinase 55 U/L (26-192); Globulin 4.1 g/dL (1.3-4.6); Glucose 90 mg/dL (65-115); Magnesium 1.7 mg/dL (1.7-2.3); Osmolality Calculated 288 mOsm/kg (285-295); Phosphorus 2.8 mg/dL (2.5-4.5); Potassium 3.8 mmol/L (3.5-5.1); Sodium 140 mmol/L (136-145); Total Protein 6.9 g/dL (6.6-8.7)
[2021-01-20 06:45] LABS: Albumin Level 2.8 g/dL (3.5-5.2); Alkaline Phosphatase 148 IU/L (35-105); Aspartate Amino Transferase 34 U/L (0-32); Blood Urea Nitrogen 7 mg/dL (8-23); Chloride 110 mmol/L (98-107); Total Bilirubin 2.9 mg/dL (0.15-1.2)
--- NOTE | 2021-01-20 08:22 | PC.NURSE ---
AMA Patient's brother arrived to take her home with him in [place]. AMA paperwork signed, patient verbalized understanding that she was leaving against the doctor's recommendation. Copy of home medication list was provided.
--- NOTE | 2021-01-20 08:27 | PC.NURSE ---
KIT: Spoke to Pina Hanson as well as Natalie several times throughout the night to discuss a plan for the patient because she does not want to stay in the hospital. Pina (the pt DPOA) arranged with her Uncle Omid Ford (the patient's brother) that Ms. Phillips is going stay with him. Mr. Ford drove from [place] through the night to knot picker cloth the patient. Medications were sent to [facility] pharmacy in [place] and they will pick them up on the way back to [place].
[2021-01-20 08:30] VITALS: BP 141/85; PULSE 84; RESP 16; TEMP 36.7; O2SAT 93
== END 2021-01-20 08:30 | disposition home or self-care (01) | DRG 689 ==
LOC: ER 15:21 → ER IP 18:20 → MEDSURG 23:08
PROVIDERS: Admitting Provider Family Medicine; Emergency Provider Emergency Medicine; PCP Family Medicine; Visit Provider Family Medicine
DX: N39.0 Urinary tract infection, site not specified (principal); K72.00 Acute and subacute hepatic failure without coma; I81 Portal vein thrombosis; I50.30 Unspecified diastolic (congestive) heart failure; K76.6 Portal hypertension; I85.00 Esophageal varices without bleeding; K72.10 Chronic hepatic failure without coma; F41.9 Anxiety disorder, unspecified; I11.0 Hypertensive heart disease with heart failure; H40.9 Unspecified glaucoma; F17.210 Nicotine dependence, cigarettes, uncomplicated; E03.9 Hypothyroidism, unspecified; N12 Tubulo-interstitial nephritis, not specified as acute or chronic; R56.9 Unspecified convulsions; H21 Other disorders of iris and ciliary body; B96.20 Unspecified Escherichia coli [E. coli] as the cause of diseases classified elsewhere; D69.6 Thrombocytopenia, unspecified; D64.9 Anemia, unspecified; Z53.29 Procedure and treatment not carried out because of patient's decision for other reasons
CPT/HCPCS: 36415; 70450; 71045; 74177; 76705; 80053; 80074; 80307; 81001; 82140; 82550; 83605; 83690; 83735; 83880; 84100; 84145; 84439; 84443; 84481; 84484; 85025; 85610; 86140; 87040; 87077; 87086; 87186; 87426; 92523; 92610; 93005; 96365; 96375; 97116; 97161; 97165; 99285; J0696; J1630; J2060; J2543; Q9967